=== PATIENT | male | born 1955 | race Caucasian/White ===

== ENCOUNTER 2021-07-15 10:04 | Emergency (ER) | payer MEDICARE, SELFPAY ==
[2021-07-15] VITALS (18 sets, daily range): BP systolic 117–148; BP diastolic 73–100; PULSE 57–78; RESP 14–24; TEMP 36.7; O2SAT 93–98; BMI 31.2
--- NOTE | 2021-07-15 10:16 | DI.RAD.S_ITS ---
PROCEDURE: XR CHEST 2V INDICATIONS: shortness of breath TECHNIQUE: 2 views of the chest were acquired. COMPARISON: None. FINDINGS: Surgical changes and devices: None. Lungs and pleura: Lungs are clear. No pleural effusions or pneumothorax. Mediastinum: Mediastinal contours are normal. Heart size is normal. Bones and chest wall: No suspicious bony abnormalities. Soft tissues appear unremarkable. IMPRESSION: No acute cardiopulmonary pathology. Dictated by: Taqueria Ennis M.D. on 07/15/2021 at 11:24 Approved by: Taqueria Ennis M.D. on 07/15/2021 at 11:24
[2021-07-15 10:35] LABS: Add Manual Diff / Slide Review NO; Basophils Absolute Auto 0 /uL (0-100); Basophils Percent Auto 0.8 % (0-2); Eosinophils Absolute Auto 100 /uL (0-450); Eosinophils Percent Auto 2.5 % (2-4); Hematocrit 39.5 % (41-53); Lymphocytes Absolute Auto 1200 /uL (1100-4500); Lymphocytes Percent Auto 26.2 % (25-40); Mean Corpuscular HGB Conc 35.5 % (30-36); Mean Corpuscular Hemoglobin 31.4 PG (26-34); Mean Corpuscular Volume 88.5 fL (80-100); Monocytes Absolute Auto 600 /uL (0-900); Monocytes Percent Auto 12.8 % (3-14); Neutrophils Absolute Auto 2700 /uL (1500-7000); Neutrophils Percent Auto 57.7 % (50-75); Platelet Count 185 X10^3/uL (150-400); Red Blood Cell Count 4.46 X10^6/uL (4.5-5.9); Red Cell Distribution Width 13.1 % (11.6-14.8); White Blood Cell Count 4.6 X10^3/uL (4.5-11.0)
[2021-07-15 10:44] LABS: Alanine Aminotransferase 22 IU/L (<50); Albumin 4.5 g/dL (3.5-5.0); Albumin Globulin Ratio 1.5 (1.0-2.8); Alkaline Phosphatase 78 U/L (38-126); Aspartate Aminotransferase 29 IU/L (17-59); BUN Creatinine Ratio 16.2 (6-22); Bilirubin Total 0.6 mg/dL (0.2-1.3); Blood Urea Nitrogen 17 mg/dL (9-20); Calcium 8.8 mg/dL (8.4-10.2); Carbon Dioxide 26 mmol/L (22-32); Chloride 107 mmol/L (98-107); Estimated Glomerular Filt Rate > 60 mL/min (>60); Globulin 3.1 g/dL (1.7-4.1); Glucose 117 mg/dL (80-110); HEMOLYSIS < 15 (0-50); Potassium 3.8 mmol/L (3.4-5.1); Sodium 140 mmol/L (137-145); Total Protein 7.6 g/dL (6.3-8.2)
[2021-07-15 10:45] LABS: Lactate (Lactic Acid) 1.2 mmol/L (0.7-2.1)
[2021-07-15 10:53] LABS: NT-proBNP (BNP-Adult 18+) 57 pg/mL (<125)
[2021-07-15 11:03] LABS: Creatine Kinase 206 U/L (55-170)
[2021-07-15 11:17] LABS: Troponin I < 0.012 ng/mL (0.01-0.034)
[2021-07-15 11:19] LABS: CKMB % Relative Index 1.3 % (1.5-5.0); Creatine Kinase MB 2.59 ng/mL (<2.37)
--- NOTE | 2021-07-15 13:52 | ED.EXTPRO ---
HPI - Extremity Problem <DAVION Olson - Last Filed: 07/15/21 16:36> General Chief complaint: Extremity Problem,Nontraumatic Stated complaint: Swollen Feet x 3 days Time Seen by Provider: 07/15/21 10:46 Source: patient Mode of arrival: Ambulatory History of Present Illness HPI Narrative: This is a 66-year-old male with history of hypertension on three antihypertensives who presents to the emergency department complaining of swollen lower extremities for the last three days without any trauma, pain, sensation changes, shortness of breath, chest pain, difficulty breathing or other symptom. Patient denies any cardiac history, lung problems, swelling in any other area. He states he had a fairly physical last few days of moving stuff around in the garage, states that he has been active as he normally use, denies history of swollen lower legs in the past. He states that he takes his hydrochlorothiazide approximately 5 times per week, and he also takes amlodipine and lisinopril 10 mg daily. He states that he has been taking his other medications every day and this does not take his hydrochlorothiazide before he goes to the store or has busy errand days so he doesn't have to void so much. Patient denies any diaphoresis illness, abdominal pain, or any other symptom whatsoever. Related Data Allergies Allergy/AdvReac Type Severity Reaction Status Date / Time No Known Drug Allergies Allergy Verified 07/15/21 10:16 Review of Systems <DAVION Olson - Last Filed: 07/15/21 16:36> Review of Systems Narrative: General: denies fever, chills, malaise, sweats, fatigue Head/Neck: denies headache, neck pain, dizziness Eyes: denies visual changes, eye pain Cardio: denies chest pain, palpitations, edema Respiratory: denies dyspnea, cough, orthopnea GI: denies abdominal pain, nausea, vomiting, or diarrhea : denies dysuria, hematuria, urinary retention, frequency or incontinence MSK: denies joint pain, muscle weakness, endorses lower extremity swelling which is fairly mild but equal bilaterally, denies sensation changes Skin: denies rash, itching, skin lesions or other Neuro: denies numbness, tingling Patient History <DAVION Olson - Last Filed: 07/15/21 16:36> Social History Smoking Status: Unknown if ever smoked Smoking Status: Unknown if ever smoked alcohol intake frequency: holidays/special occasions only Substance Use Type: does not use Exam <DAVION Olson - Last Filed: 07/15/21 16:36> Narrative Exam Narrative: Independently reviewed vitals signs and nursing notes. General: cooperative, comfortable, in no acute distress, well groomed Head: atraumatic, symmetrical facial expressions Neck: supple Eyes: equal round and reactive, EOMI, conjunctiva normal Nose: nares patent, no rhinorrhea Mouth/Throat: moist mucus membranes Cardiovascular: regular rate and rhythm, no peripheral edema, warm extremities, S1-S2 without murmur, pulses are 2+ in extremities x4, cap refills brisk, dependent edema in lower extremities approximately 1+, no pitting edema over the tibial tuberosities bilaterally, no discoloration, erythema, wound, or sensation changes Respiratory: normal effort, able to speak in complete sentences, no audible wheezing, stridor, or rales. No retractions or tachypnea. GI: abdomen soft, nontender to palpation, nondistended, no masses, no exquisite tenderness with exam, without guarding or rebound. MSK: moves all extremities, neurovascularly intact, no weakness, normal tone Skin: brisk capillary refill, no rash, no erythema Neuro: normal speech and cognition, A&O x3 Psych: mental status is grossly normal, congruent mood, normal affect, pleasant and cooperative Initial Vital Signs Initial Vital Signs: Vital Signs Pulse Oximetry 96 07/15/21 10:13 <Melissa Meyer DO - Last Filed: 07/16/21 20:02> Initial Vital Signs Initial Vital Signs: Vital Signs Pulse Oximetry 96 07/15/21 10:13 Course <DAVION Olson - Last Filed: 07/15/21 16:36> Orders Ordered: ED Orders 07/15/21 10:16 XR chest 2V Stat Troponin & CK Cardiac Panel Stat EKG-12 Lead Stat Measure peak expiratory flow ONCE RT Consult Eval and Treat Now 07/15/21 10:25 Complete Blood Count AUTO DIFF Stat Comprehensive Metabolic Panel Stat Lactate (Lactic Acid) Stat NT-proBNP (BNP-Adult 18+) Stat Vital Signs Vital signs: Vital Signs - 8 hr 07/15/21 10:13 07/15/21 10:14 07/15/21 10:16 Temperature 98.1 F Pulse Rate 77 78 Pulse Rate [Bilateral Dorsalis Pedis] Respiratory Rate 15 Blood Pressure 134/100 H 134/100 H Pulse Oximetry 96 97 97 07/15/21 10:18 07/15/21 10:34 07/15/21 11:00 Temperature Pulse Rate 72 72 61 Pulse Rate [Bilateral Dorsalis Pedis] Respiratory Rate 19 23 14 Blood Pressure 145/73 H Pulse Oximetry 97 98 96 07/15/21 11:28 07/15/21 11:30 07/15/21 11:45 Temperature Pulse Rate 63 67 63 Pulse Rate [Bilateral Dorsalis Pedis] 60 Respiratory Rate 18 24 24 Blood Pressure 125/83 136/87 Pulse Oximetry 97 98 96 07/15/21 12:00 07/15/21 12:15 07/15/21 12:43 Temperature Pulse Rate 59 L 58 L 62 Pulse Rate [Bilateral Dorsalis Pedis] Respiratory Rate 16 14 16 Blood Pressure 117/79 120/77 Pulse Oximetry 96 93 95 07/15/21 12:45 07/15/21 13:00 07/15/21 13:15 Temperature Pulse Rate 64 57 L 58 L Pulse Rate [Bilateral Dorsalis Pedis] Respiratory Rate 18 16 15 Blood Pressure 127/81 Pulse Oximetry 98 95 97 07/15/21 13:30 07/15/21 13:45 07/15/21 13:58 Temperature Pulse Rate 68 67 61 Pulse Rate [Bilateral Dorsalis Pedis] Respiratory Rate 18 19 Blood Pressure 134/78 148/84 H Pulse Oximetry 97 96 96 <Melissa Meyer, - Last Filed: 07/16/21 20:02> Orders Ordered: ED Orders 07/15/21 10:16 XR chest 2V Stat Troponin & CK Cardiac Panel Stat EKG-12 Lead Stat Measure peak expiratory flow ONCE RT Consult Eval and Treat Now 07/15/21 10:25 Complete Blood Count AUTO DIFF Stat Comprehensive Metabolic Panel Stat Lactate (Lactic Acid) Stat NT-proBNP (BNP-Adult 18+) Stat Vital Signs Vital signs: Vital Signs - 8 hr 07/15/21 10:13 07/15/21 10:14 07/15/21 10:16 Temperature 98.1 F Pulse Rate 77 78 Pulse Rate [Bilateral Dorsalis Pedis] Respiratory Rate 15 Blood Pressure 134/100 H 134/100 H Pulse Oximetry 96 97 97 07/15/21 10:18 07/15/21 10:34 07/15/21 11:00 Temperature Pulse Rate 72 72 61 Pulse Rate [Bilateral Dorsalis Pedis] Respiratory Rate 19 23 14 Blood Pressure 145/73 H Pulse Oximetry 97 98 96 07/15/21 11:28 07/15/21 11:30 07/15/21 11:45 Temperature Pulse Rate 63 67 63 Pulse Rate [Bilateral Dorsalis Pedis] 60 Respiratory Rate 18 24 24 Blood Pressure 125/83 136/87 Pulse Oximetry 97 98 96 07/15/21 12:00 07/15/21 12:15 07/15/21 12:43 Temperature Pulse Rate 59 L 58 L 62 Pulse Rate [Bilateral Dorsalis Pedis] Respiratory Rate 16 14 16 Blood Pressure 117/79 120/77 Pulse Oximetry 96 93 95 07/15/21 12:45 07/15/21 13:00 07/15/21 13:15 Temperature Pulse Rate 64 57 L 58 L Pulse Rate [Bilateral Dorsalis Pedis] Respiratory Rate 18 16 15 Blood Pressure 127/81 Pulse Oximetry 98 95 97 07/15/21 13:30 07/15/21 13:45 07/15/21 13:58 Temperature Pulse Rate 68 67 61 Pulse Rate [Bilateral Dorsalis Pedis] Respiratory Rate 18 19 Blood Pressure 134/78 148/84 H Pulse Oximetry 97 96 96 MDM - Extremity (Nontraumatic) <Kailee Carreon [facility] - Last Filed: 07/15/21 16:36> Lab Data Result diagrams: 07/15/21 10:25 07/15/21 10:25 Labs: Lab Results 07/15/21 07/15/21 07/15/21 Range/Units 10:16 10:25 10:25 WBC 4.6 (4.5-11.0) X10^3/uL RBC 4.46 L (4.5-5.9) X10^6/uL Hgb 14.0 (13.5-17.5) g/dL Hct 39.5 L (41-53) % MCV 88.5 (80-100) fL MCH 31.4 (26-34) PG MCHC 35.5 (30-36) % RDW 13.1 (11.6-14.8) % Plt Count 185 (150-400) X10^3/uL Neut % (Auto) 57.7 (50-75) % Lymph % (Auto) 26.2 (25-40) % Noble % (Auto) 12.8 (3-14) % Eos % (Auto) 2.5 (2-4) % Baso % (Auto) 0.8 (0-2) % Neut # (Auto) 2700 (6958-2766) /uL Lymph # (Auto) 1200 (8503-5241) /uL Noble # (Auto) 600 (0-900) /uL Eos # (Auto) 100 (0-450) /uL Baso # (Auto) 0 (0-100) /uL Sodium 140 (137-145) mmol/L Potassium 3.8 (3.4-5.1) mmol/L Chloride 107 (98-107) mmol/L Carbon Dioxide 26 (22-32) mmol/L BUN 17 (9-20) mg/dL Creatinine 1.05 (0.66-1.25) mg/dL Estimated GFR > 60 (>60) mL/min BUN/Creatinine Ratio 16.2 (6-22) Glucose 117 H (80-110) mg/dL Lactate (0.7-2.1) mmol/L Calcium 8.8 (8.4-10.2) mg/dL Total Bilirubin 0.6 (0.2-1.3) mg/dL AST 29 (17-59) IU/L ALT 22 (<50) IU/L Alkaline Phosphatase 78 (38-126) U/L Total Creatine Kinase 206 H (55-170) U/L CK-MB (CK-2) 2.59 H (<2.37) ng/mL CK-MB (CK-2) Rel Index 1.3 L (1.5-5.0) % Troponin I < 0.012 (0.01-0.034) ng/mL NT-Pro-B Natriuret Pep 57 (<125) pg/mL Total Protein 7.6 (6.3-8.2) g/dL Albumin 4.5 (3.5-5.0) g/dL Globulin 3.1 (1.7-4.1) g/dL Albumin/Globulin Ratio 1.5 (1.0-2.8) 07/15/21 Range/Units 10:25 WBC (4.5-11.0) X10^3/uL RBC (4.5-5.9) X10^6/uL Hgb (13.5-17.5) g/dL Hct (41-53) % MCV (80-100) fL MCH (26-34) PG MCHC (30-36) % RDW (11.6-14.8) % Plt Count (150-400) X10^3/uL Neut % (Auto) (50-75) % Lymph % (Auto) (25-40) % Noble % (Auto) (3-14) % Eos % (Auto) (2-4) % Baso % (Auto) (0-2) % Neut # (Auto) (1621-7782) /uL Lymph # (Auto) (6346-4050) /uL Noble # (Auto) (0-900) /uL Eos # (Auto) (0-450) /uL Baso # (Auto) (0-100) /uL Sodium (137-145) mmol/L Potassium (3.4-5.1) mmol/L Chloride (98-107) mmol/L Carbon Dioxide (22-32) mmol/L BUN (9-20) mg/dL Creatinine (0.66-1.25) mg/dL Estimated GFR (>60) mL/min BUN/Creatinine Ratio (6-22) Glucose (80-110) mg/dL Lactate 1.2 (0.7-2.1) mmol/L Calcium (8.4-10.2) mg/dL Total Bilirubin (0.2-1.3) mg/dL AST (17-59) IU/L ALT (<50) IU/L Alkaline Phosphatase (38-126) U/L Total Creatine Kinase (55-170) U/L CK-MB (CK-2) (<2.37) ng/mL CK-MB (CK-2) Rel Index (1.5-5.0) % Troponin I (0.01-0.034) ng/mL NT-Pro-B Natriuret Pep (<125) pg/mL Total Protein (6.3-8.2) g/dL Albumin (3.5-5.0) g/dL Globulin (1.7-4.1) g/dL Albumin/Globulin Ratio (1.0-2.8) Imaging Data Chest x-ray: Radiologist's Impression: PROCEDURE:? XR CHEST 2V ? INDICATIONS:? shortness of breath ? TECHNIQUE:? 2 views of the chest were acquired.? ? COMPARISON:? None. ? FINDINGS:? ? Surgical changes and devices:? None.? ? Lungs and pleura:? Lungs are clear.? No pleural effusions or pneumothorax.? ? Mediastinum:? Mediastinal contours are normal.? Heart size is normal.? ? Bones and chest wall:? No suspicious bony abnormalities.? Soft tissues appear unremarkable.? ? IMPRESSION:? No acute cardiopulmonary pathology. ? ? Dictated by: Taqueria Ennis M.D. on 07/15/2021 at 11:24 ? ? Approved by: Taqueria Ennis M.D. on 07/15/2021 at 11:24 ? ECG Data Interpretation: EKG independently reviewed by myself and Dr. Meyer and reveals normal sinus rhythm at 72 bpm with regular axis and intervals. No STEMI, ST segment changes, arrhythmia, or acute ischemic changes. MDM Narrative Medical decision making narrative: This is a pleasant 66-year-old male with history of hypertension, who presents to the emergency department with only symptom of swelling in his lower extremities for the last three days. He states that increased physical exertion over the last couple of days while he has been moving things around in his garage. He denies any pain anywhere, denies any symptoms of heart failure including shortness of breath, difficulty breathing, chest pain, palpitations, denies any symptoms of illness including sore throat, cough, denies any pain in her lower extremities or muscle spasms. Denies any discoloration, on exam, he has mild lower extremity edema bilaterally, no discoloration, erythema, or tenderness to palpation. Lab work is grossly unremarkable, troponin is negative, BNP is 57, total CK is 206, CK-MB is 2.59, CK-MB relative index is 0.3 is low. No leukocytosis, or other abnormal lab findings. This is likely related to physical exertion, diet, or inconsistent HCTZ dosing at home. Recommend patient continue to take his HCTZ daily, put his feet up a couple times a day, consume a low-sodium diet, stay hydrated, and monitor his legs for worsening. They are equal bilaterally, no pitting edema over tibial tuberosities, PT and DP pulses are 2+, brisk cap refill. Discussed these findings with patient, chest x-ray does not show any pulmonary infiltrate, pleural effusion, cardiomegaly or other abnormal finding. Recommend patient follow-up with his primary care provider for any new or worsening symptoms. Patient is appropriate and amenable to discharge home. Vital signs are stable on repeat examination is unremarkable. Patient has been informed of results. Patient has been given strict return to ER precautions for any new or worsening symptoms. Patient understands to follow up closely with outpatient providers as instructed. Patient understands plan and agrees to discharge home. All questions and concerns answered at this time. <Melissa Meyer, DO - Last Filed: 07/16/21 20:02> Lab Data Labs: Lab Results 07/15/21 07/15/21 07/15/21 Range/Units 10:16 10:25 10:25 WBC 4.6 (4.5-11.0) X10^3/uL RBC 4.46 L (4.5-5.9) X10^6/uL Hgb 14.0 (13.5-17.5) g/dL Hct 39.5 L (41-53) % MCV 88.5 (80-100) fL MCH 31.4 (26-34) PG MCHC 35.5 (30-36) % RDW 13.1 (11.6-14.8) % Plt Count 185 (150-400) X10^3/uL Neut % (Auto) 57.7 (50-75) % Lymph % (Auto) 26.2 (25-40) % Noble % (Auto) 12.8 (3-14) % Eos % (Auto) 2.5 (2-4) % Baso % (Auto) 0.8 (0-2) % Neut # (Auto) 2700 (6719-9010) /uL Lymph # (Auto) 1200 (4781-9678) /uL Noble # (Auto) 600 (0-900) /uL Eos # (Auto) 100 (0-450) /uL Baso # (Auto) 0 (0-100) /uL Sodium 140 (137-145) mmol/L Potassium 3.8 (3.4-5.1) mmol/L Chloride 107 (98-107) mmol/L Carbon Dioxide 26 (22-32) mmol/L BUN 17 (9-20) mg/dL Creatinine 1.05 (0.66-1.25) mg/dL Estimated GFR > 60 (>60) mL/min BUN/Creatinine Ratio 16.2 (6-22) Glucose 117 H (80-110) mg/dL Lactate (0.7-2.1) mmol/L Calcium 8.8 (8.4-10.2) mg/dL Total Bilirubin 0.6 (0.2-1.3) mg/dL AST 29 (17-59) IU/L ALT 22 (<50) IU/L Alkaline Phosphatase 78 (38-126) U/L Total Creatine Kinase 206 H (55-170) U/L CK-MB (CK-2) 2.59 H (<2.37) ng/mL CK-MB (CK-2) Rel Index 1.3 L (1.5-5.0) % Troponin I < 0.012 (0.01-0.034) ng/mL NT-Pro-B Natriuret Pep 57 (<125) pg/mL Total Protein 7.6 (6.3-8.2) g/dL Albumin 4.5 (3.5-5.0) g/dL Globulin 3.1 (1.7-4.1) g/dL Albumin/Globulin Ratio 1.5 (1.0-2.8) 07/15/21 Range/Units 10:25 WBC (4.5-11.0) X10^3/uL RBC (4.5-5.9) X10^6/uL Hgb (13.5-17.5) g/dL Hct (41-53) % MCV (80-100) fL MCH (26-34) PG MCHC (30-36) % RDW (11.6-14.8) % Plt Count (150-400) X10^3/uL Neut % (Auto) (50-75) % Lymph % (Auto) (25-40) % Noble % (Auto) (3-14) % Eos % (Auto) (2-4) % Baso % (Auto) (0-2) % Neut # (Auto) (0758-8515) /uL Lymph # (Auto) (0391-8056) /uL Noble # (Auto) (0-900) /uL Eos # (Auto) (0-450) /uL Baso # (Auto) (0-100) /uL Sodium (137-145) mmol/L Potassium (3.4-5.1) mmol/L Chloride (98-107) mmol/L Carbon Dioxide (22-32) mmol/L BUN (9-20) mg/dL Creatinine (0.66-1.25) mg/dL Estimated GFR (>60) mL/min BUN/Creatinine Ratio (6-22) Glucose (80-110) mg/dL Lactate 1.2 (0.7-2.1) mmol/L Calcium (8.4-10.2) mg/dL Total Bilirubin (0.2-1.3) mg/dL AST (17-59) IU/L ALT (<50) IU/L Alkaline Phosphatase (38-126) U/L Total Creatine Kinase (55-170) U/L CK-MB (CK-2) (<2.37) ng/mL CK-MB (CK-2) Rel Index (1.5-5.0) % Troponin I (0.01-0.034) ng/mL NT-Pro-B Natriuret Pep (<125) pg/mL Total Protein (6.3-8.2) g/dL Albumin (3.5-5.0) g/dL Globulin (1.7-4.1) g/dL Albumin/Globulin Ratio (1.0-2.8) ECG Data Interpretation: EKG independently reviewed by myself and Dr. Meyer and reveals normal sinus rhythm at 72 bpm with regular axis and intervals. No STEMI, ST segment changes, arrhythmia, or acute ischemic changes. EKG rate of 72, pr of 190, qrs of 102, qtc 422. No acute ST changes appreciated. Discharge Plan Departure Patient Disposition: Home Clinical Impression: Leg swelling Activity Restrictions/Additional Instructions: *You have been diagnosed with swelling of your lower extremities without cardiac cause. This is likely related to your increased activity over the last three days, potentially a component of not taking your HCTZ, sodium in your diet, or GIST muscle fatigue and localized swelling of her muscles in her lower legs with generalized swelling in both. You did have some muscle strain evidence on your lab work but it was not much, and it was not cardiac related. Your heart and lungs were normal on chest x-ray without any signs of fluid in your lungs, or heart failure evidence on your lab work. Your kidney function and liver function all look great. Please follow-up with Dr. Santiago as you need to in the future, continue taking your medications each day, I would recommend taking HCTZ each day since you have swelling currently. Try to eat a low-sodium diet, put your legs up a couple times each day. Please return for any new or worsening concerns, thank you for trusting us with your care, your electrolytes and everything else were imbalance on your lab work. I hope you have a great week. *What to do: *Please continue to take your regular medications as directed. [ ] New medication prescriptions sent to your pharmacy: [ ] [ ] New medication written as a paper prescription [ x] No new medications given *Please follow up with your primary care provider in 2-3 days, call for an appointment. Let them know you were seen in the Emergency Department and that we asked that you be seen for follow-up. We will electronically transmit a record of today's note if your PCP is in our system *If you do not have a primary care provider please contact [phone] to establish care with one of the [facility] primary care providers. *Return to Emergency Department if you should have any new, worsening or concerning symptoms, such as [fever greater than 101F, chills, worsening pain, persistent vomiting or other bothersome symptoms] Referrals: Darwin Morgan DO [Primary Care Provider] -
== END 2021-07-15 13:59 | disposition home or self-care (01) ==
PROVIDERS: Emergency Medicine; Emergency Provider Nurse Practitioner Critical Care Medicine; PCP Family Medicine
DX: M79.89 Other specified soft tissue disorders (principal); R06.02 Shortness of breath
CPT/HCPCS: 36415; 71046; 80053; 82550; 82553; 83605; 83880; 84484; 85025; 93005; 99284

== ENCOUNTER 2021-07-23 11:27 | Emergency (ER) | payer MEDICARE, SELFPAY ==
[2021-07-23] VITALS (7 sets, daily range): BP systolic 110–144; BP diastolic 70–89; PULSE 66–83; RESP 10–18; TEMP 36.6; O2SAT 94–99; BMI 27.5
--- NOTE | 2021-07-23 11:29 | DI.RAD.S_ITS ---
PROCEDURE: XR CHEST 1V INDICATIONS: chest pain TECHNIQUE: One view of the chest was acquired. COMPARISON: [facility], CR, XR CHEST 2V, 07/15/2021, 10:15. FINDINGS: Surgical changes and devices: None. Lungs and pleura: Lungs are clear. No pleural effusions or pneumothorax. Mediastinum: Mediastinal contours appear normal. Heart size is normal. Bones and chest wall: No suspicious bony lesions. Overlying soft tissues appear unremarkable. IMPRESSION: No acute cardiopulmonary abnormality. Dictated by: Flavio Clark M.D. on 07/23/2021 at 12:05 Approved by: Flavio Clark M.D. on 07/23/2021 at 12:07
[2021-07-23 11:52] LABS: INR 1.1 (0.9-1.3); Prothrombin Time 11.7 SECONDS (10.1-12.7)
[2021-07-23 11:55] LABS: PTT Partial Thromboplastin Tim 33 SECONDS (26.4-36.2)
[2021-07-23 11:59] LABS: Alanine Aminotransferase 26 IU/L (<50); Albumin 4.7 g/dL (3.5-5.0); Albumin Globulin Ratio 1.4 (1.0-2.8); Alkaline Phosphatase 80 U/L (38-126); Aspartate Aminotransferase 34 IU/L (17-59); BUN Creatinine Ratio 13.9 (6-22); Bilirubin Total 0.9 mg/dL (0.2-1.3); Blood Urea Nitrogen 16 mg/dL (9-20); Calcium 9.3 mg/dL (8.4-10.2); Carbon Dioxide 24 mmol/L (22-32); Chloride 104 mmol/L (98-107); Creatine Kinase 174 U/L (55-170); Estimated Glomerular Filt Rate > 60 mL/min (>60); Globulin 3.4 g/dL (1.7-4.1); Glucose 111 mg/dL (80-110); HEMOLYSIS < 15 (0-50); Lipase 65 U/L (23-300); Magnesium 1.8 mg/dL (1.6-2.3); Potassium 3.8 mmol/L (3.4-5.1); Sodium 139 mmol/L (137-145); Total Protein 8.1 g/dL (6.3-8.2)
[2021-07-23 12:06] LABS: Add Manual Diff / Slide Review NO; Basophils Absolute Auto 100 /uL (0-100); Basophils Percent Auto 1.1 % (0-2); Eosinophils Absolute Auto 100 /uL (0-450); Eosinophils Percent Auto 1.7 % (2-4); Hematocrit 40.6 % (41-53); Hemoglobin 14.4 g/dL (13.5-17.5); Lymphocytes Absolute Auto 1500 /uL (1100-4500); Lymphocytes Percent Auto 20.4 % (25-40); Mean Corpuscular HGB Conc 35.4 % (30-36); Mean Corpuscular Hemoglobin 30.9 PG (26-34); Mean Corpuscular Volume 87.3 fL (80-100); Monocytes Absolute Auto 800 /uL (0-900); Monocytes Percent Auto 10.7 % (3-14); Neutrophils Absolute Auto 4800 /uL (1500-7000); Neutrophils Percent Auto 66.1 % (50-75); Platelet Count 247 X10^3/uL (150-400); Red Blood Cell Count 4.65 X10^6/uL (4.5-5.9); White Blood Cell Count 7.2 X10^3/uL (4.5-11.0)
[2021-07-23 12:11] LABS: NT-proBNP (BNP-Adult 18+) 68 pg/mL (<125); Troponin I < 0.012 ng/mL (0.01-0.034)
[2021-07-23 12:14] LABS: CKMB % Relative Index 1.5 % (1.5-5.0); Creatine Kinase MB 2.53 ng/mL (<2.37)
--- NOTE | 2021-07-23 12:46 | ED.CHESTPAIN ---
HPI - Chest Pain General Chief Complaint: Chest Pain Stated Complaint: Swollen feet & chest pain Time Seen by Provider: 07/23/21 11:43 Source: patient Mode of arrival: Ambulatory Limitations: no limitations History of Present Illness HPI narrative: Patient is a 66-year-old male with history of hypertension presenting today with chest discomfort. He says that he has had chest heaviness ongoing for at least 24 hours. It is worse when he rolls over or takes a deep breath. It is nonradiating. He has never had any discomfort like this before. He denies any shortness of breath with exertion. He was seen evaluated here on July 15 for lower extremity edema. He is on hydrochlorothiazide he does not take it every day but he has been taking. He is currently getting established with any primary care provider but he has yet to see them. He was concerned today because of his constellation of symptoms. He denies any orthopnea. No fevers no cough. He has not traveled anywhere no hemoptysis. Related Data Allergies Allergy/AdvReac Type Severity Reaction Status Date / Time No Known Drug Allergies Allergy Verified 07/23/21 11:33 Review of Systems Review of Systems Narrative: GENERAL: Denies chills, fatigue, malaise, fever, sweats, travel HEENT: Denies sinus pain, ear pain, sore throat, difficulty swallowing, neck pain RESPIRATORY: Denies dyspnea, cough, wheezing, hemoptysis, sputum. CARDIOVASCULAR: See HPI GASTROINTESTINAL: Denies nausea, vomiting, abdominal pain, diarrhea, constipation, melena. : Denies dysuria, frequency, incontinence, hematuria, urinary retention, flank pain. MUSCULOSKELETAL: Denies weakness, joint pain, or bony pain SKIN: No rash, no erythema, no pruritus NEUROLOGIC: Denies weakness, dizziness, headache, numbness, change in speech, confusion PSYCHIATRIC: No concerning psychosocial issues. 12 point review of systems is negative except for those stated above and HPI Patient History Social History Smoking Status: Former smoker Smoking Status: Former smoker alcohol intake frequency: holidays/special occasions only Substance Use Type: does not use Exam Initial Vital Signs Initial Vital Signs: Vital Signs Pulse Rate 83 07/23/21 11:32 Blood Pressure 144/89 H 07/23/21 11:32 Pulse Oximetry 96 07/23/21 11:32 Oxygen Delivery Method 07/23/21 11:32 GENERAL: Alert well-appearing 66-year-old male and in no acute distress. HEENT: Head atraumatic,EOMI, pupils reactive, face symmetric, moist mucous membranes CARDIOVASCULAR: Regular rate and rhythm without murmurs, rubs or gallops. RESPIRATORY: Breath sounds equal bilaterally, no wheezes rales or rhonchi. ABDOMEN: Soft, nontender. Normoactive bowel sounds all 4 quadrants. No guarding or rebound. EXTREMITIES: Normal range of motion, no clubbing or edema. Neurovascularly intact NEUROLOGICAL: Alert and oriented x4.Normal gait and speech. SKIN: Warm, dry, no laceration, no petechiae, no rashes or lesions. Scores HEART Score Heart Score history: Slightly Suspicious Heart Score EKG: Normal Heart Score Age: > or = 65 years old Heart Score risk factors: 1-2 risk factors Heart Score troponin: < or = to normal limit Heart Score Total: 3 Course Orders Ordered: ED Orders 07/23/21 11:29 XR chest 1V Stat EKG-12 Lead Stat 07/23/21 11:35 BNP [NT-proBNP (BNP-Adult 18+)] Stat BNP [NT-proBNP (BNP-Adult 18+)] Stat Complete Blood Count AUTO DIFF Stat Comprehensive Metabolic Panel Stat Lipase Stat Magnesium Stat Partial Thromboplastin Time Stat Prothrombin Time INR Stat Troponin & CK Cardiac Panel Stat Vital Signs Vital signs: Vital Signs - 8 hr 07/23/21 11:36 07/23/21 11:52 07/23/21 11:32 Temperature 97.9 F Pulse Rate 78 Respiratory Rate 18 Blood Pressure 144/89 H 144/89 H Pulse Oximetry 99 Oxygen Delivery Method Room Air 07/23/21 11:32 07/23/21 12:00 07/23/21 12:00 Temperature Pulse Rate 83 67 Respiratory Rate 10 L Blood Pressure 110/70 Pulse Oximetry 96 96 Oxygen Delivery Method Room Air Room Air 07/23/21 12:30 07/23/21 12:31 07/23/21 12:31 Temperature Pulse Rate 66 66 Respiratory Rate 11 L 13 Blood Pressure 116/73 Pulse Oximetry 94 97 Oxygen Delivery Method Room Air 07/23/21 13:00 07/23/21 13:00 Temperature Pulse Rate 71 Respiratory Rate 18 Blood Pressure 132/86 Pulse Oximetry 97 Oxygen Delivery Method Room Air MDM - Chest Pain Lab Data Result diagrams: 07/23/21 11:35 07/23/21 11:35 Labs: Lab Results 07/23/21 07/23/21 07/23/21 Range/Units 11:35 11:35 11:35 WBC 7.2 (4.5-11.0) X10^3/uL RBC 4.65 (4.5-5.9) X10^6/uL Hgb 14.4 (13.5-17.5) g/dL Hct 40.6 L (41-53) % MCV 87.3 (80-100) fL MCH 30.9 (26-34) PG MCHC 35.4 (30-36) % RDW 13.0 (11.6-14.8) % Plt Count 247 (150-400) X10^3/uL Neut % (Auto) 66.1 (50-75) % Lymph % (Auto) 20.4 L (25-40) % [place] % (Auto) 10.7 (3-14) % Eos % (Auto) 1.7 L (2-4) % Baso % (Auto) 1.1 (0-2) % Neut # (Auto) 4800 (0282-0509) /uL Lymph # (Auto) 1500 (1800-4257) /uL [place] # (Auto) 800 (0-900) /uL Eos # (Auto) 100 (0-450) /uL Baso # (Auto) 100 (0-100) /uL PT 11.7 (10.1-12.7) SECONDS INR 1.1 (0.9-1.3) APTT 33 (26.4-36.2) SECONDS Sodium 139 (137-145) mmol/L Potassium 3.8 (3.4-5.1) mmol/L Chloride 104 (98-107) mmol/L Carbon Dioxide 24 (22-32) mmol/L BUN 16 (9-20) mg/dL Creatinine 1.15 (0.66-1.25) mg/dL Estimated GFR > 60 (>60) mL/min BUN/Creatinine Ratio 13.9 (6-22) Glucose 111 H (80-110) mg/dL Calcium 9.3 (8.4-10.2) mg/dL Magnesium 1.8 (1.6-2.3) mg/dL Total Bilirubin 0.9 (0.2-1.3) mg/dL AST 34 (17-59) IU/L ALT 26 (<50) IU/L Alkaline Phosphatase 80 (38-126) U/L Total Creatine Kinase 174 H (55-170) U/L CK-MB (CK-2) 2.53 H (<2.37) ng/mL CK-MB (CK-2) Rel Index 1.5 (1.5-5.0) % Troponin I < 0.012 (0.01-0.034) ng/mL NT-Pro-B Natriuret Pep 68 (<125) pg/mL Total Protein 8.1 (6.3-8.2) g/dL Albumin 4.7 (3.5-5.0) g/dL Globulin 3.4 (1.7-4.1) g/dL Albumin/Globulin Ratio 1.4 (1.0-2.8) Lipase 65 (23-300) U/L 07/23/21 Range/Units 11:35 WBC (4.5-11.0) X10^3/uL RBC (4.5-5.9) X10^6/uL Hgb (13.5-17.5) g/dL Hct (41-53) % MCV (80-100) fL MCH (26-34) PG MCHC (30-36) % RDW (11.6-14.8) % Plt Count (150-400) X10^3/uL Neut % (Auto) (50-75) % Lymph % (Auto) (25-40) % [place] % (Auto) (3-14) % Eos % (Auto) (2-4) % Baso % (Auto) (0-2) % Neut # (Auto) (1357-3662) /uL Lymph # (Auto) (7903-4597) /uL [place] # (Auto) (0-900) /uL Eos # (Auto) (0-450) /uL Baso # (Auto) (0-100) /uL PT (10.1-12.7) SECONDS INR (0.9-1.3) APTT (26.4-36.2) SECONDS Sodium (137-145) mmol/L Potassium (3.4-5.1) mmol/L Chloride (98-107) mmol/L Carbon Dioxide (22-32) mmol/L BUN (9-20) mg/dL Creatinine (0.66-1.25) mg/dL Estimated GFR (>60) mL/min BUN/Creatinine Ratio (6-22) Glucose (80-110) mg/dL Calcium (8.4-10.2) mg/dL Magnesium (1.6-2.3) mg/dL Total Bilirubin (0.2-1.3) mg/dL AST (17-59) IU/L ALT (<50) IU/L Alkaline Phosphatase (38-126) U/L Total Creatine Kinase (55-170) U/L CK-MB (CK-2) (<2.37) ng/mL CK-MB (CK-2) Rel Index (1.5-5.0) % Troponin I (0.01-0.034) ng/mL NT-Pro-B Natriuret Pep 68 (<125) pg/mL Total Protein (6.3-8.2) g/dL Albumin (3.5-5.0) g/dL Globulin (1.7-4.1) g/dL Albumin/Globulin Ratio (1.0-2.8) Lipase (23-300) U/L Imaging Data Chest x-ray: Radiologist's Impression: XRay Report Signed Patient: Govind Gillespie MR#: [id number] : 1955 Acct:[id number] Age/Sex: 66 / M Date of Service: 07/23/21 Loc: ED Accession Number: [id number] ?? Procedure: XR chest 1V Ordering Provider: Rosey Lieberman D.O. PROCEDURE:? XR CHEST 1V ? INDICATIONS:? chest pain ? TECHNIQUE:? One view of the chest was acquired.? ? COMPARISON:? [facility], , XR CHEST 2V, 07/15/2021, 10:15. ? FINDINGS:? ? Surgical changes and devices:? None.? ? Lungs and pleura:? Lungs are clear.? No pleural effusions or pneumothorax.? ? Mediastinum:? Mediastinal contours appear normal.? Heart size is normal.? ? Bones and chest wall:? No suspicious bony lesions.? Overlying soft tissues appear unremarkable.? ? IMPRESSION:? No acute cardiopulmonary abnormality. ? ? Dictated by: Flavio Clark M.D. on 07/23/2021 at 12:05 ? ? Approved by: Flavio Clark M.D. on 07/23/2021 at 12:07 ? ECG Data Interpretation: Normal sinus rhythm rate 70 p.r. interval 182 QRS [address] changes no T-wave inversion MDM Narrative Medical decision making narrative: Patient is here with chest heaviness which is worse with movement and deep breaths. More sounds more like pleurisy however he does have a history of hypertension. I still recommend outpatient cardiac stress testing. Heart score today in the emergency department is 3. He is not having any discomfort here. Discharge Plan Departure Patient Disposition: Home Clinical Impression: Atypical chest pain Instructions: DI for Atypical Chest Pain Activity Restrictions/Additional Instructions: *You have been diagnosed with atypical chest pain *What to do: At this time I do recommend outpatient cardiac testing such as stress test and echocardiogram. You need to return to emergency department immediately if symptoms are worsening. *Continue to take medications as directed Please take all blood pressure medications as prescribed *Follow up with your primary care provider in 2-3 days or call [phone] *Return to ER if you should have increasing chest discomfort shortness of breath palpitations passing out or or any new, worsening or concerning symptoms Referrals: Darwin Morgan DO [Primary Care Provider] - Visit Report Forms: Patient Portal/API
[2021-07-23 13:54] LABS: NT-proBNP (BNP-Adult 18+) 68 pg/mL (<125)
== END 2021-07-23 13:21 | disposition home or self-care (01) ==
PROVIDERS: Emergency Provider Emergency Medicine; PCP Family Medicine
DX: R07.9 Chest pain, unspecified (principal)
CPT/HCPCS: 36415; 71045; 80053; 82550; 82553; 83690; 83735; 83880; 84484; 85025; 85610; 85730; 93005; 93010; 99284

== ENCOUNTER 2021-07-25 06:29 | Emergency (ER) | payer MEDICARE, SELFPAY ==
[2021-07-25] VITALS (29 sets, daily range): BP systolic 90–140; BP diastolic 68–91; PULSE 56–120; RESP 14–26; TEMP 36.8; O2SAT 94–100; BMI 30.8
[2021-07-25 06:58] LABS: Add Manual Diff / Slide Review NO; Basophils Absolute Auto 100 /uL (0-100); Basophils Percent Auto 1.3 % (0-2); Eosinophils Absolute Auto 100 /uL (0-450); Eosinophils Percent Auto 2.6 % (2-4); Hematocrit 39.5 % (41-53); Hemoglobin 14.1 g/dL (13.5-17.5); Lymphocytes Absolute Auto 1100 /uL (1100-4500); Lymphocytes Percent Auto 19.4 % (25-40); Mean Corpuscular HGB Conc 35.6 % (30-36); Mean Corpuscular Hemoglobin 31.1 PG (26-34); Mean Corpuscular Volume 87.3 fL (80-100); Monocytes Absolute Auto 600 /uL (0-900); Monocytes Percent Auto 11.4 % (3-14); Neutrophils Absolute Auto 3600 /uL (1500-7000); Neutrophils Percent Auto 65.3 % (50-75); Platelet Count 205 X10^3/uL (150-400); Red Blood Cell Count 4.53 X10^6/uL (4.5-5.9); Red Cell Distribution Width 12.7 % (11.6-14.8); White Blood Cell Count 5.6 X10^3/uL (4.5-11.0)
[2021-07-25 07:04] LABS: INR 1.1 (0.9-1.3); Prothrombin Time 11.9 SECONDS (10.1-12.7)
[2021-07-25 07:06] LABS: PTT Partial Thromboplastin Tim 33 SECONDS (26.4-36.2)
[2021-07-25 07:08] LABS: Alanine Aminotransferase 27 IU/L (<50); Albumin 4.5 g/dL (3.5-5.0); Albumin Globulin Ratio 1.4 (1.0-2.8); Alkaline Phosphatase 72 U/L (38-126); Aspartate Aminotransferase 33 IU/L (17-59); Blood Urea Nitrogen 19 mg/dL (9-20); Carbon Dioxide 27 mmol/L (22-32); Chloride 106 mmol/L (98-107); Creatine Kinase 152 U/L (55-170); Estimated Glomerular Filt Rate > 60 mL/min (>60); Globulin 3.2 g/dL (1.7-4.1); Glucose 120 mg/dL (80-110); HEMOLYSIS < 15 (0-50); Lipase 65 U/L (23-300); Magnesium 1.8 mg/dL (1.6-2.3); Potassium 3.7 mmol/L (3.4-5.1); Sodium 138 mmol/L (137-145); Total Protein 7.7 g/dL (6.3-8.2)
[2021-07-25 07:19] LABS: Troponin I < 0.012 ng/mL (0.01-0.034)
[2021-07-25 07:23] LABS: CKMB % Relative Index 1.7 % (1.5-5.0); Creatine Kinase MB 2.62 ng/mL (<2.37)
--- NOTE | 2021-07-25 07:24 | ED_ITS ---
HPI - Arrhythmia/Palpitations General Chief Complaint: Arrhythmia/Palpitations Stated Complaint: thinks irregular heartbeat Time Seen by Provider: 07/25/21 06:33 Source: patient and other (girlfriend) Mode of arrival: Ambulatory Limitations: no limitations History of Present Illness HPI narrative: This is a 66-year-old male on HCTZ, amlodipine and lisinopril for hypertension, no dyslipidemia. No daily anticoagulants or aspirin. Patient started having some leg swelling at the beginning of the month, he had some intermittent chest discomfort which is changed side and occasional dyspnea exertion with stairs. He states no syncope. No chest pain overnight but patient woke up and felt an irregular beat in his chest, he checked his pulse and noted that it was fast and irregular. He has not had this typically in past. He denies any diaphoresis, no nausea or vomiting, no other GI or urinary symptoms. He states lower extremities are still swollen. Patient has not been diagnosed with AFib in past. He is new to the area and is established with a primary care to be seen August [address] Morgan. He moved here from [facility]. Patient denies any major surgeries. No known drug allergies. Denies tobacco, has 1 medium-sized alcoholic drink nightly, no illicit. He is accompanied by his girlfriend today. Related Data Previous Rx's Medication Instructions Recorded diltiazem HCl 180 mg 180 mg PO DAILY #30 caps 07/25/21 capsule,extended release 24 hr lisinopril 30 mg tablet 30 mg PO DAILY #30 tabs 07/25/21 rivaroxaban 20 mg tablet (Xarelto) 20 mg PO DAILY #30 tabs 07/25/21 Allergies Allergy/AdvReac Type Severity Reaction Status Date / Time No Known Drug Allergies Allergy Verified 07/23/21 11:33 Review of Systems Review of Systems ROS Unobtainable: All systems reviewed & are unremarkable except as noted in HPI and below Patient History Social History Smoking Status: Former smoker Smoking Status: Former smoker alcohol intake frequency: holidays/special occasions only Substance Use Type: does not use Exam Narrative Exam Narrative: GENERAL: Alert and oriented x three, male in mild distress. HEENT: Head normocephalic, atraumatic, EOMI, pupils reactive, face symmetric, moist mucous membranes NECK: Supple, full range of motion CARDIOVASCULAR: Tachycardic and irregularly irregular rate and rhythm without murmurs, rubs or gallops. No JVD. Positive pedal edema bilaterally. RESPIRATORY: Breath sounds equal bilaterally, no wheezes rales or rhonchi. No tachypnea accessory muscle use. ABDOMEN: Soft, nontender. Normoactive bowel sounds all 4 quadrants. No guarding or rebound, rigidity, no mass : No CVA tenderness EXTREMITIES: Normal range of motion, no clubbing or edema. Neurovascularly intact NEUROLOGICAL: Cranial nerves II through XII grossly intact. Moving all extremities SKIN: Warm, dry, no petechiae, no rashes or lesions. Initial Vital Signs Initial Vital Signs: Vital Signs Temperature 98.2 F 07/25/21 06:44 Pulse Rate 120 H 07/25/21 06:44 Respiratory Rate 18 07/25/21 06:44 Blood Pressure 139/81 07/25/21 06:44 Pulse Oximetry 98 07/25/21 06:44 Oxygen Delivery Method 07/25/21 06:44 Procedures Procedural Sedation Consent signed: Yes Time out performed: Yes Indication: cardioversion ASA Class: II Mallampati Airway Classification: Class II Time of Last PO Intake: 19:00 Preparation: monitoring coordinator applied, pulse oximeter, capnometry used, supplemental O2 applied, suction/airway equipment at bedside and IV secured Scores CHADS-VASc Congestive heart failure: no Hypertension: yes Age 75 years or older: no Diabetes mellitus: no Stroke, TIA, or TE: no Vascular disease: no Age 65 to 74 years: yes Sex category (female): Male CHADS-VASc Score: 2 Course Orders Ordered: Discontinued Medications Etomidate (Etomidate 2 Mg/Ml 10 Ml Vial) 10 mg 0.1 mg/kg (10 mg) IV NOW ONE Stop: 07/25/21 08:47 Last Admin: 07/25/21 10:07 Dose: Not Given Documented By: CONSUELO Rivaroxaban (Rivaroxaban 10 Mg Tablet) 20 mg PO NOW ONE Stop: 07/25/21 09:33 Last Admin: 07/25/21 10:07 Dose: 20 mg Documented By: CONSUELO Vital Signs Vital signs: Vital Signs - 8 hr 07/25/21 09:40 07/25/21 09:40 07/25/21 09:45 Pulse Rate 63 Respiratory Rate 19 Blood Pressure 121/80 138/85 Pulse Oximetry 98 07/25/21 09:45 07/25/21 09:50 07/25/21 09:50 Pulse Rate 59 L 61 Respiratory Rate 15 15 Blood Pressure 138/89 Pulse Oximetry 100 100 07/25/21 09:55 07/25/21 09:55 07/25/21 10:00 Pulse Rate 59 L Respiratory Rate 15 Blood Pressure 134/84 136/89 Pulse Oximetry 100 07/25/21 10:00 07/25/21 10:05 07/25/21 10:05 Pulse Rate 60 59 L Respiratory Rate 21 17 Blood Pressure 134/84 Pulse Oximetry 100 100 07/25/21 10:10 07/25/21 10:11 07/25/21 10:11 Pulse Rate 70 66 Respiratory Rate 18 17 Blood Pressure 138/86 Pulse Oximetry 100 100 MDM - Arrhythmia/Palpitations Lab Data Result diagrams: 07/25/21 06:45 07/25/21 06:45 Labs: Lab Results 07/25/21 07/25/21 07/25/21 Range/Units 06:45 06:45 06:45 WBC 5.6 (4.5-11.0) X10^3/uL RBC 4.53 (4.5-5.9) X10^6/uL Hgb 14.1 (13.5-17.5) g/dL Hct 39.5 L (41-53) % MCV 87.3 (80-100) fL MCH 31.1 (26-34) PG MCHC 35.6 (30-36) % RDW 12.7 (11.6-14.8) % Plt Count 205 (150-400) X10^3/uL Neut % (Auto) 65.3 (50-75) % Lymph % (Auto) 19.4 L (25-40) % [place] % (Auto) 11.4 (3-14) % Eos % (Auto) 2.6 (2-4) % Baso % (Auto) 1.3 (0-2) % Neut # (Auto) 3600 (7588-1621) /uL Lymph # (Auto) 1100 (5115-4255) /uL [place] # (Auto) 600 (0-900) /uL Eos # (Auto) 100 (0-450) /uL Baso # (Auto) 100 (0-100) /uL PT 11.9 (10.1-12.7) SECONDS INR 1.1 (0.9-1.3) APTT 33 (26.4-36.2) SECONDS Sodium 138 (137-145) mmol/L Potassium 3.7 (3.4-5.1) mmol/L Chloride 106 (98-107) mmol/L Carbon Dioxide 27 (22-32) mmol/L BUN 19 (9-20) mg/dL Creatinine 1.19 (0.66-1.25) mg/dL Estimated GFR > 60 (>60) mL/min BUN/Creatinine Ratio 16.0 (6-22) Glucose 120 H (80-110) mg/dL Calcium 9.0 (8.4-10.2) mg/dL Magnesium 1.8 (1.6-2.3) mg/dL Total Bilirubin 1.0 (0.2-1.3) mg/dL AST 33 (17-59) IU/L ALT 27 (<50) IU/L Alkaline Phosphatase 72 (38-126) U/L Total Creatine Kinase 152 (55-170) U/L CK-MB (CK-2) 2.62 H (<2.37) ng/mL CK-MB (CK-2) Rel Index 1.7 (1.5-5.0) % Troponin I < 0.012 (0.01-0.034) ng/mL Total Protein 7.7 (6.3-8.2) g/dL Albumin 4.5 (3.5-5.0) g/dL Globulin 3.2 (1.7-4.1) g/dL Albumin/Globulin Ratio 1.4 (1.0-2.8) Lipase 65 (23-300) U/L SARS-CoV-2 (PCR) (Negative) 07/25/21 Range/Units 06:45 WBC (4.5-11.0) X10^3/uL RBC (4.5-5.9) X10^6/uL Hgb (13.5-17.5) g/dL Hct (41-53) % MCV (80-100) fL MCH (26-34) PG MCHC (30-36) % RDW (11.6-14.8) % Plt Count (150-400) X10^3/uL Neut % (Auto) (50-75) % Lymph % (Auto) (25-40) % [place] % (Auto) (3-14) % Eos % (Auto) (2-4) % Baso % (Auto) (0-2) % Neut # (Auto) (9191-3601) /uL Lymph # (Auto) (6764-0013) /uL [place] # (Auto) (0-900) /uL Eos # (Auto) (0-450) /uL Baso # (Auto) (0-100) /uL PT (10.1-12.7) SECONDS INR (0.9-1.3) APTT (26.4-36.2) SECONDS Sodium (137-145) mmol/L Potassium (3.4-5.1) mmol/L Chloride (98-107) mmol/L Carbon Dioxide (22-32) mmol/L BUN (9-20) mg/dL Creatinine (0.66-1.25) mg/dL Estimated GFR (>60) mL/min BUN/Creatinine Ratio (6-22) Glucose (80-110) mg/dL Calcium (8.4-10.2) mg/dL Magnesium (1.6-2.3) mg/dL Total Bilirubin (0.2-1.3) mg/dL AST (17-59) IU/L ALT (<50) IU/L Alkaline Phosphatase (38-126) U/L Total Creatine Kinase (55-170) U/L CK-MB (CK-2) (<2.37) ng/mL CK-MB (CK-2) Rel Index (1.5-5.0) % Troponin I (0.01-0.034) ng/mL Total Protein (6.3-8.2) g/dL Albumin (3.5-5.0) g/dL Globulin (1.7-4.1) g/dL Albumin/Globulin Ratio (1.0-2.8) Lipase (23-300) U/L SARS-CoV-2 (PCR) Negative (Negative) Imaging Data Chest x-ray: Radiologist's Impresson: Close Chest X-Ray (Signed) Flavio Clark - 07/25/[address] [address] XRay Report Signed Patient: Govind Gillespie MR#: [id number] : 1955 Acct:[id number] Age/Sex: 66 / M Date of Service: 07/25/21 Loc: ED Accession Number: [id number] ?? Procedure: XR chest 1V Ordering Provider: Melissa Meyer D.O. PROCEDURE:? XR CHEST 1V ? INDICATIONS:? afib rvr. ? TECHNIQUE:? One view of the chest was acquired.? ? COMPARISON:? [facility], , XR CHEST 1V, 07/23/2021, 11:49. ? FINDINGS:? ? Surgical changes and devices:? None.? ? Lungs and pleura:? Lungs are clear.? No pleural effusions or pneumothorax.? ? Mediastinum:? Mediastinal contours appear normal.? Heart size is normal.? ? Bones and chest wall:? No suspicious bony lesions.? Overlying soft tissues appear unremarkable.? ? IMPRESSION:? No acute cardiopulmonary abnormality. ? ? Dictated by: Flavio Clark M.D. on 07/25/2021 at 8:25 ? ? Approved by: Flavio Clark M.D. on 07/25/2021 at 8:26?? ECG Data Attestation: I personally reviewed and interpreted this ECG as follows: Prior ECG tracings: available for review Interpretation: AFib with rapid ventricular response rate of 116 QRS of 98 QTC of 472. No acute ST elevation or depression noted. No acute ST changes in comparison is 07/15/2021. EKG2. Sinus rhythm rate of 60 MO 190 QRS of 14. No acute ST elevation depression noted. Patient is back in a sinus rhythm from his prior EKG. MDM Narrative Medical decision making narrative: This is a 66-year-old male who is on anticoagulated with new onset atrial fibrillation with recent visit for chest pain, he has had some increased swelling in his lower extremities he is on multiple medications for hypertension but no history of dyslipidemia, diabetes or heart failure. Patient's BNP has been negative, his chest x-ray has not shown any pulmonary edema. After discussion patient is open to cardioversion and I feel he would be an appropriate candidate. Risk versus benefits was discussed with patient and his family at bedside. Patient CHADS-VASC score is 2. Patient I discussed cardioversion he had spontaneous cardioversion to a sinus rhythm while in the department so this was deferred. Discussed his risk factors and he is open to starting anticoagulation. We also discussed he is on lisinopril, amlodipine but no other medications that would help with rate control so I would change his amlodipine today to diltiazem. Patient feels comfortable with this plan. Discharge Plan Departure Patient Disposition: Home Clinical Impression: Atrial fibrillation with rapid ventricular response Instructions: DI for Atrial Fibrillation Activity Restrictions/Additional Instructions: Follow-up with primary care, see if they can move your appointment sooner date or you can follow-up with cardiology referrals included below. You spontaneously cardioverted back to a sinus rhythm today but you may flipped in in out of rhythm. Your risk score recommend that you be anticoagulated for atrial fibrillation. P lease take blood thinner as prescribed. I would also have you stop your amlodipine and changed to diltiazem today. If you have already taken your amlodipine today start the diltiazem tomorrow. Prescription was sent to [facility] in [place]. Please return for recurrent symptoms, new chest pain, shortness of breath, recurrent episodes of AFib or fast irregular heartbeat, lightheadedness or pass ing out, worsening swelling extremities or other new or concerning symptoms. Prescriptions: New Xarelto 20 mg tablet 20 mg PO DAILY Qty: 30 0RF Rx Instructions: must administer with evening meal diltiazem HCl 180 mg capsule,extended release 24hr 180 mg PO DAILY Qty: 30 0RF lisinopril 30 mg tablet 30 mg PO DAILY Qty: 30 0RF Referrals: Braydon Watson MD [Physician] - Darwin Morgan DO [Primary Care Provider] - Visit Report Forms: Patient Portal/API
[2021-07-25 07:25] LABS: COVID19 -Nasal RAPID Negative (Negative)
--- NOTE | 2021-07-25 07:50 | DI.RAD.S_ITS ---
PROCEDURE: XR CHEST 1V INDICATIONS: afib rvr. TECHNIQUE: One view of the chest was acquired. COMPARISON: [facility], CR, XR CHEST 1V, 07/23/2021, 11:49. FINDINGS: Surgical changes and devices: None. Lungs and pleura: Lungs are clear. No pleural effusions or pneumothorax. Mediastinum: Mediastinal contours appear normal. Heart size is normal. Bones and chest wall: No suspicious bony lesions. Overlying soft tissues appear unremarkable. IMPRESSION: No acute cardiopulmonary abnormality. Dictated by: Flavio Clark M.D. on 07/25/2021 at 8:25 Approved by: Flavio Clark M.D. on 07/25/2021 at 8:26
--- NOTE | 2021-07-25 09:05 | PC.NURSE ---
pt self converted. ekg confirmed normal sinus rythm
[2021-07-25] MEDS: RIVAROXABAN 10 MG TABLET 20 MG PO (10:07)
== END 2021-07-25 10:24 | disposition home or self-care (01) ==
PROVIDERS: Emergency Medicine; Emergency Provider Emergency Medicine; PCP Family Medicine
DX: I48.91 Unspecified atrial fibrillation (principal); Z20.822 Contact with and (suspected) exposure to COVID-19; Z79.01 Long term (current) use of anticoagulants
CPT/HCPCS: 36415; 71045; 80053; 82550; 82553; 83690; 83735; 84484; 85025; 85610; 85730; 87635; 92960; 93005; 93010; 99285; C9803

== ENCOUNTER 2021-08-24 09:03 | Emergency (ER) | payer MEDICARE, SELFPAY ==
[2021-08-24] VITALS (24 sets, daily range): BP systolic 99–145; BP diastolic 64–116; PULSE 77–151; RESP 12–23; TEMP 36.7; O2SAT 91–99; BMI 29.8
--- NOTE | 2021-08-24 09:20 | DI.RAD.S_ITS ---
PROCEDURE: XR CHEST 1V INDICATIONS: chest pain TECHNIQUE: One view of the chest was acquired. COMPARISON: [facility], , XR CHEST 1V, 07/23/2021, 11:49. [facility], CR, XR CHEST 1V, 07/25/2021, 8:00. FINDINGS: Surgical changes and devices: None. Lungs and pleura: Lungs are clear. No pleural effusions or pneumothorax. Mediastinum: Mediastinal contours appear normal. Heart size is normal. Bones and chest wall: No suspicious bony lesions. Overlying soft tissues appear unremarkable. IMPRESSION: No acute cardiopulmonary abnormality. Dictated by: Flavio Clark M.D. on 08/24/2021 at 9:32 Approved by: Flavio Clark M.D. on 08/24/2021 at 9:33
--- NOTE | 2021-08-24 09:24 | ED_ITS ---
HPI - Chest Pain General Chief Complaint: Arrhythmia/Palpitations Stated Complaint: high blood pressure/heart rate Time Seen by Provider: 08/24/21 09:24 History of Present Illness HPI narrative: Patient is a 66-year-old male with new onset of atrial fibrillation. He actually was diagnosed on July 25. Since then he has been seen by Cardiology he got started on Xarelto and diltiazem. He states he has not yet had an echocardiogram. This morning he woke up and started fever and feeling fluttering in his chest. Heart rate is currently 150. He denies any shortness of breath. Previously cardioverted on his own. He said he was feeling in his normal state of health yesterday. Related Data Previous Rx's Medication Instructions Recorded diltiazem HCl 180 mg 180 mg PO DAILY #90 caps 07/29/21 capsule,extended release 24 hr fluoxetine 20 mg capsule 20 mg PO DAILY #90 caps 07/29/21 furosemide 20 mg tablet 20 mg PO DAILY #90 tabs 07/29/21 lisinopril 30 mg tablet 30 mg PO DAILY #90 tabs 07/29/21 nitroglycerin 0.4 mg sublingual 0.4 mg sublingual Q5M PRN chest 08/03/21 tablet pain #20 tabs rivaroxaban 20 mg tablet (Xarelto) 20 mg PO DAILY #90 tabs 08/18/21 metoprolol succinate 25 mg capsule 25 mg PO DAILY #30 ea 08/24/21 sprinkle, ext. release 24 hr Allergies Allergy/AdvReac Type Severity Reaction Status Date / Time No Known Drug Allergies Allergy Verified 07/23/21 11:33 Review of Systems Review of Systems Narrative: GENERAL: Denies chills, fatigue, malaise, fever, sweats, travel HEENT: Denies sinus pain, ear pain, sore throat, difficulty swallowing, neck pain RESPIRATORY: Denies dyspnea, cough, wheezing, hemoptysis, sputum. CARDIOVASCULAR: see HPI GASTROINTESTINAL: Denies nausea, vomiting, abdominal pain, diarrhea, constipation, melena. : Denies dysuria, frequency, incontinence, hematuria, urinary retention, flank pain. MUSCULOSKELETAL: Denies weakness, joint pain, or bony pain SKIN: No rash, no erythema, no pruritus NEUROLOGIC: Denies weakness, dizziness, headache, numbness, change in speech, confusion PSYCHIATRIC: No concerning psychosocial issues. 12 point review of systems is negative except for those stated above and HPI Patient History Medical History (Updated 08/24/21 @ 11:32 by Rosey Lieberman DO) Anxiety Hypertension Social History Smoking Status: Former smoker Smoking Status: Former smoker alcohol intake frequency: holidays/special occasions only Substance Use Type: does not use Exam Initial Vital Signs Initial Vital Signs: Vital Signs Temperature 98.1 F 08/24/21 09:05 Pulse Rate 150 H 08/24/21 09:05 Respiratory Rate 20 08/24/21 09:05 Blood Pressure 136/88 08/24/21 09:05 Pulse Oximetry 99 08/24/21 09:05 Oxygen Delivery Method 08/24/21 09:05 GENERAL: Alert pleasant 66-year-old male and in no acute distress. HEENT: Head atraumatic,EOMI, pupils reactive, face symmetric, moist mucous membranes CARDIOVASCULAR: Irregularly irregular tachycardic RESPIRATORY: Breath sounds equal bilaterally, no wheezes rales or rhonchi. ABDOMEN: Soft, nontender. Normoactive bowel sounds all 4 quadrants. No gu arding or rebound. EXTREMITIES: Normal range of motion, no clubbing or edema. Neurovascularly intact NEUROLOGICAL: Alert and oriented x4.Normal gait and speech. SKIN: Warm, dry, no laceration, no petechiae, no rashes or lesions. Course Orders Ordered: ED Orders 08/24/21 09:11 BNP [NT-proBNP (BNP-Adult 18+)] Stat COVID19 -Nasal RAPID/Pre-Proc Stat Complete Blood Count AUTO DIFF Stat Comprehensive Metabolic Panel Stat Lipase Stat Magnesium Stat Troponin & CK Cardiac Panel Stat 08/24/21 09:20 XR chest 1V Stat Discontinued Medications Diltiazem HCl (Diltiazem 30 Mg Tablet) 60 mg PO NOW ONE Stop: 08/24/21 10:25 Last Admin: 08/24/21 10:51 Dose: 60 mg Documented By: AMU Sodium Chloride (Normal Saline 0.9%) 1,000 mls @ 1,000 mls/hr IV BOLUS ONE Stop: 08/24/21 10:49 Last Infusion: 08/24/21 11:22 Dose: 0 mls/hr Documented By: Admin: 08/24/21 09:51 Dose: 1,000 mls/hr Documented By: KARL Metoprolol Succinate (Metoprolol Er 25 Mg Tablet) 25 mg PO NOW ONE Stop: 08/24/21 11:46 Last Admin: 08/24/21 11:59 Dose: 25 mg Documented By: TED Metoprolol Tartrate (Metoprolol Tartrate 5 Mg/5 Ml Inj) 5 mg IV NOW ONE Stop: 08/24/21 09:40 Last Admin: 08/24/21 10:52 Dose: Not Given Documented By: KARL Vital Signs Vital signs: Vital Signs - 8 hr 08/24/21 09:59 08/24/21 09:59 08/24/21 10:00 Pulse Rate 82 111 H Respiratory Rate 20 23 Blood Pressure 126/84 Pulse Oximetry 98 98 08/24/21 10:01 08/24/21 10:01 08/24/21 10:15 Pulse Rate 78 Respiratory Rate 15 Blood Pressure 111/76 119/76 Pulse Oximetry 97 08/24/21 10:15 08/24/21 10:30 08/24/21 10:30 Pulse Rate 84 77 Respiratory Rate 18 16 Blood Pressure 143/99 H Pulse Oximetry 98 98 08/24/21 10:45 08/24/21 10:45 08/24/21 10:51 Pulse Rate 79 78 Respiratory Rate 12 Blood Pressure 113/78 113/78 Pulse Oximetry 98 08/24/21 11:59 08/24/21 11:00 08/24/21 11:00 Pulse Rate 85 79 Respiratory Rate 12 Blood Pressure 122/89 121/90 Pulse Oximetry 93 08/24/21 11:15 08/24/21 11:15 08/24/21 11:30 Pulse Rate 78 81 Respiratory Rate 13 13 Blood Pressure 122/82 Pulse Oximetry 97 91 08/24/21 11:33 08/24/21 11:33 08/24/21 11:45 Pulse Rate 94 H Respiratory Rate 15 Blood Pressure 114/86 122/89 Pulse Oximetry 98 08/24/21 11:45 08/24/21 12:00 08/24/21 12:01 Pulse Rate 79 109 H 100 H Respiratory Rate 23 23 16 Blood Pressure Pulse Oximetry 97 97 99 08/24/21 12:01 08/24/21 12:28 08/24/21 12:15 Pulse Rate 88 Respiratory Rate Blood Pressure 145/116 H 125/88 125/88 Pulse Oximetry 08/24/21 12:15 Pulse Rate 79 Respiratory Rate 12 Blood Pressure Pulse Oximetry 96 MDM - Chest Pain Lab Data Result diagrams: 08/24/21 09:11 08/24/21 09:11 Labs: Lab Results 08/24/21 08/24/21 08/24/21 Range/Units 09:11 09:11 09:11 WBC 5.8 (4.5-11.0) X10^3/uL RBC 4.48 L (4.5-5.9) X10^6/uL Hgb 14.1 (13.5-17.5) g/dL Hct 40.1 L (41-53) % MCV 89.3 (80-100) fL MCH 31.4 (26-34) PG MCHC 35.1 (30-36) % RDW 13.3 (11.6-14.8) % Plt Count 202 (150-400) X10^3/uL Neut % (Auto) 67.1 (50-75) % Lymph % (Auto) 17.7 L (25-40) % [place] % (Auto) 12.5 (3-14) % Eos % (Auto) 1.5 L (2-4) % Baso % (Auto) 1.2 (0-2) % Neut # (Auto) 3900 (3226-2666) /uL Lymph # (Auto) 1000 L (8774-3565) /uL [place] # (Auto) 700 (0-900) /uL Eos # (Auto) 100 (0-450) /uL Baso # (Auto) 100 (0-100) /uL Sodium 142 (137-145) mmol/L Potassium 4.0 (3.4-5.1) mmol/L Chloride 107 (98-107) mmol/L Carbon Dioxide 26 (22-32) mmol/L BUN 16 (9-20) mg/dL Creatinine 1.19 (0.66-1.25) mg/dL Estimated GFR > 60 (>60) mL/min BUN/Creatinine Ratio 13.4 (6-22) Glucose 111 H (80-110) mg/dL Calcium 8.9 (8.4-10.2) mg/dL Magnesium 2.1 (1.6-2.3) mg/dL Total Bilirubin 0.9 (0.2-1.3) mg/dL AST 27 (17-59) IU/L ALT 19 (<50) IU/L Alkaline Phosphatase 76 (38-126) U/L Total Creatine Kinase 159 (55-170) U/L CK-MB (CK-2) 3.15 H (<2.37) ng/mL CK-MB (CK-2) Rel Index 2.0 (1.5-5.0) % Troponin I 0.064 H (0.01-0.034) ng/mL NT-Pro-B Natriuret Pep (<125) pg/mL Total Protein 7.5 (6.3-8.2) g/dL Albumin 4.5 (3.5-5.0) g/dL Globulin 3.0 (1.7-4.1) g/dL Albumin/Globulin Ratio 1.5 (1.0-2.8) Lipase 69 (23-300) U/L SARS-CoV-2 (PCR) Negative (Negative) 08/24/21 Range/Units 09:11 WBC (4.5-11.0) X10^3/uL RBC (4.5-5.9) X10^6/uL Hgb (13.5-17.5) g/dL Hct (41-53) % MCV (80-100) fL MCH (26-34) PG MCHC (30-36) % RDW (11.6-14.8) % Plt Count (150-400) X10^3/uL Neut % (Auto) (50-75) % Lymph % (Auto) (25-40) % [place] % (Auto) (3-14) % Eos % (Auto) (2-4) % Baso % (Auto) (0-2) % Neut # (Auto) (4185-6490) /uL Lymph # (Auto) (2577-7707) /uL [place] # (Auto) (0-900) /uL Eos # (Auto) (0-450) /uL Baso # (Auto) (0-100) /uL Sodium (137-145) mmol/L Potassium (3.4-5.1) mmol/L Chloride (98-107) mmol/L Carbon Dioxide (22-32) mmol/L BUN (9-20) mg/dL Creatinine (0.66-1.25) mg/dL Estimated GFR (>60) mL/min BUN/Creatinine Ratio (6-22) Glucose (80-110) mg/dL Calcium (8.4-10.2) mg/dL Magnesium (1.6-2.3) mg/dL Total Bilirubin (0.2-1.3) mg/dL AST (17-59) IU/L ALT (<50) IU/L Alkaline Phosphatase (38-126) U/L Total Creatine Kinase (55-170) U/L CK-MB (CK-2) (<2.37) ng/mL CK-MB (CK-2) Rel Index (1.5-5.0) % Troponin I (0.01-0.034) ng/mL NT-Pro-B Natriuret Pep 831 H (<125) pg/mL Total Protein (6.3-8.2) g/dL Albumin (3.5-5.0) g/dL Globulin (1.7-4.1) g/dL Albumin/Globulin Ratio (1.0-2.8) Lipase (23-300) U/L SARS-CoV-2 (PCR) (Negative) Imaging Data Chest x-ray: Radiologist's Impression: XRay Report Signed Patient: Govind Gillespie MR#: [id number] : 1955 Acct:[id number] Age/Sex: 66 / M Date of Service: 08/24/21 Loc: Accession Number: [id number] ?? Procedure: XR chest 1V Ordering Provider: Rosey Lieberman D.O. PROCEDURE:? XR CHEST 1V ? INDICATIONS:? chest pain ? TECHNIQUE:? One view of the chest was acquired.? ? COMPARISON:? [facility], CR, XR CHEST 1V, 07/23/2021, 11:49.? [facility], , XR CHEST 1V, 07/25/2021, 8:00. ? FINDINGS:? ? Surgical changes and devices:? None.? ? Lungs and pleura:? Lungs are clear.? No pleural effusions or pneumothorax.? ? Mediastinum:? Mediastinal contours appear normal.? Heart size is normal.? ? Bones and chest wall:? No suspicious bony lesions.? Overlying soft tissues appear unremarkable.? ? IMPRESSION:? No acute cardiopulmonary abnormality. ? ? Dictated by: Flavio Clark M.D. on 08/24/2021 at 9:32 ? ? ECG Data Interpretation: Atrial flutter rate 150 2-[address] change EKG 2 atrial flutter rate 84 MDM Narrative Medical decision making narrative: It has onset paroxysmal atrial flutter atrial fibrillation. He was started on Xarelto he said he finished 1 month's worth, he was started on it from the emergency department on July 25, roughly on Xarelto for 3-4 weeks without an echocardiogram that I see. Patient's heart rate spontaneously slowed to well below 100 he is completely asymptomatic at this time. Difficult to tell when he went into atrial flutter, he seems to only notices it when it was fast. Patient is really completely asymptomatic unless have his heart rate is fast. He is on Xarelto but really has not been on Xarelto for more than 3 weeks. Cardiology did state at could cardiovert if needed his. However patient was hesitant to do so because he was asymptomatic with the heart rate under 100. I agree is. His cardiology also recommended adding metoprolol 25 mg ER to help with rate control Discharge Plan Departure Patient Disposition: Home Clinical Impression: Atrial fibrillation Instructions: DI for Atrial Flutter Activity Restrictions/Additional Instructions: *You have been diagnosed with atrial flutter *What to do: Atrial flutter please monitor your heart rate. At this time we decided not to cardiovert her symptoms were very minimal however please monitor your heart rate and command it is faster than 120 over 1-2 hours *Continue to take medications as directed Start taking metoprolol 25 mg once daily in addition to your other medications *Follow up with your primary care provider in 2-3 days or call [phone] *Return to ER if you should have increasing heart rate chest pain palpitations dizziness or any new, worsening or concerning symptoms Prescriptions: New metoprolol succinate 25 mg capsule,sprinkle,ER 24hr 25 mg PO DAILY Qty: 30 0RF No Action furosemide 20 mg tablet 20 mg PO DAILY Qty: 90 1RF diltiazem HCl 180 mg capsule,extended release 24hr 180 mg PO DAILY Qty: 90 1RF lisinopril 30 mg tablet 30 mg PO DAILY Qty: 90 1RF nitroglycerin 0.4 mg tablet, sublingual 0.4 mg sublingual Q5M PRN (Reason: chest pain) Qty: 20 1RF Rx Instructions: do not exceed 3 doses per episode Xarelto 20 mg tablet 20 mg PO DAILY Qty: 90 1RF Rx Instructions: must administer with evening meal fluoxetine 20 mg capsule 20 mg PO DAILY Qty: 90 1RF Referrals: Turner Mcgregor DO [Primary Care Provider] - Visit Report Forms: Patient Portal/API
[2021-08-24 09:31] LABS: Add Manual Diff / Slide Review NO; Basophils Absolute Auto 100 /uL (0-100); Basophils Percent Auto 1.2 % (0-2); Eosinophils Absolute Auto 100 /uL (0-450); Eosinophils Percent Auto 1.5 % (2-4); Hematocrit 40.1 % (41-53); Hemoglobin 14.1 g/dL (13.5-17.5); Lymphocytes Absolute Auto 1000 /uL (1100-4500); Lymphocytes Percent Auto 17.7 % (25-40); Mean Corpuscular HGB Conc 35.1 % (30-36); Mean Corpuscular Hemoglobin 31.4 PG (26-34); Mean Corpuscular Volume 89.3 fL (80-100); Monocytes Absolute Auto 700 /uL (0-900); Monocytes Percent Auto 12.5 % (3-14); Neutrophils Absolute Auto 3900 /uL (1500-7000); Neutrophils Percent Auto 67.1 % (50-75); Platelet Count 202 X10^3/uL (150-400); Red Blood Cell Count 4.48 X10^6/uL (4.5-5.9); Red Cell Distribution Width 13.3 % (11.6-14.8); White Blood Cell Count 5.8 X10^3/uL (4.5-11.0)
[2021-08-24 09:36] LABS: Alanine Aminotransferase 19 IU/L (<50); Albumin 4.5 g/dL (3.5-5.0); Albumin Globulin Ratio 1.5 (1.0-2.8); Alkaline Phosphatase 76 U/L (38-126); Aspartate Aminotransferase 27 IU/L (17-59); BUN Creatinine Ratio 13.4 (6-22); Bilirubin Total 0.9 mg/dL (0.2-1.3); Blood Urea Nitrogen 16 mg/dL (9-20); Calcium 8.9 mg/dL (8.4-10.2); Carbon Dioxide 26 mmol/L (22-32); Chloride 107 mmol/L (98-107); Creatine Kinase 159 U/L (55-170); Estimated Glomerular Filt Rate > 60 mL/min (>60); Glucose 111 mg/dL (80-110); HEMOLYSIS < 15 (0-50); Lipase 69 U/L (23-300); Magnesium 2.1 mg/dL (1.6-2.3); Sodium 142 mmol/L (137-145); Total Protein 7.5 g/dL (6.3-8.2)
[2021-08-24 09:45] LABS: COVID19 -Nasal RAPID Negative (Negative)
[2021-08-24 09:46] LABS: Troponin I 0.064 ng/mL (0.01-0.034)
[2021-08-24 09:50] LABS: Creatine Kinase MB 3.15 ng/mL (<2.37)
[2021-08-24] MEDS: SODIUM CHLORIDE 0.9% 1,000 ML 1000 ML IV (09:51)
[2021-08-24 10:37] LABS: NT-proBNP (BNP-Adult 18+) 831 pg/mL (<125)
[2021-08-24] MEDS: dilTIAZem 30 MG TABLET 60 MG PO (10:51)
[2021-08-24] MEDS: METOPROLOL ER 25 MG TABLET PO (11:59)
== END 2021-08-24 12:29 | disposition home or self-care (01) ==
PROVIDERS: Emergency Provider Emergency Medicine; PCP Family Medicine
DX: I48.91 Unspecified atrial fibrillation (principal); Z79.01 Long term (current) use of anticoagulants; Z20.822 Contact with and (suspected) exposure to COVID-19
CPT/HCPCS: 36415; 71045; 80053; 82550; 82553; 83690; 83735; 83880; 84484; 85025; 87635; 93005; 93010; 96360; 96361; 99284; C9803

== ENCOUNTER → 2021-09-02 08:53 | Outpatient (CLI) | payer MEDICARE, SELFPAY ==
[2021-09-02 10:03] LABS: Cholesterol 146 mg/dL (140-199); HDL Cholesterol 28 mg/dL (40-60); LDL Cholesterol Calculated 99 mg/dL (<100); Triglycerides 94 mg/dL (35-150)
[2021-09-02 10:29] LABS: Thyroid Stimulating Hormone 0.785 uIU/mL (0.47-4.68)
[2021-09-02 14:20] LABS: COVID19 -Nasal RAPID POSITIVE (Negative)
== END ==
PROVIDERS: Physician Assistant; PCP Family Medicine; Referring Provider Nurse Practitioner Family; Visit Provider Nurse Practitioner Family
DX: I48.0 Paroxysmal atrial fibrillation (principal); I10 Essential (primary) hypertension; R00.2 Palpitations; U07.1 COVID-19
CPT/HCPCS: 80061; 84443; 87635

== ENCOUNTER → 2021-09-14 09:58 | Outpatient (CLI) | payer MEDICARE, SELFPAY ==
[2021-09-14 10:42] LABS: COVID19 -Nasal RAPID POSITIVE (Negative)
== END ==
PROVIDERS: PCP Family Medicine; Referring Provider Nurse Practitioner Family; Visit Provider Nurse Practitioner Family
DX: U07.1 COVID-19 (principal); I48.0 Paroxysmal atrial fibrillation; R07.89 Other chest pain
CPT/HCPCS: 87635

== ENCOUNTER 2021-11-18 11:40 | Emergency (ER) | payer MEDICARE, SELFPAY ==
[2021-11-18] VITALS (19 sets, daily range): BP systolic 101–130; BP diastolic 76–95; PULSE 50–152; RESP 11–35; TEMP 36.6; O2SAT 93–99; BMI 29.9
--- NOTE | 2021-11-18 11:47 | DI.RAD.S_ITS ---
PROCEDURE: XR CHEST 1V INDICATIONS: chest pain TECHNIQUE: One view of the chest was acquired. COMPARISON: [facility], CR, XR CHEST 1V, 08/24/2021, 9:19. FINDINGS: Surgical changes and devices: None. Lungs and pleura: Lungs are clear. No pleural effusions or pneumothorax. Mediastinum: Mediastinal contours appear normal. Heart size is normal. Bones and chest wall: No suspicious bony lesions. Overlying soft tissues appear unremarkable. IMPRESSION: No acute pulmonary process. Dictated by: Madelyn Giles M.D. on 11/18/2021 at 12:27 Approved by: Madelyn Giles M.D. on 11/18/2021 at 12:28
--- NOTE | 2021-11-18 11:52 | ED.ARRPALP ---
HPI - Arrhythmia/Palpitations General Chief Complaint: Arrhythmia/Palpitations Stated Complaint: AFIB x 2 days Time Seen by Provider: 11/18/21 11:51 Source: patient Mode of arrival: Ambulatory History of Present Illness HPI narrative: The patient was diagnosed with atrial fib May 2021. He is in and out of AFib, resulting in multiple ER visits. He developed tachycardia yesterday. He has no chest pain, no palpitations, no dyspnea. He denies orthopnea or peripheral edema. He does feel a little winded when up walking only. He has no history [place]. he is compliant with medications. He is anticoagulated with Xarelto. He denies recent illness. Denies URI symptoms, headache, sore throat. He has no cough, no dyspnea wrist. His no GI symptoms. He has no peripheral edema. Related Data Previous Rx's Medication Instructions Recorded diltiazem HCl 180 mg 180 mg PO DAILY #90 caps 07/29/21 capsule,extended release 24 hr fluoxetine 20 mg capsule 20 mg PO DAILY #90 caps 07/29/21 furosemide 20 mg tablet 20 mg PO DAILY #90 tabs 07/29/21 lisinopril 30 mg tablet 30 mg PO DAILY #90 tabs 07/29/21 nitroglycerin 0.4 mg sublingual 0.4 mg sublingual Q5M PRN chest 08/03/21 tablet pain #20 tabs rivaroxaban 20 mg tablet (Xarelto) 20 mg PO DAILY #90 tabs 08/18/21 metoprolol succinate 25 mg capsule 25 mg PO DAILY #30 ea 08/24/21 sprinkle, ext. release 24 hr omeprazole 20 mg capsule,delayed 20 mg PO DAILY #90 caps 10/10/21 release Allergies Allergy/AdvReac Type Severity Reaction Status Date / Time No Known Drug Allergies Allergy Verified 11/18/21 11:45 Review of Systems Review of Systems ROS Unobtainable: All systems reviewed & are unremarkable except as noted in HPI and below Constitutional Constitutional: Denies body ache(s), Denies chills, Denies fatigue and Denies fever(s) Eyes Eyes: Denies change in vision ENT Ears, Nose, Mouth, and Throat: Denies dizziness, Denies mouth pain and Denies sore throat Cardiovascular Cardiovascular: Denies chest pain, Denies syncope, Denies pedal edema, Denies edema, Reports irregular heart rhythm, Denies leg edema, Denies lightheadedness and Denies dyspnea Respiratory Respiratory: Denies cough and Denies dyspnea Gastrointestinal Gastrointestinal: Denies abdominal pain, Denies nausea and Denies vomiting Genitourinary Genitourinary: Denies dysuria Musculoskeletal Musculoskeletal: Denies arthralgias, Denies back pain and Reports other (No lower extremity pain) Integumentary/Breasts Skin/Breast: Denies lesions and Denies rash Neurologic Neurologic: Denies confusion, Denies dizziness and Denies syncope Psychiatric Psychiatric: Denies confusion Endocrine Endocrine: Denies fatigue Hematologic/Lymphatic On Anticoagulants: Yes Patient History Medical History Anxiety Chronic atrial fibrillation Chronic low back pain Hypertension Obstructive sleep apnea Well adult exam Family History Mother No problems noted. Father Cancer Sister No problems noted. Social History Smoking Status: Former smoker Smoking Status: Former smoker alcohol intake frequency: holidays/special occasions only Substance Use Type: does not use Exam Initial Vital Signs Initial Vital Signs: Vital Signs Temperature 97.8 F 11/18/21 11:40 Pulse Rate 152 H 11/18/21 11:40 Respiratory Rate 16 11/18/21 11:40 Blood Pressure 130/82 11/18/21 11:40 Pulse Oximetry 98 11/18/21 11:40 Oxygen Delivery Method 11/18/21 11:40 Const General: cooperative and healthy appearing Orientation: Orientation (Normal) [facility] Head: normocephalic and atraumatic Mouth: oral mucosae normal and moist mucous membranes Eyes General: Yes appearance normal, both eyes and all related structures Pupils: PERRL EOM: EOM intact bilaterally Neck Neck: No JVD Lymphatic: lymphedema Chest Chest: normal inspection of the chest Resp Effort & Inspection: no cough Auscultation: clear to auscultation bilaterally Cardio Rate: regular rate Rhythm: regular rhythm Heart Sounds: S1 normal and S2 normal GI Inspection: normal to inspection Percussion: normal to percussion Back/Spine/Pelvis Back: normal to inspection Skin General: no rashes or lesions noted Neuro General: patient alert, patient awake, patient oriented x3 and no focal motor deficits Extrem General: normal to inspection, no pedal edema and no calf tenderness Psych Appearance: grossly normal Course Course Course Narrative: Patient received Cardizem 20 mg IV. His right rate improved from 140-150 to 80s. He remained in AFib/a flutter. A brief time later he converted to sinus [place], rate 50s. There was about a 2nd sinus pause as he converted. He felt a brief tightness in his chest, no weakness or near syncope. He feels well after conversion. I contacted his au pair, Dr. Betancur. The patient takes diltiazem 180 mg extended release as well as metoprolol 25 mg as needed. The patient is advised to take the metoprolol daily. Consultation with with Dr. Hodge is sought for potential ablation. No appointment has been obtained. Dr. Betancur while will intervene to move forward with the appointment. Orders Ordered: ED Orders 11/18/21 11:47 XR chest 1V Stat EKG-12 Lead Stat 11/18/21 11:48 COVID19 -Nasal RAPID/Pre-Proc Stat 11/18/21 12:15 Complete Blood Count AUTO DIFF Stat Comprehensive Metabolic Panel Stat Lipase Stat Magnesium Stat Partial Thromboplastin Time Stat Prothrombin Time INR Stat Troponin & CK Cardiac Panel Stat 11/18/21 13:45 EKG-12 Lead Stat Sodium Chloride (Normal Saline 0.9%) 1,000 mls @ 150 mls/hr IV CONT ASAEL Last Infusion: 11/18/21 14:08 Dose: 0 mls/hr Documented By: Infusion: 11/18/21 13:04 Dose: 1,000 mls/hr Documented By: Admin: 11/18/21 12:22 Dose: 150 mls/hr Documented By: CTS Discontinued Medications Diltiazem HCl (Diltiazem 5 Mg/Ml Sdv) 20 mg IV NOW ONE Stop: 11/18/21 12:01 Last Admin: 11/18/21 12:21 Dose: 20 mg Documented By: CTS Vital Signs Vital signs: Vital Signs - 8 hr 11/18/21 11:40 11/18/21 12:21 11/18/21 11:52 Temperature 97.8 F Pulse Rate 152 H 150 H Respiratory Rate 16 Blood Pressure 130/82 129/86 Pulse Oximetry 98 Oxygen Delivery Method Room Air 11/18/21 11:52 11/18/21 12:00 11/18/21 12:23 Temperature Pulse Rate 50 L 151 H 150 H Respiratory Rate 35 H 29 H Blood Pressure Pulse Oximetry 93 99 97 Oxygen Delivery Method 11/18/21 12:23 11/18/21 12:30 11/18/21 12:31 Temperature Pulse Rate 78 Respiratory Rate 29 H Blood Pressure 101/76 113/87 Pulse Oximetry 97 Oxygen Delivery Method 11/18/21 12:31 11/18/21 13:00 11/18/21 13:00 Temperature Pulse Rate 78 81 Respiratory Rate 34 H 16 Blood Pressure 115/87 Pulse Oximetry 96 98 Oxygen Delivery Method 11/18/21 13:30 11/18/21 13:30 11/18/21 13:38 Temperature Pulse Rate 82 50 L Respiratory Rate 11 L 23 Blood Pressure 115/89 Pulse Oximetry 96 97 Oxygen Delivery Method Room Air 11/18/21 13:38 11/18/21 13:45 11/18/21 13:45 Temperature Pulse Rate 55 L Respiratory Rate 16 Blood Pressure 121/95 H 120/91 H Pulse Oximetry 99 Oxygen Delivery Method 11/18/21 14:00 11/18/21 14:00 11/18/21 14:15 Temperature Pulse Rate 63 Respiratory Rate 26 H Blood Pressure 127/90 110/80 Pulse Oximetry 96 Oxygen Delivery Method Room Air 11/18/21 14:15 11/18/21 14:30 11/18/21 14:30 Temperature Pulse Rate 62 63 Respiratory Rate 16 12 Blood Pressure 108/79 Pulse Oximetry 94 93 Oxygen Delivery Method Room Air 11/18/21 14:45 11/18/21 14:45 11/18/21 15:00 Temperature Pulse Rate 61 66 Respiratory Rate 12 Blood Pressure 114/76 Pulse Oximetry 96 97 Oxygen Delivery Method Room Air 11/18/21 15:01 11/18/21 15:01 Temperature Pulse Rate 68 Respiratory Rate Blood Pressure 127/89 Pulse Oximetry 97 Oxygen Delivery Method MDM - Arrhythmia/Palpitations Lab Data Result diagrams: 11/18/21 12:15 11/18/21 12:15 Labs: Lab Results 11/18/21 11/18/21 11/18/21 Range/Units 11:48 12:15 12:15 WBC 7.6 (4.5-11.0) X10^3/uL RBC 4.53 (4.5-5.9) X10^6/uL Hgb 13.8 (13.5-17.5) g/dL Hct 40.4 L (41-53) % MCV 89.3 (80-100) fL MCH 30.6 (26-34) PG MCHC 34.2 (30-36) % RDW 13.6 (11.6-14.8) % Plt Count 265 (150-400) X10^3/uL Neut % (Auto) 66.6 (50-75) % Lymph % (Auto) 20.1 L (25-40) % [place] % (Auto) 10.3 (3-14) % Eos % (Auto) 1.9 L (2-4) % Baso % (Auto) 1.1 (0-2) % Neut # (Auto) 5100 (3421-5909) /uL Lymph # (Auto) 1500 (8304-8187) /uL [place] # (Auto) 800 (0-900) /uL Eos # (Auto) 100 (0-450) /uL Baso # (Auto) 100 (0-100) /uL PT 18.4 H (10.1-12.7) SECONDS INR 1.6 H (0.9-1.3) APTT 37 H (26-36) SECONDS Sodium (137-145) mmol/L Potassium (3.4-5.1) mmol/L Chloride (98-107) mmol/L Carbon Dioxide (22-32) mmol/L BUN (9-20) mg/dL Creatinine (0.66-1.25) mg/dL Estimated GFR (>60) mL/min BUN/Creatinine Ratio (6-22) Glucose (80-110) mg/dL Calcium (8.4-10.2) mg/dL Magnesium (1.6-2.3) mg/dL Total Bilirubin (0.2-1.3) mg/dL AST (17-59) IU/L ALT (<50) IU/L Alkaline Phosphatase (38-126) U/L Total Creatine Kinase (55-170) U/L CK-MB (CK-2) CK-MB (CK-2) Rel Index Troponin I (0.01-0.034) ng/mL Total Protein (6.3-8.2) g/dL Albumin (3.5-5.0) g/dL Globulin (1.7-4.1) g/dL Albumin/Globulin Ratio (1.0-2.8) Lipase (23-300) U/L SARS-CoV-2 (PCR) Negative (Negative) 11/18/21 Range/Units 12:15 WBC (4.5-11.0) X10^3/uL RBC (4.5-5.9) X10^6/uL Hgb (13.5-17.5) g/dL Hct (41-53) % MCV (80-100) fL MCH (26-34) PG MCHC (30-36) % RDW (11.6-14.8) % Plt Count (150-400) X10^3/uL Neut % (Auto) (50-75) % Lymph % (Auto) (25-40) % [place] % (Auto) (3-14) % Eos % (Auto) (2-4) % Baso % (Auto) (0-2) % Neut # (Auto) (6729-4101) /uL Lymph # (Auto) (9626-9952) /uL [place] # (Auto) (0-900) /uL Eos # (Auto) (0-450) /uL Baso # (Auto) (0-100) /uL PT (10.1-12.7) SECONDS INR (0.9-1.3) APTT (26-36) SECONDS Sodium 140 (137-145) mmol/L Potassium 4.3 (3.4-5.1) mmol/L Chloride 107 (98-107) mmol/L Carbon Dioxide 23 (22-32) mmol/L BUN 20 (9-20) mg/dL Creatinine 1.18 (0.66-1.25) mg/dL Estimated GFR > 60 (>60) mL/min BUN/Creatinine Ratio 16.9 (6-22) Glucose 105 (80-110) mg/dL Calcium 9.0 (8.4-10.2) mg/dL Magnesium 1.8 (1.6-2.3) mg/dL Total Bilirubin 0.5 (0.2-1.3) mg/dL AST 24 (17-59) IU/L ALT 17 (<50) IU/L Alkaline Phosphatase 77 (38-126) U/L Total Creatine Kinase 99 (55-170) U/L CK-MB (CK-2) TNP CK-MB (CK-2) Rel Index TNP Troponin I 0.022 (0.01-0.034) ng/mL Total Protein 7.4 (6.3-8.2) g/dL Albumin 4.2 (3.5-5.0) g/dL Globulin 3.2 (1.7-4.1) g/dL Albumin/Globulin Ratio 1.3 (1.0-2.8) Lipase 69 (23-300) U/L SARS-CoV-2 (PCR) (Negative) Imaging Data Chest x-ray: Radiologist's Impresson: Normal ECG Data Attestation: I personally reviewed and interpreted this ECG as follows: (EKG 1.: A flutter rate 150s. EKG 2.: A flutter with 4-1 block. Left axis deviation. Rate 80 beats per minute. No acute ST elevations. EKG 3. Sinus bradycardia rate 54 beats per minute. RBBB. No ectopy. No acute ST T wave changes.) Discharge Plan Departure Patient Disposition: Home Clinical Impression: AF (paroxysmal atrial fibrillation) Instructions: DI for Atrial Fibrillation Activity Restrictions/Additional Instructions: Continue your current medications. Metoprolol 25 mg daily. This is now a regular medication. Seek follow-up with Dr. Betancur, and/or Dr. Hodge. Return here as needed. Prescriptions: No Action furosemide 20 mg tablet 20 mg PO DAILY Qty: 90 1RF diltiazem HCl 180 mg capsule,extended release 24hr 180 mg PO DAILY Qty: 90 1RF lisinopril 30 mg tablet 30 mg PO DAILY Qty: 90 1RF nitroglycerin 0.4 mg tablet, sublingual 0.4 mg sublingual Q5M PRN (Reason: chest pain) Qty: 20 1RF Rx Instructions: do not exceed 3 doses per episode Xarelto 20 mg tablet 20 mg PO DAILY Qty: 90 1RF Rx Instructions: must administer with evening meal fluoxetine 20 mg capsule 20 mg PO DAILY Qty: 90 1RF omeprazole 20 mg capsule,delayed release(DR/EC) 20 mg PO DAILY Qty: 90 1RF metoprolol succinate 25 mg capsule,sprinkle,ER 24hr 25 mg PO DAILY Qty: 30 0RF Referrals: Turner Mcgregor, DO [Primary Care Provider] -
[2021-11-18 12:19] LABS: COVID19 -Nasal RAPID Negative (Negative)
[2021-11-18] MEDS: dilTIAZem 5 MG/ML SDV 20 MG IV (12:21)
[2021-11-18] MEDS: SODIUM CHLORIDE 0.9% 1,000 ML 150 ML IV (12:22)
--- NOTE | 2021-11-18 12:31 | PC.NURSE ---
Pt is Afib 150's. Asymptomatic. cardizem 20mg given per MAR. pt HR slowed within 5 min. Appears to be in aflutter 80-90's. RT called for repeat EKG. Dr Bolaños aware. Pt remains asymptomatic.
[2021-11-18 12:34] LABS: Add Manual Diff / Slide Review NO; Basophils Absolute Auto 100 /uL (0-100); Basophils Percent Auto 1.1 % (0-2); Eosinophils Absolute Auto 100 /uL (0-450); Eosinophils Percent Auto 1.9 % (2-4); Hematocrit 40.4 % (41-53); Hemoglobin 13.8 g/dL (13.5-17.5); Lymphocytes Absolute Auto 1500 /uL (1100-4500); Lymphocytes Percent Auto 20.1 % (25-40); Mean Corpuscular HGB Conc 34.2 % (30-36); Mean Corpuscular Hemoglobin 30.6 PG (26-34); Mean Corpuscular Volume 89.3 fL (80-100); Monocytes Absolute Auto 800 /uL (0-900); Monocytes Percent Auto 10.3 % (3-14); Neutrophils Absolute Auto 5100 /uL (1500-7000); Neutrophils Percent Auto 66.6 % (50-75); Platelet Count 265 X10^3/uL (150-400); Red Blood Cell Count 4.53 X10^6/uL (4.5-5.9); Red Cell Distribution Width 13.6 % (11.6-14.8); White Blood Cell Count 7.6 X10^3/uL (4.5-11.0)
[2021-11-18 12:41] LABS: Alanine Aminotransferase 17 IU/L (<50); Albumin 4.2 g/dL (3.5-5.0); Albumin Globulin Ratio 1.3 (1.0-2.8); Alkaline Phosphatase 77 U/L (38-126); Aspartate Aminotransferase 24 IU/L (17-59); BUN Creatinine Ratio 16.9 (6-22); Bilirubin Total 0.5 mg/dL (0.2-1.3); Blood Urea Nitrogen 20 mg/dL (9-20); Carbon Dioxide 23 mmol/L (22-32); Chloride 107 mmol/L (98-107); Creatine Kinase 99 U/L (55-170); Estimated Glomerular Filt Rate > 60 mL/min (>60); Globulin 3.2 g/dL (1.7-4.1); Glucose 105 mg/dL (80-110); HEMOLYSIS < 15 (0-50); Lipase 69 U/L (23-300); Magnesium 1.8 mg/dL (1.6-2.3); Potassium 4.3 mmol/L (3.4-5.1); Sodium 140 mmol/L (137-145); Total Protein 7.4 g/dL (6.3-8.2)
[2021-11-18 12:45] LABS: INR 1.6 (0.9-1.3); Prothrombin Time 18.4 SECONDS (10.1-12.7)
[2021-11-18 12:47] LABS: PTT Partial Thromboplastin Tim 37 SECONDS (26-36)
[2021-11-18 12:52] LABS: Troponin I 0.022 ng/mL (0.01-0.034)
--- NOTE | 2021-11-18 13:47 | PC.NURSE ---
At 1336 pt noted on telemetry to have an approximately 4 second pause then a sinus bradycardia rhythm. Checked on pt and he states I suddenly felt a spaciness. Pt denies SOB/CP/dizziness. BP stable. Strip printed and Dr. Bolaños notified.
== END 2021-11-18 15:50 | disposition home or self-care (01) ==
PROVIDERS: Emergency Provider Emergency Medicine; PCP Family Medicine
DX: I48.0 Paroxysmal atrial fibrillation (principal); Z79.01 Long term (current) use of anticoagulants; Z20.822 Contact with and (suspected) exposure to COVID-19
CPT/HCPCS: 36415; 71045; 80053; 82550; 83690; 83735; 84484; 85025; 85610; 85730; 87635; 93005; 96361; 96374; 99284; C9803

== ENCOUNTER → 2021-12-29 09:30 | Outpatient (CLI) | payer MEDICARE, SELFPAY ==
[2021-12-29 10:08] LABS: BUN Creatinine Ratio 14.8 (6-22); Blood Urea Nitrogen 17 mg/dL (9-20); Calcium 8.8 mg/dL (8.4-10.2); Carbon Dioxide 28 mmol/L (22-32); Chloride 103 mmol/L (98-107); Estimated Glomerular Filt Rate > 60 mL/min (>60); Glucose 134 mg/dL (80-110); HEMOLYSIS < 15 (0-50); Magnesium 1.8 mg/dL (1.6-2.3); Potassium 3.9 mmol/L (3.4-5.1); Sodium 140 mmol/L (137-145)
== END ==
PROVIDERS: PCP Family Medicine; Referring Provider Internal Medicine Cardiovascular Disease; Visit Provider Internal Medicine Cardiovascular Disease
DX: I48.0 Paroxysmal atrial fibrillation (principal); I10 Essential (primary) hypertension
CPT/HCPCS: 36415; 80048; 83735

== ENCOUNTER → 2022-02-16 09:45 | Outpatient (CLI) | payer MEDICARE, SELFPAY ==
[2022-02-16 10:20] LABS: Hematocrit 38.2 % (41-53); Hemoglobin 12.9 g/dL (13.5-17.5); Mean Corpuscular HGB Conc 33.7 % (30-36); Mean Corpuscular Hemoglobin 29.5 PG (26-34); Mean Corpuscular Volume 87.7 fL (80-100); Platelet Count 210 X10^3/uL (150-400); Red Blood Cell Count 4.36 X10^6/uL (4.5-5.9); Red Cell Distribution Width 13.2 % (11.6-14.8); White Blood Cell Count 4.2 X10^3/uL (4.5-11.0)
[2022-02-16 10:39] LABS: Alanine Aminotransferase 20 IU/L (<50); Albumin 4.2 g/dL (3.5-5.0); Albumin Globulin Ratio 1.2 (1.0-2.8); Alkaline Phosphatase 69 U/L (38-126); Aspartate Aminotransferase 27 IU/L (17-59); BUN Creatinine Ratio 14.3 (6-22); Bilirubin Total 0.8 mg/dL (0.2-1.3); Blood Urea Nitrogen 16 mg/dL (9-20); Calcium 8.9 mg/dL (8.4-10.2); Carbon Dioxide 27 mmol/L (22-32); Chloride 101 mmol/L (98-107); Estimated Glomerular Filt Rate > 60 mL/min (>60); Globulin 3.4 g/dL (1.7-4.1); Glucose 102 mg/dL (80-110); HEMOLYSIS < 15 (0-50); Potassium 4.2 mmol/L (3.4-5.1); Sodium 137 mmol/L (137-145); Total Protein 7.6 g/dL (6.3-8.2)
[2022-02-16 10:50] LABS: Neutrophils Absolute Manual 2352 /uL (3000-5900); Total Cells Counted 100
[2022-02-16 10:51] LABS: RBC Morphology Normal Morphology
[2022-02-16 11:04] LABS: TSH w/ Reflex to FT4 1.37 uIU/mL (0.47-4.68)
[2022-02-16 11:15] LABS: Prostate Specific Antigen 2.23 ng/mL (0.10-4.00)
== END ==
PROVIDERS: PCP Family Medicine; Referring Provider Family Medicine; Visit Provider Family Medicine
DX: Z00.00 Encounter for general adult medical examination without abnormal findings (principal); R07.89 Other chest pain; I10 Essential (primary) hypertension; F41.9 Anxiety disorder, unspecified
CPT/HCPCS: 36415; 80053; 84153; 84443; 85025

== ENCOUNTER → 2022-05-25 09:27 | Outpatient (CLI) | payer MEDICARE, SELFPAY ==
[2022-05-25 10:17] LABS: Reticulocyte Count, Percent 1.6 % (0.9-2.6)
[2022-05-25 10:18] LABS: Add Manual Diff / Slide Review NO; Basophils Absolute Auto 100 /uL (0-100); Basophils Percent Auto 1.1 % (0-2); Eosinophils Absolute Auto 200 /uL (0-450); Eosinophils Percent Auto 2.9 % (2-4); Hematocrit 40.3 % (41-53); Hemoglobin 13.8 g/dL (13.5-17.5); Lymphocytes Absolute Auto 1200 /uL (1100-4500); Lymphocytes Percent Auto 21.2 % (25-40); Mean Corpuscular HGB Conc 34.3 % (30-36); Mean Corpuscular Hemoglobin 29.7 PG (26-34); Mean Corpuscular Volume 86.6 fL (80-100); Monocytes Absolute Auto 600 /uL (0-900); Monocytes Percent Auto 10.4 % (3-14); Neutrophils Absolute Auto 3600 /uL (1500-7000); Neutrophils Percent Auto 64.4 % (50-75); Platelet Count 223 X10^3/uL (150-400); Red Blood Cell Count 4.65 X10^6/uL (4.5-5.9); Red Cell Distribution Width 14.1 % (11.6-14.8); White Blood Cell Count 5.6 X10^3/uL (4.5-11.0)
[2022-05-25 10:38] LABS: HEMOLYSIS < 15 (0-50); Iron 74 ug/dL (49-181)
[2022-05-25 10:49] LABS: Percent Iron Saturation 17 % (20-50); Total Iron Binding Capacity 430 ug/dL (261-462); Transferrin 309 mg/dL (206-381)
[2022-05-25 11:27] LABS: Vitamin B12 573 pg/mL (239-931)
== END ==
PROVIDERS: PCP Family Medicine; Referring Provider Family Medicine; Visit Provider Family Medicine
DX: I10 Essential (primary) hypertension (principal); D64.9 Anemia, unspecified; I48.20 Chronic atrial fibrillation, unspecified
CPT/HCPCS: 36415; 82607; 83540; 83550; 85025; 85045

== ENCOUNTER → 2022-07-08 10:07 | Outpatient (CLI) | payer MEDICARE, SELFPAY ==
--- NOTE | 2022-07-08 10:09 | DI.RAD.S_ITS ---
PROCEDURE: XR KNEE LT 3V INDICATIONS: Knee injury TECHNIQUE: 3 views of the knee were acquired. COMPARISON: None. FINDINGS: Bones: No fractures or dislocations. No suspicious bony lesions. No displaced fracture or significant degenerative change. Soft tissues: No joint effusion. No suspicious soft tissue calcifications. IMPRESSION: No displaced fracture. Dictated by: Joseph Granados M.D. on 07/08/2022 at 13:06 Approved by: Joseph Granados M.D. on 07/08/2022 at 13:06
== END ==
PROVIDERS: PCP Family Medicine; Referring Provider Nurse Practitioner Family; Visit Provider Nurse Practitioner Family
DX: S89.92XA Unspecified injury of left lower leg, initial encounter (principal)
CPT/HCPCS: 73562

== ENCOUNTER → 2022-07-09 09:43 | Outpatient (CLI) | payer MEDICARE, SELFPAY ==
--- NOTE | 2022-07-09 09:44 | DI.RAD.S_ITS ---
PROCEDURE: XR WRIST RT MIN 3V INDICATIONS: Hand pain TECHNIQUE: 4 views of the wrist were acquired. COMPARISON: None. FINDINGS: Bones: No fractures or dislocations. No suspicious bony lesions. Scaphoid view: No acute fracture identified Soft tissues: No suspicious soft tissue calcifications. IMPRESSION: No acute osseous abnormality. If symptoms persist, follow-up radiographs and/or CT or MRI may be helpful for further evaluation. Dictated by: Flavio Connolly M.D. on 07/09/2022 at 12:31 Approved by: Flavio Connolly M.D. on 07/09/2022 at 12:34
--- NOTE | 2022-07-09 09:44 | DI.RAD.S_ITS ---
PROCEDURE: XR HAND RT MIN 3V INDICATIONS: Hand pain TECHNIQUE: 3 views of the hand(s) acquired. COMPARISON: None. FINDINGS: Bones: No fractures or dislocations. Carpal bones are normally aligned. No suspicious bony lesions. Mild Polyarticular degenerative changes present involving multiple MCP joints and IP joints. Soft tissues: No suspicious soft tissue calcifications. IMPRESSION: No acute osseous abnormality. If symptoms persist, follow-up radiographs and/or CT or MRI may be helpful for further evaluation. Dictated by: Flavio Connolly M.D. on 07/09/2022 at 12:27 Approved by: Flavio Connolly M.D. on 07/09/2022 at 12:31
== END ==
PROVIDERS: PCP Family Medicine; Referring Provider Nurse Practitioner Family; Visit Provider Nurse Practitioner Family
DX: M79.641 Pain in right hand (principal)
CPT/HCPCS: 73110; 73130

== ENCOUNTER 2022-07-12 13:37 | Emergency (ER) | payer MEDICARE, SELFPAY ==
[2022-07-12 13:46] VITALS: BP 136/85; PULSE 60; RESP 14; TEMP 36.6; O2SAT 99; BMI 30.7
--- NOTE | 2022-07-12 13:55 | DI.RAD.S_ITS ---
PROCEDURE: XR WRIST RT MIN 3V INDICATIONS: atraumatic swelling/tingling/discoloration TECHNIQUE: Four views of the wrist were acquired. COMPARISON: [facility], , XR WRIST RT MIN 3V, 07/09/2022, 9:56. FINDINGS: Bones: No fractures or dislocations. No suspicious bony lesions. Mild arthritic changes at the 2nd and 3rd MCP, 1st CMC joints, and triscaphe articulation. Scaphoid view: Intact scaphoid. Soft tissues: No suspicious soft tissue calcifications. No soft tissue gas or foreign bodies. IMPRESSION: Intact right wrist with scattered arthritic change. Dictated by: Yajaira Montenegro M.D. on 07/12/2022 at 14:08 Approved by: Yajaira Montenegro M.D. on 07/12/2022 at 14:09
--- NOTE | 2022-07-12 13:55 | DI.RAD.S_ITS ---
PROCEDURE: XR HAND RT MIN 3V INDICATIONS: atraumatic swelling/tingling/discoloration TECHNIQUE: 3 views of the hand(s) acquired. COMPARISON: [facility], CR, XR HAND RT MIN 3V, 07/09/2022, 9:55. FINDINGS: Bones: No fractures or dislocations. Carpal bones are normally aligned. No suspicious bony lesions. There are mild chronic arthritic changes at the 2nd and 3rd MCP joints. Mild subcortical cystic change seen at the 2nd head. Soft tissues: No suspicious soft tissue calcifications. No soft tissue gas. IMPRESSION: 1. No acute abnormality. 2. Scattered arthritic changes. Dictated by: Yajaira Montenegro M.D. on 07/12/2022 at 14:07 Approved by: Yajaira Montenegro M.D. on 07/12/2022 at 14:08
[2022-07-12 15:24] VITALS: PULSE 70
--- NOTE | 2022-07-12 15:30 | PC.NURSE ---
+ brown discoloration which appears to line up with where brace is.
[2022-07-12 15:39] VITALS: BP 146/92; PULSE 52; O2SAT 98
--- NOTE | 2022-07-12 15:45 | ED_ITS ---
HPI - Extremity Problem <Kassi Zamudio PA-C - Last Filed: 07/12/22 16:15> General Chief complaint: Extremity Problem,Nontraumatic Stated complaint: RT hand hurts swollen discolored tingles T-8 Time Seen by Provider: 07/12/22 14:51 Source: patient Mode of arrival: Ambulatory History of Present Illness HPI Narrative: 67-year-old male presents to the ED with 3 days of right hand swelling, discoloration, tingling. Patient states that he is had some numbness and tingling for the last week, was seen at the walk-in clinic on 07/09/2022, diagnosed with tendinitis and fitted with a removable wrist brace. Patient stat es that he has been wearing the brace on and off, however since then he has seen discoloration in the areas where the brace covers. Patient denies weakness. Patient denies being on blood thinners. Patient denies trauma. Related Data Home Medications Medication Instructions Recorded Confirmed hydrochlorothiazide 12.5 mg tablet 12.5 mg PO 02/18/22 05/25/22 magnesium oxide 400 mg (241.3 mg 400 mg PO 02/18/22 05/25/22 magnesium) tablet metoprolol succinate 25 mg capsule 25 mg PO BID 02/18/22 05/25/22 sprinkle, ext. release 24 hr potassium chloride 10 mEq 10 meq PO DAILY 02/18/22 05/25/22 tablet,extended release Previous Rx's Medication Instructions Recorded fluoxetine 20 mg capsule 20 mg PO DAILY #90 caps 05/25/22 sildenafil 100 mg tablet 100 mg PO DAILY PRN sexual 05/25/22 activity #30 tabs omeprazole 20 mg capsule,delayed 40 mg PO DAILY #90 caps 06/18/22 release Allergies Allergy/AdvReac Type Severity Reaction Status Date / Time No Known Drug Allergies Allergy Verified 07/12/22 13:50 Review of Systems <Kassi Zamudio PA-C - Last Filed: 07/12/22 16:15> Review of Systems ROS Unobtainable: All systems reviewed & are unremarkable except as noted in HPI and below Constitutional Constitutional: Denies chills, Denies fatigue, Denies fever(s), Denies frequent falls, Denies lethargy and Denies weakness Eyes Eyes: Denies change in vision, Denies eye discharge, Denies irritation and Denies loss of vision ENT Ears, Nose, Mouth, and Throat: Denies change in voice, Denies dizziness, Denies neck pain, Denies sore throat and Denies throat swelling Cardiovascular Cardiovascular: Denies chest pain, Denies irregular heart rhythm, Denies lightheadedness, Denies palpitations, Denies dyspnea, Denies dyspnea on exertion and Denies orthopnea Respiratory Respiratory: Denies cough, Denies dyspnea, Denies dyspnea on exertion and Denies wheezing Gastrointestinal Gastrointestinal: Denies abdominal pain, Denies change in bowel habits, Denies diarrhea, Denies nausea and Denies vomiting Genitourinary Genitourinary: Denies hematuria, Denies flank pain, Denies urinary incontinence and Denies urinary urgency Musculoskeletal Musculoskeletal: Denies back pain, Denies muscle weakness, Denies neck pain, Denies numbness and Denies tingling Comments: Right hand swelling, discoloration, tingling, numbness Integumentary/Breasts Skin/Breast: Denies pruritus, Denies erythema, Denies rash and Denies wounds Neurologic Neurologic: Denies behavioral changes, Denies confusion, Denies dizziness, Denies frequent falls, Denies loss of vision, Denies numbness, Denies tingling and Denies weakness Psychiatric Psychiatric: Denies anxiety, Denies behavioral changes, Denies confusion, Denies depression, Denies homicidal ideation and Denies suicidal ideation Endocrine Endocrine: Denies fatigue, Denies flushing and Denies palpitations Hematologic/Lymphatic Hematologic/Lymphatic: Denies easy bruising Allergic/Immunologic Allergic/Immunologic: Denies urticaria, Denies throat swelling and Denies wheez ing Patient History <Kassi Zamudio PA-C - Last Filed: 07/12/22 16:15> Medical History Anemia Anxiety Chronic atrial fibrillation Chronic low back pain Erectile dysfunction GERD (gastroesophageal reflux disease) Hypertension Obstructive sleep apnea Well adult exam Surgical History H/O cardiac radiofrequency ablation Family History Mother No problems noted. Father Cancer Sister No problems noted. Social History Smoking Status: Former smoker Smoking Status: Former smoker alcohol intake frequency: holidays/special occasions only Substance Use Type: does not use Exam <Kassi Zamudio PA-C - Last Filed: 07/12/22 16:15> Narrative Exam Narrative: Const General:?cooperative, healthy appearing and comfortable [facility] Head:?normal to inspection Ears:?hearing grossly normal bilaterally Nose:?external nose normal Face and sinus:?normal facial exam and sinuses nontender Mouth:?oral mucosae normal Throat:?posterior oropharynx normal Eyes General:?appearance normal, both eyes and all related structures Neck Neck:?normal visual inspection and no lymphadenopathy noted Resp Effort & Inspection:?normal respiratory effort Auscultation:?clear to auscultation bilaterally Cardio Rate:?regular rate Rhythm:?regular rhythm Musculoskeletal There is bruising of the right palm, dorsal aspect of the right hand. There is also some discoloration below the wrist wear the wrist brace covers the skin. There is full range of motion. Strength and sensation is intact. Patient is neurovascularly intact. Compartments are soft. Neuro General:?patient alert, patient awake and patient oriented x3 Initial Vital Signs Initial Vital Signs: Vital Signs Temperature 97.9 F 07/12/22 13:46 Pulse Rate 60 07/12/22 13:46 Respiratory Rate 14 07/12/22 13:46 Blood Pressure 136/85 07/12/22 13:46 Pulse Oximetry 99 07/12/22 13:46 Oxygen Delivery Method Room Air 07/12/22 13:46 <Melissa Meyer DO - Last Filed: 07/12/22 19:23> Initial Vital Signs Initial Vital Signs: Vital Signs Temperature 97.9 F 07/12/22 13:46 Pulse Rate 60 07/12/22 13:46 Respiratory Rate 14 07/12/22 13:46 Blood Pressure 136/85 07/12/22 13:46 Pulse Oximetry 99 07/12/22 13:46 Oxygen Delivery Method Room Air 07/12/22 13:46 Course <Kassi Zamudio PA-C - Last Filed: 07/12/22 16:15> Orders Ordered: ED Orders 07/12/22 13:55 XR hand RT min 3V Stat XR wrist RT min 3V Stat Vital Signs Vital signs: Vital Signs - 8 hr 07/12/22 13:46 07/12/22 15:24 07/12/22 15:39 Temperature 97.9 F Pulse Rate 60 52 L Pulse Rate [Bilateral Radial] 70 Respiratory Rate 14 Blood Pressure 136/85 146/92 H Pulse Oximetry 99 98 Oxygen Delivery Method Room Air <Melissa Meyer DO - Last Filed: 07/12/22 19:23> Orders Ordered: ED Orders 07/12/22 13:55 XR hand RT min 3V Stat XR wrist RT min 3V Stat Vital Signs Vital signs: Vital Signs - 8 hr 07/12/22 13:46 07/12/22 15:24 07/12/22 15:39 Temperature 97.9 F Pulse Rate 60 52 L Pulse Rate [Bilateral Radial] 70 Respiratory Rate 14 Blood Pressure 136/85 146/92 H Pulse Oximetry 99 98 Oxygen Delivery Method Room Air MDM - Extremity (Nontraumatic) <Kassi Zamudio PA-C - Last Filed: 07/12/22 16:15> MDM Narrative Medical decision making narrative: 67-year-old male presents to the ED with 3 days of right hand swelling, discoloration, tingling. Concern for fracture/dislocation versus traumatic bruising versus other. Obtained x-rays which did not show evidence of fractures or dislocations. It is unclear why patient has the bruising and discoloration, possibly related to the wrist brace since that is when the discoloration started. Advise patient stop using the brace until he is able to see his primary care doctor. Patient has a appointment with his PCP next week. ED return precautions were discussed with patient. Patient verbalized understanding. Medical records reviewed: Yes Discharge Plan Departure Patient Disposition: Home Clinical Impression: Hand pain Instructions: DI for Hand Pain Activity Restrictions/Additional Instructions: You were evaluated in the ED today for right hand swelling and pain. Your x- rays were negative for fractures or dislocations. The cause of your symptoms is unclear, though it can be caused by trauma or by the recent use of the wrist brace. Please stop using the brace until you are able to see your primary care provider next week. Return to the ED if you have worsening symptoms, tingling, numbness, weakness. Prescriptions: No Action omeprazole 20 mg capsule,delayed release(DR/EC) 40 mg PO DAILY Qty: 90 2RF metoprolol succinate 25 mg capsule,sprinkle,ER 24hr 25 mg PO BID hydrochlorothiazide 12.5 mg tablet 12.5 mg PO magnesium oxide 400 mg (241.3 mg magnesium) tablet 400 mg PO potassium chloride 10 mEq tablet extended release 10 meq PO DAILY fluoxetine 20 mg capsule 20 mg PO DAILY Qty: 90 3RF sildenafil 100 mg tablet 100 mg PO DAILY PRN (Reason: sexual activity) Qty: 30 2RF Rx Instructions: administer 30 minutes to 4 hours before activity Referrals: Turner Mcgregor DO [Primary Care Provider] - Stand Alone Forms: Patient Portal/API <Melissa Meyer DO - Last Filed: 07/12/22 19:23> Cosign ED Attending [place]onne[place] Attestation: I was immediately available in the department for consultation. Documentation has been reviewed.
== END 2022-07-12 15:48 | disposition home or self-care (01) ==
PROVIDERS: Emergency Provider Student in an Organized Health Care Education/Training Program; PCP Family Medicine
DX: M79.641 Pain in right hand (principal)
CPT/HCPCS: 73110; 73130; 99283

== ENCOUNTER → 2022-12-08 07:50 | Outpatient (CLI) | payer MEDICARE, SELFPAY ==
--- NOTE | 2022-12-08 07:51 | DI.RAD.S_ITS ---
PROCEDURE: FL UPPER GI SERIES INDICATIONS: Chronic Gerd COMPARISON: None. FINDINGS: KUB: Preprocedural spinning frame tender film demonstrates a normal bowel gas pattern. No suspicious abdominal calcifications. Visualized solid organ contours appear normal. Bony structures appear unremarkable. Esophagus: There is mildly weakened esophageal peristalsis. No strictures, extrinsic mass effects, or diverticula. Small to moderate hiatal hernia. Moderate gastroesophageal reflux. Stomach: Stomach is normally distensible, without extrinsic mass effects. Pylorus and duodenal bulb demonstrate normal single-contrast morphology. There is ready transit of contrast through the gastric outlet into the small bowel. IMPRESSION: Small to moderate hiatal hernia, with moderate gastroesophageal reflux. Mild esophageal dysmotility. This would likely be worse in the absence of omeprazole. Dictated by: Joseph Granados M.D. on 12/08/2022 at 10:04 Approved by: Joseph Granados M.D. on 12/08/2022 at 10:05
== END ==
PROVIDERS: PCP Family Medicine; Referring Provider Family Medicine; Visit Provider Family Medicine
DX: K21.9 Gastro-esophageal reflux disease without esophagitis (principal); K44.9 Diaphragmatic hernia without obstruction or gangrene; K22.4 Dyskinesia of esophagus
CPT/HCPCS: 74240

== ENCOUNTER → 2022-12-14 09:10 | Outpatient (CLI) | payer MEDICARE, SELFPAY ==
[2022-12-14 10:23] LABS: Add Manual Diff / Slide Review NO; Basophils Absolute Auto 100 /uL (0-100); Basophils Percent Auto 1.1 % (0-2); Eosinophils Absolute Auto 100 /uL (0-450); Eosinophils Percent Auto 2.5 % (2-4); Hemoglobin 13.4 g/dL (13.5-17.5); Lymphocytes Absolute Auto 1200 /uL (1100-4500); Lymphocytes Percent Auto 25.1 % (25-40); Mean Corpuscular HGB Conc 34.2 % (30-36); Mean Corpuscular Hemoglobin 30.3 PG (26-34); Mean Corpuscular Volume 88.6 fL (80-100); Monocytes Absolute Auto 600 /uL (0-900); Monocytes Percent Auto 11.6 % (3-14); Neutrophils Absolute Auto 2900 /uL (1500-7000); Neutrophils Percent Auto 59.7 % (50-75); Platelet Count 184 X10^3/uL (150-400); Red Blood Cell Count 4.41 X10^6/uL (4.5-5.9); Red Cell Distribution Width 14.1 % (11.6-14.8); White Blood Cell Count 4.9 X10^3/uL (4.5-11.0)
[2022-12-14 10:43] LABS: HEMOLYSIS < 15 (0-50); Iron 69 ug/dL (49-181)
[2022-12-14 10:45] LABS: Alanine Aminotransferase 22 IU/L (<50); Albumin 4.3 g/dL (3.5-5.0); Albumin Globulin Ratio 1.3 (1.0-2.8); Alkaline Phosphatase 66 U/L (38-126); Aspartate Aminotransferase 27 IU/L (17-59); BUN Creatinine Ratio 15.1 (6-22); Bilirubin Total 0.9 mg/dL (0.2-1.3); Blood Urea Nitrogen 19 mg/dL (9-20); Calcium 9.2 mg/dL (8.4-10.2); Carbon Dioxide 29 mmol/L (22-32); Chloride 102 mmol/L (98-107); Estimated Glomerular Filt Rate > 60 mL/min (>60); Globulin 3.2 g/dL (1.7-4.1); Glucose 101 mg/dL (80-110); HEMOLYSIS < 15 (0-50); Potassium 4.1 mmol/L (3.4-5.1); Sodium 139 mmol/L (137-145); Total Protein 7.5 g/dL (6.3-8.2)
[2022-12-14 10:54] LABS: Percent Iron Saturation 18 % (20-50); Total Iron Binding Capacity 377 ug/dL (261-462); Transferrin 293 mg/dL (206-381)
[2022-12-14 11:33] LABS: Vitamin B12 697 pg/mL (239-931)
== END ==
PROVIDERS: PCP Family Medicine; Referring Provider Family Medicine; Visit Provider Family Medicine
DX: D64.9 Anemia, unspecified (principal); I48.20 Chronic atrial fibrillation, unspecified; F41.9 Anxiety disorder, unspecified; I10 Essential (primary) hypertension
CPT/HCPCS: 36415; 80053; 82607; 83540; 83550; 85025

== ENCOUNTER → 2023-01-26 09:20 | Outpatient (CLI) | payer MEDICARE, SELFPAY | PROVIDERS: PCP Family Medicine; Visit Provider Nurse Practitioner Family | DX: J02.9 Acute pharyngitis, unspecified (principal) | CPT/HCPCS: 87070 ==

== ENCOUNTER → 2023-03-14 08:52 | Outpatient (CLI) | payer OTHER, SELFPAY ==
[2023-03-14 10:19] LABS: Add Manual Diff / Slide Review NO; Basophils Absolute Auto 0 /uL (0-100); Basophils Percent Auto 0.8 % (0-2); Eosinophils Absolute Auto 200 /uL (0-450); Eosinophils Percent Auto 3.4 % (2-4); Hematocrit 41.3 % (41-53); Hemoglobin 14.3 g/dL (13.5-17.5); Lymphocytes Absolute Auto 1200 /uL (1100-4500); Mean Corpuscular HGB Conc 34.7 % (30-36); Mean Corpuscular Hemoglobin 31.4 PG (26-34); Mean Corpuscular Volume 90.5 fL (80-100); Monocytes Absolute Auto 700 /uL (0-900); Neutrophils Absolute Auto 3600 /uL (1500-7000); Neutrophils Percent Auto 62.8 % (50-75); Platelet Count 202 X10^3/uL (150-400); Red Blood Cell Count 4.56 X10^6/uL (4.5-5.9); Red Cell Distribution Width 13.2 % (11.6-14.8); White Blood Cell Count 5.7 X10^3/uL (4.5-11.0)
[2023-03-14 10:49] LABS: Alanine Aminotransferase 24 IU/L (<50); Albumin 4.3 g/dL (3.5-5.0); Albumin Globulin Ratio 1.3 (1.0-2.8); Alkaline Phosphatase 68 U/L (38-126); Aspartate Aminotransferase 28 IU/L (17-59); BUN Creatinine Ratio 15.6 (6-22); Blood Urea Nitrogen 20 mg/dL (9-20); Calcium 9.6 mg/dL (8.4-10.2); Carbon Dioxide 28 mmol/L (22-32); Chloride 103 mmol/L (98-107); Cholesterol 184 mg/dL (140-199); Estimated Glomerular Filt Rate > 60 mL/min (>60); Globulin 3.3 g/dL (1.7-4.1); Glucose 100 mg/dL (80-110); HDL Cholesterol 31 mg/dL (40-60); HEMOLYSIS < 15 (0-50); LDL Cholesterol Calculated 100 mg/dL (<100); Potassium 4.1 mmol/L (3.4-5.1); Sodium 138 mmol/L (137-145); Total Protein 7.6 g/dL (6.3-8.2); Triglycerides 266 mg/dL (35-150)
[2023-03-14 11:15] LABS: Prostate Specific Antigen Scrn 2.02 ng/mL (0.1-4.0)
== END ==
PROVIDERS: PCP Family Medicine; Referring Provider Family Medicine; Visit Provider Family Medicine
DX: Z12.5 Encounter for screening for malignant neoplasm of prostate (principal); K21.9 Gastro-esophageal reflux disease without esophagitis; I10 Essential (primary) hypertension; D64.9 Anemia, unspecified; F41.9 Anxiety disorder, unspecified
CPT/HCPCS: 36415; 80053; 80061; 85025; G0103

== ENCOUNTER 2023-03-16 12:19 | Inpatient (IN) | payer OTHER, SELFPAY ==
[2023-03-16] VITALS (7 sets, daily range): BP systolic 109–128; BP diastolic 67–80; PULSE 62–73; RESP 14–18; TEMP 36.5–37.1; O2SAT 95–99; BMI 32.1
--- NOTE | 2023-03-16 12:56 | DI.US.S_ITS ---
PROCEDURE: US ABDOMEN LIMITED INDICATIONS: RUQ/EPIGASTRIC PAIN X 2 DAYS, VOMITING X 1 DAY TECHNIQUE: Real-time scanning was performed of the abdominal and retroperitoneal organs, with image documentation. COMPARISON: None. FINDINGS: Liver: Liver is normal in size and homogeneous in echotexture. Gallbladder: Cholelithiasis is present. No gallbladder wall thickening. Biliary ducts: Intrahepatic bile ducts are non-dilated. Extrahepatic bile duct caliber measures 8 mm. Normal is 6-7 mm or less in diameter, or 10 mm or less post-cholecystectomy. Pancreas: Visualized portions of the pancreas are sonographically normal. Spleen: Spleen is normal in size and homogeneous in echotexture. Kidneys: Multiple right renal cysts. No hydronephrosis. IMPRESSION: Cholelithiasis. No acute process. Dictated by: Brett Torres M.D. on 03/16/2023 at 13:42 Approved by: Brett Torres M.D. on 03/16/2023 at 13:43
--- NOTE | 2023-03-16 13:00 | ED_ITS ---
HPI - Abdominal Pain General Chief Complaint: Abdominal Pain Stated Complaint: abd pain, sent by [place] Time Seen by Provider: 03/16/23 12:29 Source: patient Mode of arrival: Family Vehicle History of Present Illness HPI narrative: Patient is a 67-year-old male with a history of AFib status post ablation, who presents with upper abdominal pain x2 days. His current symptoms started 2 days ago. He complains of a dull pain and feeling of bloatedness in his epigastrium. He vomited once yesterday. He does not note any relieving or aggravating factors. Has not tried taking any additional medications besides his maintenance meds. Denies shortness of breath, dyspnea on exertion, chest pain, pain that radiates down his arm. Reports this pain does not radiate. Denies constipation or diarrhea, urinary symptoms. Patient reports drinking 3-4 alcoholic drinks every other day. He is currently undergoing evaluation for chronic GERD, on omeprazole 40 mg daily. Upper GI 12/06 study showed GERD and dysmotility. Referred by PCP Dr. Mcgregor for EGD and colonoscopy, scheduled for next month. Reports that this feels different than his previous GERD symptoms. No hx pancreatitis. Related Data Home Medications Medication Instructions Recorded Confirmed magnesium oxide 400 mg (241.3 mg 400 mg PO DAILY 02/18/22 03/16/23 magnesium) tablet potassium chloride 10 mEq 10 meq PO DAILY 02/18/22 03/16/23 tablet,extended release aspirin 81 mg tablet,delayed 81 mg PO DAILY 01/26/23 03/16/23 release lisinopril 30 mg tablet 30 mg PO DAILY 01/26/23 03/16/23 metoprolol succinate 25 mg 25 mg PO BID 01/26/23 03/16/23 tablet,extended release 24 hr Previous Rx's Medication Instructions Recorded fluoxetine 20 mg capsule 20 mg PO DAILY #90 caps 05/25/22 omeprazole 20 mg capsule,delayed 40 mg (2 x 20 mg) PO DAILY #180 11/19/22 release caps sildenafil 100 mg tablet 100 mg PO DAILY PRN sexual 01/20/23 activity #30 tabs Allergies Allergy/AdvReac Type Severity Reaction Status Date / Time No Known Drug Allergies Allergy Verified 02/01/23 15:44 Review of Systems Review of Systems ROS Unobtainable: All systems reviewed & are unremarkable except as noted in HPI and below Patient History Medical History Colon polyps Chronic GERD History of pericarditis Family history of prostate cancer Frequent PVCs Hyperlipidemia Erectile dysfunction GERD (gastroesophageal reflux disease) Anemia Chronic low back pain Obstructive sleep apnea Chronic atrial fibrillation Well adult exam Anxiety Hypertension Surgical History H/O cardiac radiofrequency ablation Family History Mother No problems noted. Father Cancer Sister No problems noted. Social History household members: family Smoking Status: Former smoker alcohol intake: current Smoking Status: Former smoker alcohol intake frequency: 3 or more drinks per day Substance Use Type: does not use Exam Narrative Exam Narrative: GENERAL: 67 year old patient appears stated age. Well-developed patient, in no acute distress. NEURO: AOx3. HEAD: Atraumatic. Normocephalic. EYES: Pupils equal round and reactive. Extraocular motions intact. No scleral icterus. No injection or drainage. ENT: Nose without bleeding or purulent drainage. Airway patent. NECK: Trachea midline. Non tender CARDIOVASCULAR: Regular rate and rhythm without murmurs, gallops, or rubs. RESPIRATORY: Clear to auscultation. Breath sounds equal bilaterally. No wheezes, rales, or rhonchi. GASTROINTESTINAL: Tender over epigastrium, +RUQ pain, no lower abdominal tenderness, no CVA tenderness. EXTREMITIES: No edema or joint tenderness. SKIN: No rash or erythema of visible areas Initial Vital Signs Initial Vital Signs: Vital Signs Temperature 97.7 F 03/16/23 12:30 Pulse Rate 73 03/16/23 12:30 Respiratory Rate 16 03/16/23 12:30 Blood Pressure 117/80 03/16/23 12:30 Pulse Oximetry 96 03/16/23 12:30 Oxygen Delivery Method Room Air 03/16/23 12:30 Course Orders Ordered: Discontinued Medications Acetaminophen (Acetaminophen 325 Mg Tablet) 650 mg PO Q4H PRN PRN Reason: Fever/Mild Pain (1-3) Last Admin: 03/17/23 05:20 Dose: 650 mg Documented By: ROMARIO Aspirin (Aspirin Ec 81 Mg Tablet) 81 mg PO DAILY ASAEL Last Admin: 03/17/23 08:40 Dose: 81 mg Documented By: DARREN Fluoxetine HCl (Fluoxetine 20 Mg Capsule) 20 mg PO DAILY [facility] Last Admin: 03/17/23 08:41 Dose: 20 mg Documented By: DARREN Folic Acid (Folic Acid 1 Mg Tablet) 1 mg PO DAILY [facility] Last Admin: 03/17/23 08:40 Dose: 1 mg Documented By: DARREN Heparin Sodium (Porcine) (Heparin 5,000 Unit/Ml Vial) 5,000 unit SUBCUT BID [facility] Last Admin: 03/17/23 08:41 Dose: 5,000 unit Documented By: Admin: 03/16/23 20:30 Dose: 5,000 unit Documented By: ROMARIO Hydrochlorothiazide (Hydrochlorothiazide 25 Mg Tablet) 12.5 mg PO DAILY [facility] Last Admin: 03/17/23 08:41 Dose: 12.5 mg Documented By: DARREN Hydromorphone HCl (Hydromorphone 0.5 Mg Inj) 0.5 mg IV Q2H PRN PRN Reason: Pain, Severe (7-10) Sodium Chloride (Normal Saline 0.9%) 1,000 mls @ 1,000 mls/hr IV BOLUS ONE Stop: 03/16/23 15:20 Last Infusion: 03/16/23 15:03 Dose: 0 mls/hr Documented By: Admin: 03/16/23 14:24 Dose: 1,000 mls/hr Documented By: ABIMBOLA Dextrose/Sodium Chloride (Dextrose 5%-0.9% Ns) 1,000 mls @ 125 mls/hr IV CONT [facility] Last Admin: 03/17/23 12:01 Dose: 125 mls/hr Documented By: Infusion: 03/17/23 11:08 Dose: Infused Documented By: Admin: 03/17/23 03:08 Dose: 125 mls/hr Documented By: Infusion: 03/17/23 01:20 Dose: Infused Documented By: Admin: 03/16/23 17:20 Dose: 125 mls/hr Documented By: DARREN Lisinopril (Lisinopril 10 Mg Tablet) 30 mg PO DAILY [facility] Last Admin: 03/17/23 08:40 Dose: 30 mg Documented By: DARREN Lorazepam (Lorazepam 1 Mg Tablet) 0 mg PO CIWAPRN PRN; Protocol PRN Reason: Alcohol Withdrawal Metoprolol Succinate (Metoprolol Er 25 Mg Tablet) 25 mg PO BID [facility] Last Admin: 03/17/23 08:41 Dose: 25 mg Documented By: Admin: 03/16/23 20:31 Dose: 25 mg Documented By: ROMARIO Multivitamins (Multivitamin 1 Tablet) 1 tab PO DAILY [facility] Last Admin: 03/17/23 08:40 Dose: 1 tab Documented By: DARREN Naloxone HCl (Naloxone 0.4 Mg/Ml Vial) 0.2 mg IV Q2MIN PRN PRN Reason: Opiate Reversal Ondansetron HCl (Ondansetron 4 Mg Odt) 4 mg SL NOW ONE Stop: 03/16/23 13:39 Last Admin: 03/16/23 15:12 Dose: Not Given Documented By: DARREN Ondansetron HCl (Ondansetron 4 Mg/2 Ml Inj) 4 mg IV NOW ONE Stop: 03/16/23 13:40 Last Admin: 03/16/23 13:43 Dose: 4 mg Documented By: ABIMBOLA Pantoprazole Sodium (Pantoprazole Dr 40 Mg Tablet) 40 mg PO 0600 [facility] Last Admin: 03/17/23 05:09 Dose: 40 mg Documented By: ROMARIO Potassium Chloride (Potassium Chloride 10 Meq Tab) 10 meq PO DAILY [facility] Last Admin: 03/17/23 08:40 Dose: 10 meq Documented By: DARREN Thiamine HCl (Thiamine 100 Mg Tablet) 100 mg PO DAILY [facility] Stop: 03/20/23 09:01 Last Admin: 03/17/23 08:40 Dose: 100 mg Documented By: DARREN Vital Signs Vital signs: Vital Signs - 8 hr 03/16/23 12:30 Temperature 97.7 F Pulse Rate 73 Respiratory Rate 16 Blood Pressure 117/80 Pulse Oximetry 96 Oxygen Delivery Method Room Air MDM - Abdominal Pain Lab Data 03/17/23 04:55 03/17/23 04:55 Labs: Lab Results 03/16/23 03/16/23 Range/Units 13:01 13:26 WBC 10.8 (4.5-11.0) X10^3/uL RBC 4.68 (4.5-5.9) X10^6/uL Hgb 14.4 (13.5-17.5) g/dL Hct 41.8 (41-53) % MCV 89.4 (80-100) fL MCH 30.8 (26-34) PG MCHC 34.4 (30-36) % RDW 13.2 (11.6-14.8) % Plt Count 222 (150-400) X10^3/uL Neut % (Auto) 74.5 (50-75) % Lymph % (Auto) 13.0 L (25-40) % Jay % (Auto) 10.5 (3-14) % Eos % (Auto) 1.1 L (2-4) % Baso % (Auto) 0.9 (0-2) % Neut # (Auto) 8100 H (8620-9182) /uL Lymph # (Auto) 1400 (2355-6349) /uL Jay # (Auto) 1100 H (0-900) /uL Eos # (Auto) 100 (0-450) /uL Baso # (Auto) 100 (0-100) /uL Sodium 137 (137-145) mmol/L Potassium 3.7 (3.4-5.1) mmol/L Chloride 103 (98-107) mmol/L Carbon Dioxide 24 (22-32) mmol/L BUN 24 H (9-20) mg/dL Creatinine 1.31 H (0.66-1.25) mg/dL Estimated GFR 59 L (>60) mL/min BUN/Creatinine Ratio 18.3 (6-22) Glucose 113 H (80-110) mg/dL Calcium 9.4 (8.4-10.2) mg/dL Total Bilirubin 0.9 (0.2-1.3) mg/dL AST 30 (17-59) IU/L ALT 23 (<50) IU/L Alkaline Phosphatase 71 (38-126) U/L Ammonia 10 (9-30) umol/L Total Creatine Kinase 124 (55-170) U/L Troponin I < 0.012 (0.01-0.034) ng/mL Total Protein 8.2 (6.3-8.2) g/dL Albumin 4.6 (3.5-5.0) g/dL Globulin 3.6 (1.7-4.1) g/dL Albumin/Globulin Ratio 1.3 (1.0-2.8) Lipase 05578 H (23-300) U/L Point of care testing: Urine Dip Bedside Urine Glucose Negative Bedside Urine Bilirubin - Negative Bedside Urine Ketone - Negative Urine Specific [place] 1.020 Bedside Urine Occult Blood - Negative Bedside Urine pH 6.0 Bedside Urine Protein - Negative Bedside Urine Urobilinogen - Negative Bedside Urine Nitrite - Negative Bedside Urine Leukocytes - Negative Esterase Imaging Data US - abdomen: Radiologist's Impression: PROCEDURE: US ABDOMEN LIMITED INDICATIONS: RUQ/EPIGASTRIC PAIN X 2 DAYS, VOMITING X 1 DAY TECHNIQUE: Real-time scanning was performed of the abdominal and retroperitoneal organs, with image documentation. COMPARISON: None. FINDINGS: Liver: Liver is normal in size and homogeneous in echotexture. Gallbladder: Cholelithiasis is present. No gallbladder wall thickening. Biliary ducts: Intrahepatic bile ducts are non-dilated. Extrahepatic bile duct caliber measures 8 mm. Normal is 6-7 mm or less in diameter, or 10 mm or less post-cholecystectomy. Pancreas: Visualized portions of the pancreas are sonographically normal. Spleen: Spleen is normal in size and homogeneous in echotexture. Kidneys: Multiple right renal cysts. No hydronephrosis. IMPRESSION: Cholelithiasis. No acute process. Dictated by: Brett Torres M.D. on 03/16/2023 at 13:42 Approved by: Brett Torres M.D. on 03/16/2023 at 13:43 [facility] Narrative Medical decision making narrative: Multiple etiologies for patient's symptoms considered including, but not limited to: GERD, gastritis, pancreatitis, GI bleed, cholecystitis, biliary colic We will obtain labs, abdominal ultrasound, EKG and urine. No current chest pain or shortness of breath but patient has a history of atrial fibrillation. Labs without leukocytosis, renal function slightly worse than baseline, UA negative, troponin negative, ammonia negative, lipase significantly elevated at 29k. Abdominal ultrasound with cholelithiasis, no evidence of gallbladder wall thickening or ductal dilation, no obstructing stones, visualized portions of pancreas appear normal on ultrasound. Suspect pancreatitis. Discussed with Dr. Zabala, hospitalist, who will admit. We will obtain CT abdomen pelvis with contrast to look for complications prior to admission. Patient agreeable to hospitalization, has had multiple episodes of nausea in the emergency room, treated with IV fluids and Zofran 4 mg IV. Patient declined pain meds at this time. Discharge Plan Departure Patient Disposition: Admitted As Inpatient Clinical Impression: Pancreatitis, acute Qualifiers: Pancreatitis type: unspecified pancreatitis type Acute pancreatitis complication: unspecified Qualified Code(s): K85.90 - Acute pancreatitis without necrosis or infection, unspecified Admit Date/Time: 03/16/23 14:35 Admit Provider: Geovani Zabala
[2023-03-16 13:13] LABS: Add Manual Diff / Slide Review NO; Basophils Absolute Auto 100 /uL (0-100); Basophils Percent Auto 0.9 % (0-2); Eosinophils Absolute Auto 100 /uL (0-450); Eosinophils Percent Auto 1.1 % (2-4); Hematocrit 41.8 % (41-53); Hemoglobin 14.4 g/dL (13.5-17.5); Lymphocytes Absolute Auto 1400 /uL (1100-4500); Mean Corpuscular HGB Conc 34.4 % (30-36); Mean Corpuscular Hemoglobin 30.8 PG (26-34); Mean Corpuscular Volume 89.4 fL (80-100); Monocytes Absolute Auto 1100 /uL (0-900); Monocytes Percent Auto 10.5 % (3-14); Neutrophils Absolute Auto 8100 /uL (1500-7000); Neutrophils Percent Auto 74.5 % (50-75); Platelet Count 222 X10^3/uL (150-400); Red Blood Cell Count 4.68 X10^6/uL (4.5-5.9); Red Cell Distribution Width 13.2 % (11.6-14.8); White Blood Cell Count 10.8 X10^3/uL (4.5-11.0)
[2023-03-16 13:30] LABS: Alanine Aminotransferase 23 IU/L (<50); Albumin 4.6 g/dL (3.5-5.0); Albumin Globulin Ratio 1.3 (1.0-2.8); Alkaline Phosphatase 71 U/L (38-126); Aspartate Aminotransferase 30 IU/L (17-59); BUN Creatinine Ratio 18.3 (6-22); Bilirubin Total 0.9 mg/dL (0.2-1.3); Blood Urea Nitrogen 24 mg/dL (9-20); Calcium 9.4 mg/dL (8.4-10.2); Carbon Dioxide 24 mmol/L (22-32); Chloride 103 mmol/L (98-107); Creatine Kinase 124 U/L (55-170); Estimated Glomerular Filt Rate 59 mL/min (>60); Globulin 3.6 g/dL (1.7-4.1); Glucose 113 mg/dL (80-110); Potassium 3.7 mmol/L (3.4-5.1); Sodium 137 mmol/L (137-145); Total Protein 8.2 g/dL (6.3-8.2)
[2023-03-16 13:42] LABS: Troponin I < 0.012 ng/mL (0.01-0.034)
[2023-03-16] MEDS: ONDANSETRON 4 MG/2 ML INJ IV (13:43)
[2023-03-16 13:46] LABS: Ammonia (NH3) 10 umol/L (9-30)
[2023-03-16 14:13] LABS: HEMOLYSIS 21 (0-50); Lipase 29541 U/L (23-300)
[2023-03-16] MEDS: SODIUM CHLORIDE 0.9% 1,000 ML 1000 ML IV (14:24)
--- NOTE | 2023-03-16 14:26 | DI.CT.S_ITS ---
PROCEDURE: CT ABDOMEN PELVIS W CON INDICATIONS: pancreatitis, eval for complications TECHNIQUE: After the administration of intravenous contrast, axial sections acquired from the lung bases to the pubic symphysis. Coronal and sagittal reformats were performed. For radiation dose reduction, the following was used: automated exposure control, adjustment of mA and/or kV according to patient size. COMPARISON: None. FINDINGS: Image quality: Diagnostic. Lower Chest: Calcification of the coronary vasculature. ABDOMEN: Liver: No solid mass. Multiple hepatic cysts. Gallbladder: Calculi within the gallbladder lumen. Biliary ducts: No biliary dilation. Pancreas: Moderate peripancreatic fat stranding. Calcifications within the pancreatic head and neck. Spleen: Size is within normal limits. Adrenal Glands: No adrenal nodules. Kidneys and Ureters: No hydronephrosis. No solid mass. No complex renal cystic lesion which requires follow up. Multiple bilateral renal cysts. Stomach and Bowel: 25 mm diverticulum of the duodenum. Peritoneum: Small hiatal hernia. No abnormal intraperitoneal fluid. No free air. Normal appendix. Diverticulosis of the descending and sigmoid colon. Ventral Wall: No hernia. Abdominal Nodes: No retroperitoneal or mesenteric adenopathy by size criteria. Vessels: Aorta and inferior vena cava are normal in size. PELVIS: Pelvic Organs: Unremarkable. Bladder: Unremarkable. Pelvic Nodes: No enlarged lymph nodes. Miscellaneous: No inguinal hernias are seen. Bones: No aggressive osseous abnormality. IMPRESSION: 1. Acute pancreatitis. 2. Cholelithiasis. 3. Normal appendix. 4. Coronary artery disease. 5. Small hiatal hernia. Dictated by: Brett Torres M.D. on 03/16/2023 at 14:46 Approved by: Brett Torres M.D. on 03/16/2023 at 14:50
--- NOTE | 2023-03-16 14:53 | P.HP_ITS ---
History of Present Illness History of Present Illness Date Patient Seen: 03/16/23 Chief complaint: abd pain, sent by [place] Narrative: This patient is a 67-year-old male who presented to urgent care with abdominal pain. The pain has been going on for 2 days. The patient has history of atrial fibrillation and ablation, as well as alcohol abuse. He reports drinking 3-4 drinks every other day on the average. The patient also has chronic GERD and takes a PPI for this. He did have an upper GI in November revealing GERD and dysmotility. The patient presented with primarily epigastric and back pain. He was found to have a very elevated lipase. He also had a normal bilirubin. An ultrasound of the right upper quadrant revealed choledocholithiasis without any evidence of stones in the common bile duct or common bile duct obstruction. He has no history of pancreatitis. He does not have a history hyperlipidemia. Is currently being treated for and evaluated for chronic GERD. He has a pending EGD and colonoscopy which is scheduled for next month. His pain is different from his usual reflux associated pain. He notes that he has been having some early satiety and fullness for about 2 weeks. He developed a pain in his epigastric region 2-3 days ago which is been escalating. Last night he tried to eat 1 bite of food and then vomited. That happened again this morning. The pain is epigastric but does radiate to the back. There is no radiation of pain to the shoulder. Nothing in particular makes the pain better or worse, and he has no history of pancreatitis. He does drink 3-4 alcoholic beverages in the evening 3-4 days a week. He denies constipation or diarrhea. No blood per rectum or hematemesis. This pain does feel different from his chronic GERD pain. [facility] Medical History Colon polyps Chronic GERD History of pericarditis Family history of prostate cancer Frequent PVCs Hyperlipidemia Erectile dysfunction GERD (gastroesophageal reflux disease) Anemia Chronic low back pain Obstructive sleep apnea Chronic atrial fibrillation Well adult exam Anxiety Hypertension Surgical History H/O cardiac radiofrequency ablation Family History Mother No problems noted. Father Cancer Sister No problems noted. Social History household members: family Smoking Status: Former smoker alcohol intake: current Meds Home Medications and Allergies Home Medications Medication Instructions Recorded Confirmed Type hydrochlorothiazide 12.5 mg tablet 12.5 mg PO DAILY 02/18/22 03/16/23 History magnesium oxide 400 mg (241.3 mg 400 mg PO DAILY 02/18/22 03/16/23 History magnesium) tablet potassium chloride 10 mEq 10 meq PO DAILY 02/18/22 03/16/23 History tablet,extended release fluoxetine 20 mg capsule 20 mg PO DAILY #90 caps 05/25/22 03/16/23 Rx omeprazole 20 mg capsule,delayed 40 mg (2 x 20 mg) PO DAILY #180 11/19/22 03/16/23 Rx release caps sildenafil 100 mg tablet 100 mg PO DAILY PRN sexual 01/20/23 03/16/23 Rx activity #30 tabs aspirin 81 mg tablet,delayed 81 mg PO DAILY 01/26/23 03/16/23 History release lisinopril 30 mg tablet 30 mg PO DAILY 01/26/23 03/16/23 History metoprolol succinate 25 mg 25 mg PO BID 01/26/23 03/16/23 History tablet,extended release 24 hr Allergies Allergy/AdvReac Type Severity Reaction Status Date / Time No Known Drug Allergies Allergy Verified 02/01/23 15:44 Review of Systems Review of Systems Narrative: All else reviewed and otherwise unremarkable except as noted in history and physical. Exam Vital Signs (past 8 hours): - 03/16/23 12:30 03/16/23 14:43 Temperature 97.7 F Pulse Rate 73 62 Respiratory Rate 16 14 Blood Pressure 117/80 117/71 Pulse Oximetry 96 95 Oxygen Delivery Method Room Air Room Air Oxygen Delivery Method Room Air Narrative Exam Narrative: NAD, fluent speech and normal judgment. Normocephalic skull, EOMI, anicteric sclera. Neck is supple, normal trachea, no adenopathy, normal thyroid. Lungs are clear with normal rate and effort. Heart is regular, no murmur. Abdomen is soft, some general diffuse tenderness in the epigastric region without guarding or rebound. Extremities are free of edema with good pedal and radial pulses. Skin is free of rash or lesions. No ecchymosis. Joints are not swollen or deformed. Cranial nerves are grossly intact and motor strength is 5/5 arms and legs. No tremor. Objective Imaging CT scan - abdomen: Radiologist's impression: IMPRESSION: 1. Acute pancreatitis. 2. Cholelithiasis. 3. Normal appendix. 4. Coronary artery disease. 5. Small hiatal hernia. US - abdomen: Radiologist's impression: IMPRESSION: Cholelithiasis. No acute process. Labs 03/16/23 13:01 03/16/23 13:01 Labs: Laboratory Results - last 24 hr 03/16/23 03/16/23 13:01 13:26 WBC 10.8 RBC 4.68 Hgb 14.4 Hct 41.8 MCV 89.4 MCH 30.8 MCHC 34.4 RDW 13.2 Plt Count 222 Neut % (Auto) 74.5 Lymph % (Auto) 13.0 L [place] % (Auto) 10.5 Eos % (Auto) 1.1 L Baso % (Auto) 0.9 Neut # (Auto) 8100 H Lymph # (Auto) 1400 [place] # (Auto) 1100 H Eos # (Auto) 100 Baso # (Auto) 100 Sodium 137 Potassium 3.7 Chloride 103 Carbon Dioxide 24 BUN 24 H Creatinine 1.31 H Estimated GFR 59 L BUN/Creatinine Ratio 18.3 Glucose 113 H Calcium 9.4 Total Bilirubin 0.9 AST 30 ALT 23 Alkaline Phosphatase 71 Ammonia 10 Total Creatine Kinase 124 Troponin I < 0.012 Total Protein 8.2 Albumin 4.6 Globulin 3.6 Albumin/Globulin Ratio 1.3 Lipase 94965 H Assessment & Plan Assessment & Plan narrative: 1. Acute pancreatitis, present on admission and active. Potential etiologies include alcohol. We will check a lipid profile as well. She has choledocholithiasis been [place] [address]. 2. Alcohol abuse, present on admission and active. 3. Acute kidney injury with mildly elevated creatinine at 1.31 and a GFR of 59. Present on admission and active. 4. Chronic GERD, present on admission and stable. PLAN: -IV fluids, nothing by mouth for bowel rest. Analgesia for pain control. Monitor clinical course. -[facility] protocol, watch for evidence of alcohol-related withdrawal symptoms. He denies any typical issues with that. -monitor renal function. Patient is full resuscitation. Time Spent With Patient Time with patient: 30 to 49 minutes with 50% spent counseling/coordinating care Quality MIPS - Admit I confirm the patient?s Advance Care Plan is present, Code status is documented, Surrogate decision maker is in patient?s record [If Yes, STOP here]: Yes [facility] - Meds 'Current medications' to include all prescriptions, [id number] products, herbals, cannabis/cannabidiol products, and vitamin/mineral/dietary (nutritional) supplements. I have utilized all available resources to obtain, update, or review the patient?s current medications. [If Yes, STOP here]: Yes
[2023-03-16] MEDS: DEXTROSE 5%-0.9% NS 1,000 ML 125 ML IV (17:20)
--- NOTE | 2023-03-16 18:55 | PC.NURSE ---
Patient is A&OX4, VSS, afebrile. Patient reports mild abdominal pain upon arrival from ED. He denies N/V. He ambulates independently to bathroom and denies any dizziness. MD at bedside evaluating patient, ordered to keep NPO except sips and chips. D5 NS IVF at 100 ml/hr. CIWA score 0. Continuous monitoring.
[2023-03-16] MEDS: HEPARIN 5,000 UNIT/ML VIAL 5000 UNIT SUBCUT (20:30)
[2023-03-16] MEDS: METOPROLOL ER 25 MG TABLET PO (20:31)
[2023-03-17] MEDS: DEXTROSE 5%-0.9% NS 1,000 ML 125 ML IV ×2 (03:08→12:01)
[2023-03-17 05:00] VITALS: BP 99/64; PULSE 69; RESP 18; TEMP 36.8; O2SAT 94
[2023-03-17] MEDS: PANTOPRAZOLE DR 40 MG TABLET PO (05:09)
[2023-03-17 05:10] LABS: Add Manual Diff / Slide Review NO; Basophils Absolute Auto 0 /uL (0-100); Basophils Percent Auto 0.5 % (0-2); Eosinophils Absolute Auto 100 /uL (0-450); Eosinophils Percent Auto 1.1 % (2-4); Hematocrit 37.6 % (41-53); Hemoglobin 13.2 g/dL (13.5-17.5); Lymphocytes Absolute Auto 800 /uL (1100-4500); Lymphocytes Percent Auto 9.1 % (25-40); Mean Corpuscular HGB Conc 35.1 % (30-36); Mean Corpuscular Hemoglobin 31.3 PG (26-34); Mean Corpuscular Volume 89.2 fL (80-100); Monocytes Absolute Auto 1000 /uL (0-900); Monocytes Percent Auto 11.8 % (3-14); Neutrophils Absolute Auto 6800 /uL (1500-7000); Neutrophils Percent Auto 77.5 % (50-75); Platelet Count 163 X10^3/uL (150-400); Red Blood Cell Count 4.21 X10^6/uL (4.5-5.9); Red Cell Distribution Width 13.5 % (11.6-14.8); White Blood Cell Count 8.7 X10^3/uL (4.5-11.0)
--- NOTE | 2023-03-17 05:12 | PC.NURSE ---
CIWA score is 2 mild headache, message to hospitalist sent. Awaiting order, did not sleep well last night. He's disturbed with the noisy bed, declined to change his bed last night. Wants to change his bed this morning if he stays tonight. Will cont. POC & report to day RN.
[2023-03-17 05:20] LABS: Alanine Aminotransferase 18 IU/L (<50); Albumin 3.8 g/dL (3.5-5.0); Albumin Globulin Ratio 1.3 (1.0-2.8); Alkaline Phosphatase 56 U/L (38-126); Aspartate Aminotransferase 23 IU/L (17-59); BUN Creatinine Ratio 16.1 (6-22); Bilirubin Total 1.3 mg/dL (0.2-1.3); Blood Urea Nitrogen 19 mg/dL (9-20); Calcium 8.8 mg/dL (8.4-10.2); Carbon Dioxide 25 mmol/L (22-32); Chloride 104 mmol/L (98-107); Estimated Glomerular Filt Rate > 60 mL/min (>60); Glucose 116 mg/dL (80-110); HEMOLYSIS < 15 (0-50); Potassium 3.8 mmol/L (3.4-5.1); Sodium 136 mmol/L (137-145); Total Protein 6.8 g/dL (6.3-8.2)
[2023-03-17] MEDS: ACETAMINOPHEN 325 MG TABLET 650 MG PO (05:20)
--- NOTE | 2023-03-17 07:30 | P.PN_ITS ---
Exam Vital Signs (past 8 hours): - 03/17/23 05:00 Temperature 98.3 F Pulse Rate 69 Respiratory Rate 18 Blood Pressure 99/64 Pulse Oximetry 94 Oxygen Flow Rate 0 Oxygen Delivery Method Room Air Oxygen Flow Rate 0 Narrative Exam Narrative: NAD, fluent speech and normal judgment. Normocephalic skull, EOMI, anicteric sclera. Neck is supple, normal trachea, no adenopathy, normal thyroid. Lungs are clear with normal rate and effort. Heart is regular, no murmur. Abdomen is soft, some general diffuse tenderness in the epigastric region without guarding or rebound. Extremities are free of edema with good pedal and radial pulses. Skin is free of rash or lesions. No ecchymosis. Joints are not swollen or deformed. Cranial nerves are grossly intact and motor strength is 5/5 arms and legs. No tremor. Objective Labs 03/17/23 04:55 03/17/23 04:55 Labs: Laboratory Results - last 24 hr 03/16/23 03/16/23 03/17/23 13:01 13:26 04:55 WBC 10.8 8.7 RBC 4.68 4.21 L Hgb 14.4 13.2 L Hct 41.8 37.6 L MCV 89.4 89.2 MCH 30.8 31.3 MCHC 34.4 35.1 RDW 13.2 13.5 Plt Count 222 163 Neut % (Auto) 74.5 77.5 H Lymph % (Auto) 13.0 L 9.1 L [place] % (Auto) 10.5 11.8 Eos % (Auto) 1.1 L 1.1 L Baso % (Auto) 0.9 0.5 Neut # (Auto) 8100 H 6800 Lymph # (Auto) 1400 800 L [place] # (Auto) 1100 H 1000 H Eos # (Auto) 100 100 Baso # (Auto) 100 0 Sodium 137 136 L Potassium 3.7 3.8 Chloride 103 104 Carbon Dioxide 24 25 BUN 24 H 19 Creatinine 1.31 H 1.18 Estimated GFR 59 L > 60 BUN/Creatinine Ratio 18.3 16.1 Glucose 113 H 116 H Calcium 9.4 8.8 Total Bilirubin 0.9 1.3 AST 30 23 ALT 23 18 Alkaline Phosphatase 71 56 Ammonia 10 Total Creatine Kinase 124 Troponin I < 0.012 Total Protein 8.2 6.8 Albumin 4.6 3.8 Globulin 3.6 3.0 Albumin/Globulin Ratio 1.3 1.3 Lipase 33176 H REPLACED BY [facility] Medical History Colon polyps Chronic GERD History of pericarditis Family history of prostate cancer Frequent PVCs Hyperlipidemia Erectile dysfunction GERD (gastroesophageal reflux disease) Anemia Chronic low back pain Obstructive sleep apnea Chronic atrial fibrillation Well adult exam Anxiety Hypertension Surgical History H/O cardiac radiofrequency ablation Family History Mother No problems noted. Father Cancer Sister No problems noted. Social History household members: family Smoking Status: Former smoker alcohol intake: current Assessment & Plan Assessment & Plan narrative: 1. Acute pancreatitis, present on admission and active. Potential etiologies include alcohol. We will check a lipid profile as well. She has cholithiasis been [place] [address]. 2. Alcohol abuse, present on admission and active. 3. Acute kidney injury with mildly elevated creatinine at 1.31 and a GFR of 59. Present on admission and active. 4. Chronic GERD, present on admission and stable. PLAN: -IV fluids, nothing by mouth for bowel rest. Analgesia for pain control. Monitor clinical course. -[facility] protocol, watch for evidence of alcohol-related withdrawal symptoms. He denies any typical issues with that. -monitor renal function. Patient is full resuscitation. Time Spent With Patient Time with patient: 30 to 49 minutes with 50% spent counseling/coordinating care
[2023-03-17 08:00] VITALS: BP 119/74; PULSE 70; RESP 16; TEMP 36.8; O2SAT 93
[2023-03-17 08:40] VITALS: BP 107/70; PULSE 76
[2023-03-17] MEDS: THIAMINE 100 MG TABLET PO (08:40)
[2023-03-17] MEDS: FOLIC ACID 1 MG TABLET PO (08:40)
[2023-03-17] MEDS: POTASSIUM CHLORIDE 10 MEQ TAB PO (08:40)
[2023-03-17] MEDS: lisinopriL 10 MG TABLET 30 MG PO (08:40)
[2023-03-17] MEDS: MULTIVITAMIN 1 TABLET 1 TAB PO (08:40)
[2023-03-17] MEDS: ASPIRIN EC 81 MG TABLET PO (08:40)
[2023-03-17 08:41] VITALS: BP 107/70; PULSE 76
[2023-03-17] MEDS: HEPARIN 5,000 UNIT/ML VIAL 5000 UNIT SUBCUT (08:41)
[2023-03-17] MEDS: FLUoxetine 20 MG CAPSULE PO (08:41)
[2023-03-17] MEDS: METOPROLOL ER 25 MG TABLET PO (08:41)
[2023-03-17] MEDS: hydroCHLOROthiazide 25 MG TABLET 12.5 MG PO (08:41)
--- NOTE | 2023-03-17 10:21 | CM.DANOTE ---
Initial DCP Assessment Visit Note Reviewed EMR and team rounds for pt's medical status and initial anticipated d/c needs. Met with pt and spouse at bedside to introduce self and role, pt found to be sitting in the recliner, alert/oriented, stating he is no longer having any pain/discomfort, and is wanting to return home kofi. Spouse will transport once he's medically cleared for d/c. Pt is a 67 year-old M who presented to the ED last evening with 2-3 days of worsening abdominal pain, nausea, and an episode of vomiting. He has a PMH of Afib and ablation, and alcohol abuse. CT imaging in the ED showed acute pancreatitis and cholelithiasis. Placed in OBS, plan i IV fluids, NPO, bowel rest, and pain management. Plan for today is to advance his diet from clears to soft foods at lunch, if he does ok, then he will be medically cleared for d/c later this afternoon. No anticipated home d/c needs are identified at this time. DCP will continue to follow and assist with further needs identified throughout the day. Discharge Planning/Care Management CM Discharge Assessment Start: 03/17/23 10:20 Freq: Status: Active Protocol: Document 03/17/23 10:20 DPL (Rec: 03/17/23 10:21 DPL [id number]) Discharge Planning Assessment Assigned College Admissions Counselor RAJESH Paredes Advance Directives? No History Provided By Patient,Family Member,Medical Record Has Patient been admitted in last 30 No days? Prior Living Arrangements House Household Members family Type of transporation used prior to Drives own vehicle admit Independent with ADL's Yes Is patient alert and oriented? Yes Caregiver for Another No Comment N/A Comment No anticipated d/c needs identified at this time. Barriers to Discharge No Discharge Plan Home Transportation Arrangement Spouse Referrals Initiated None needed Whiteboard Updated in Patient Room with Yes name and ext. # of College Admissions Counselor Review Status In Process Please Provide Date Initial DC 03/17/23 Assessment Was Performed
--- NOTE | 2023-03-17 12:52 | PM.DS.1 ---
History of Present Illness History of Present Illness Date Patient Seen: 03/16/23 Chief complaint: abd pain, sent by [place] Narrative: This patient is a 67-year-old male who presented to urgent care with abdominal pain. The pain has been going on for 2 days. The patient has history of atrial fibrillation and ablation, as well as alcohol abuse. He reports drinking 3-4 drinks every other day on the average. The patient also has chronic GERD and takes a PPI for this. He did have an upper GI in November revealing GERD and dysmotility. The patient presented with primarily epigastric and back pain. He was found to have a very elevated lipase. He also had a normal bilirubin. An ultrasound of the right upper quadrant revealed choledocholithiasis without any evidence of stones in the common bile duct or common bile duct obstruction. He has no history of pancreatitis. He does not have a history hyperlipidemia. Is currently being treated for and evaluated for chronic GERD. He has a pending EGD and colonoscopy which is scheduled for next month. His pain is different from his usual reflux associated pain. He notes that he has been having some early satiety and fullness for about 2 weeks. He developed a pain in his epigastric region 2-3 days ago which is been escalating. Last night he tried to eat 1 bite of food and then vomited. That happened again this morning. The pain is epigastric but does radiate to the back. There is no radiation of pain to the shoulder. Nothing in particular makes the pain better or worse, and he has no history of pancreatitis. He does drink 3-4 alcoholic beverages in the evening 3-4 days a week. He denies constipation or diarrhea. No blood per rectum or hematemesis. This pain does feel different from his chronic GERD pain. Discharge Providers Provider Date of admission: 03/16/23 14:35 Discharge Date: 03/17/23 Primary care physician: Turner Mcgregor DO Consults: 03/16/23 16:32 Consult to Marine Engine Machinist Routine Comment: Discharge provider: Javy Pruitt DO Summary Hospital Course Discharge Diagnosis: 1. Acute pancreatitis, present on admission and active. Potential etiologies include alcohol. TG normal. Has cholelithiasis [place] [id number]. Patient also on HCTZ which can contribute to pancreatitis, although calcium level normal. HCTZ stopped. 2. Alcohol abuse, present on admission and active. 3. Acute kidney injury with mildly elevated creatinine at 1.31 and a GFR of 59. Present on admission and resolved. 4. Chronic GERD, present on admission and stable. Hospital Course: Admitted for acute NV and abd pain. Diagnosed with pancreatitis. Also BEAN which resolved. Improved over one night with NPO, IVF. Able to tolerate clear liquids then soft residue diet without symptoms. Etiology likely alcohol related. Abd US showed cholelithiasis but no evidence of biliary obstruction. Patient should consider gen surg referral for elective cholecystectomy. TG normal. Stopped his HCTZ on discharge due to link with pancreatitis. Exam Vital Signs (past 8 hours): - 03/17/23 05:00 03/17/23 08:00 03/17/23 08:00 Temperature 98.3 F 98.3 F 98.3 F Pulse Rate 69 70 70 Respiratory Rate 18 16 16 Blood Pressure 99/64 119/74 119/74 Pulse Oximetry 94 93 93 Oxygen Flow Rate 0 03/17/23 08:40 03/17/23 08:41 Temperature Pulse Rate 76 76 Respiratory Rate Blood Pressure 107/70 107/70 Pulse Oximetry Oxygen Flow Rate Oxygen Delivery Method Room Air Oxygen Flow Rate 0 Narrative Exam Narrative: NAD, fluent speech and normal judgment. Normocephalic skull, EOMI, anicteric sclera. Neck is supple, normal trachea, no adenopathy, normal thyroid. Lungs are clear with normal rate and effort. Heart is regular, no murmur. Abdomen is soft, improved tenderness Extremities are free of edema with good pedal and radial pulses. Skin is free of rash or lesions. No ecchymosis. Joints are not swollen or deformed. Cranial nerves are grossly intact and motor strength is 5/5 arms and legs. No tremor. Objective Labs 03/17/23 04:55 03/17/23 04:55 Labs: Laboratory Results - last 24 hr 03/16/23 03/16/23 03/17/23 13:01 13:26 04:55 WBC 10.8 8.7 RBC 4.68 4.21 L Hgb 14.4 13.2 L Hct 41.8 37.6 L MCV 89.4 89.2 MCH 30.8 31.3 MCHC 34.4 35.1 RDW 13.2 13.5 Plt Count 222 163 Neut % (Auto) 74.5 77.5 H Lymph % (Auto) 13.0 L 9.1 L [place] % (Auto) 10.5 11.8 Eos % (Auto) 1.1 L 1.1 L Baso % (Auto) 0.9 0.5 Neut # (Auto) 8100 H 6800 Lymph # (Auto) 1400 800 L [place] # (Auto) 1100 H 1000 H Eos # (Auto) 100 100 Baso # (Auto) 100 0 Sodium 137 136 L Potassium 3.7 3.8 Chloride 103 104 Carbon Dioxide 24 25 BUN 24 H 19 Creatinine 1.31 H 1.18 Estimated GFR 59 L > 60 BUN/Creatinine Ratio 18.3 16.1 Glucose 113 H 116 H Calcium 9.4 8.8 Total Bilirubin 0.9 1.3 AST 30 23 ALT 23 18 Alkaline Phosphatase 71 56 Ammonia 10 Total Creatine Kinase 124 Troponin I < 0.012 Total Protein 8.2 6.8 Albumin 4.6 3.8 Globulin 3.6 3.0 Albumin/Globulin Ratio 1.3 1.3 Lipase 47625 H PFS Medical History Colon polyps Chronic GERD History of pericarditis Family history of prostate cancer Frequent PVCs Hyperlipidemia Erectile dysfunction GERD (gastroesophageal reflux disease) Anemia Chronic low back pain Obstructive sleep apnea Chronic atrial fibrillation Well adult exam Anxiety Hypertension Surgical History H/O cardiac radiofrequency ablation Family History Mother No problems noted. Father Cancer Sister No problems noted. Social History household members: family Smoking Status: Former smoker alcohol intake: current Discharge Plan Discharge Plan Patient Disposition: Home Provider Discharge Comment: I've stopped your HCTZ because it is known to contribute to pancreatitis. Discharge orders & Medications Prescriptions: Continued metoprolol succinate 25 mg tablet extended release 24 hr 25 mg PO BID lisinopril 30 mg tablet 30 mg PO DAILY aspirin 81 mg tablet,delayed release (DR/EC) 81 mg PO DAILY omeprazole 20 mg capsule,delayed release(DR/EC) 40 mg PO DAILY Qty: 180 0RF sildenafil 100 mg tablet 100 mg PO DAILY PRN (Reason: sexual activity) Qty: 30 2RF Rx Instructions: administer 30 minutes to 4 hours before activity magnesium oxide 400 mg (241.3 mg magnesium) tablet 400 mg PO DAILY potassium chloride 10 mEq tablet extended release 10 meq PO DAILY fluoxetine 20 mg capsule 20 mg PO DAILY Qty: 90 3RF Discontinued hydrochlorothiazide 12.5 mg tablet 12.5 mg PO DAILY Follow up/Referrals: Turner Mcgregor, [Primary Care Provider] - 2 Weeks Visit Report/Discharge Packet Stand Alone Forms: Patient Portal/API, Stroke Signs & Symptoms Discharge Data Primary Care Provider: Turner Mcgregor
--- NOTE | 2023-03-17 14:41 | PC.NURSE ---
Patient is A&OX4, VSS on RA this a.m. He denies c/o n/v or abdominal pain. CIWA score remains 0.He tolerates a clear diet well for lunch without any GI symptoms and is advanced to a low residue diet for lunch. He tolerates this well and MD notified. He is cleared for discharge this afternoon. Patient acknowledges understanding of medication change recommendation as well as plan for follow up with PCP in 2 weeks. He is escorted by RN to ED entrance with patient's friend for discharge home in private vehicle today at 1350.
== END 2023-03-17 13:50 | disposition home or self-care (01) | DRG 439 ==
LOC: ED 14:28 → AC 14:36
PROVIDERS: Admitting Provider Hospitalist; Emergency Provider Physician Assistant; PCP Family Medicine; Referring Provider Physician Assistant; Visit Provider Hospitalist
DX: K85.20 Alcohol induced acute pancreatitis without necrosis or infection (principal); F10.188 Alcohol abuse with other alcohol-induced disorder; N17.9 Acute kidney failure, unspecified; F10.10 Alcohol abuse, uncomplicated; K21.9 Gastro-esophageal reflux disease without esophagitis; K80.50 Calculus of bile duct without cholangitis or cholecystitis without obstruction; I10 Essential (primary) hypertension; N52.9 Male erectile dysfunction, unspecified; Z87.891 Personal history of nicotine dependence; Z12.5 Encounter for screening for malignant neoplasm of prostate; D64.9 Anemia, unspecified; F41.9 Anxiety disorder, unspecified
CPT/HCPCS: 36415; 74177; 76705; 80053; 80061; 81003; 82140; 82550; 83690; 84484; 85025; 93005; 96374; 99284; G0103; J1644; J2405; Q9967

== ENCOUNTER 2023-06-14 11:34 | Day surgery (SDC) | payer MEDICARE, SELFPAY ==
[2023-03-16 16:26] VITALS: BMI 32.1
[2023-06-14] MEDS: LACTATED RINGERS 1,000 ML 42 ML IV (11:46)
[2023-06-14 12:01] VITALS: BP 162/96; PULSE 81; RESP 16; TEMP 36.6; O2SAT 96
--- NOTE | 2023-06-14 12:21 | PM.HP.1 ---
History of Present Illness History of Present Illness Date Patient Seen: 06/14/23 Time Patient Seen: 12:21 Chief complaint: EGD/Colonoscopy Narrative: 68-year-old male history of chronic GERD and pancreatitis here for esophagogastroduodenoscopy and screening colonoscopy. Last colonoscopy 8 years ago normal. No family history of intestinal malignancy. Reporting intermittent epigastric pain. [facility] Medical History Colon polyps Chronic GERD History of pericarditis Family history of prostate cancer Frequent PVCs Hyperlipidemia Erectile dysfunction GERD (gastroesophageal reflux disease) Anemia Chronic low back pain Obstructive sleep apnea Chronic atrial fibrillation Well adult exam Anxiety Hypertension Surgical History H/O cardiac radiofrequency ablation Family History Mother No problems noted. Father Cancer Sister No problems noted. Social History household members: family Smoking Status: Former smoker alcohol intake: current Meds Home Medications and Allergies Home Medications Medication Instructions Recorded Confirmed Type magnesium oxide 400 mg (241.3 mg 400 mg PO DAILY 02/18/22 06/14/23 History magnesium) tablet potassium chloride 10 mEq 10 meq PO DAILY 02/18/22 06/14/23 History tablet,extended release sildenafil 100 mg tablet 100 mg PO DAILY PRN sexual 01/20/23 06/14/23 Rx activity #30 tabs aspirin 81 mg tablet,delayed 81 mg PO DAILY 01/26/23 06/14/23 History release lisinopril 30 mg tablet 30 mg PO DAILY 01/26/23 06/14/23 History metoprolol succinate 25 mg 25 mg PO BID 01/26/23 06/14/23 History tablet,extended release 24 hr omeprazole 20 mg capsule,delayed 40 mg (2 x 20 mg) PO DAILY #180 04/15/23 06/14/23 Rx release caps Allergies Allergy/AdvReac Type Severity Reaction Status Date / Time No Known Drug Allergies Allergy Verified 06/14/23 11:47 Exam Vital Signs (past 8 hours): - 06/14/23 12:01 Temperature 97.8 F Pulse Rate 81 Respiratory Rate 16 Blood Pressure 162/96 H Pulse Oximetry 96 Oxygen Delivery Method Room Air Oxygen Delivery Method Room Air Narrative Exam Narrative: General adult man alert oriented no acute distress Chest nonlabored respiration Extremities warm well perfused Assessment & Plan Assessment and plan (1) Abdominal pain: Qualifiers: Abdominal location: epigastric Qualified Code(s): R10.13 - Epigastric pain Status: Acute (2) Chronic GERD: Status: Acute (3) Colon polyps: Qualifiers: Colon polyp type: unspecified Colon location: unspecified part of colon Qualified Code(s): K63.5 - Polyp of colon Status: Acute Assessment & Plan narrative: 68-year-old male with chronic GERD and abdominal pain here for screening esophagogastroduodenoscopy and colonoscopy. Technical details were discussed. Risks, benefits, alternatives explained. Risks including but not limited to myocardial infarction, aspiration, bleeding, pain, missed lesion, incomplete examination, need for further radiographic studies, intestinal injury, and need for major abdominal surgery were discussed. All questions were answered to their satisfaction, and they are in agreement with this plan.
[2023-06-14 12:52] VITALS: BP 136/90; PULSE 66; RESP 22; TEMP 36.2; O2SAT 96
[2023-06-14 12:57] VITALS: BP 130/87; PULSE 66; RESP 15; O2SAT 96
[2023-06-14 12:59] VITALS: BP 122/88; PULSE 68; RESP 22; TEMP 36.8; O2SAT 96
--- NOTE | 2023-06-14 12:59 | P.OP.EGD&C_ITS ---
Operative Date/Time/Diagnoses Date of procedure: 06/14/23 Time of procedure: 12:59 Pre-op diagnosis: Chronic GERD Colorectal screening Procedure & Clinicians Study performed: Esophagogastroduodenoscopy and screening colonoscopy Same procedure as scheduled: Yes Indications: Chronic GERD Abdominal pain Colorectal screening Surgeon: Robe Nur Procedure Notes Procedure in detail: The history and physical was performed/updated and the patient is ASA class is 2. The procedure was discussed in detail with the patient. Potential risks complications including infection, bleeding, missed diagnosis, perforation, need for surgery, and were explained. Their questions were answered and informed consent was obtained. Patient was brought to the procedure room and placed standard monitoring equipment. The patient's vital signs were monitored continuously throughout the entire procedure. Prior to starting time-out was performed. The patient was placed in the left lateral recumbent position. Procedural sedation was administered by anesthesia. Examination began with a thorough inspection of the perianal area there was no evidence of fissures, fistulae, external hemorrhoids or cutaneous malignancy. The colonoscopy scope was then placed into the anal canal and was advanced to the cecum, which was identified by the ileocecal valve, the appendiceal orifice and the confluence of the taenia. The scope was then slowly withdrawn examining colon thoroughly in all directions, irrigating it of any residual stool. The scope was retroflexed within the rectum The patient tolerated the procedure well. They will be discharged once criteria are met. The prep was of fair quality. The withdrawl time was 7 minutes. FINDINGS * Hiatal hernia * Normal esophagus and duodenum * No Ray's esophagus or esophageal stricture * Bustamante diverticulosis of descending colon * Internal hemorrhoids Specimen(s): none sent Impression: Hiatal hernia Post-procedure Recommendations: High fiber diet Plan for aftercare: No further colonoscopy necessary unless symptomatic Disposition: same day surgery
== END 2023-06-14 13:14 | disposition home or self-care (01) ==
PROVIDERS: PCP Family Medicine; Referring Provider Surgery; Visit Provider Surgery
PROC: 0DJ08ZZ Inspection of Upper Intestinal Tract, Via Natural or Artificial Opening Endoscopic (ICD-10-PCS; CPT 43235; principal; 2023-06-14 13:30)
PROC: 0DJD8ZZ Inspection of Lower Intestinal Tract, Via Natural or Artificial Opening Endoscopic (ICD-10-PCS; CPT 45378; 2023-06-14 13:30)
DX: Z12.11 Encounter for screening for malignant neoplasm of colon (principal); K21.9 Gastro-esophageal reflux disease without esophagitis; K44.9 Diaphragmatic hernia without obstruction or gangrene; K57.30 Diverticulosis of large intestine without perforation or abscess without bleeding; K64.8 Other hemorrhoids
CPT/HCPCS: 43235; G0121; J2704

== ENCOUNTER → 2023-12-27 08:55 | Outpatient (CLI) | payer MEDICARE, SELFPAY ==
[2023-03-16 16:26] VITALS: BMI 32.1
[2023-12-27 10:02] LABS: Add Manual Diff / Slide Review NO; Basophils Absolute Auto 100 /uL (0-100); Eosinophils Absolute Auto 100 /uL (0-450); Eosinophils Percent Auto 2.1 % (2-4); Hematocrit 39.7 % (41-53); Hemoglobin 13.8 g/dL (13.5-17.5); Lymphocytes Absolute Auto 1100 /uL (1100-4500); Lymphocytes Percent Auto 19.3 % (25-40); Mean Corpuscular HGB Conc 34.9 % (30-36); Mean Corpuscular Hemoglobin 31.3 PG (26-34); Mean Corpuscular Volume 89.8 fL (80-100); Monocytes Absolute Auto 700 /uL (0-900); Monocytes Percent Auto 11.8 % (3-14); Neutrophils Absolute Auto 3700 /uL (1500-7000); Neutrophils Percent Auto 65.8 % (50-75); Platelet Count 198 X10^3/uL (150-400); Red Blood Cell Count 4.42 X10^6/uL (4.5-5.9); White Blood Cell Count 5.6 X10^3/uL (4.5-11.0)
[2023-12-27 10:25] LABS: Hemoglobin A1C% w Est Avg Glu 5.4 % (4.0-6.0)
[2023-12-27 10:40] LABS: Alanine Aminotransferase 19 IU/L (<50); Albumin 4.2 g/dL (3.5-5.0); Albumin Globulin Ratio 1.6 (1.0-2.8); Alkaline Phosphatase 83 U/L (38-126); Aspartate Aminotransferase 24 IU/L (17-59); BUN Creatinine Ratio 15.1 (6-22); Bilirubin Total 0.9 mg/dL (0.2-1.3); Blood Urea Nitrogen 19 mg/dL (9-20); Calcium 9.2 mg/dL (8.4-10.2); Carbon Dioxide 27 mmol/L (22-32); Chloride 104 mmol/L (98-107); Estimated Glomerular Filt Rate > 60 mL/min (>60); Globulin 2.7 g/dL (1.7-4.1); Glucose 107 mg/dL (80-110); HEMOLYSIS < 15 (0-50); Potassium 4.6 mmol/L (3.4-5.1); Sodium 137 mmol/L (137-145); Total Protein 6.9 g/dL (6.3-8.2)
== END ==
PROVIDERS: PCP Family Medicine; Referring Provider Family Medicine; Visit Provider Family Medicine
DX: R10.9 Unspecified abdominal pain (principal); K85.90 Acute pancreatitis without necrosis or infection, unspecified; K21.9 Gastro-esophageal reflux disease without esophagitis; I10 Essential (primary) hypertension; R73.03 Prediabetes; Z86.79 Personal history of other diseases of the circulatory system
CPT/HCPCS: 36415; 80053; 83036; 85025

== ENCOUNTER → 2024-04-03 09:43 | Outpatient (CLI) | payer MEDICARE, SELFPAY ==
[2023-03-16 16:26] VITALS: BMI 32.1
[2024-04-03 09:55] LABS: Appearance Urine UA CLEAR; Bilirubin Urine UA NEGATIVE (NEGATIVE); Color Urine UA YELLOW; Glucose Urine UA NEGATIVE (Negative); Ketones Urine UA NEGATIVE (NEGATIVE); Leukocyte Esterase Urine UA NEGATIVE (NEGATIVE); Nitrite Urine UA NEGATIVE (Negative); Occult Blood Urine UA NEGATIVE (Negative); Protein Urine UA TRACE (Negative)
[2024-04-03 09:59] LABS: Bacteria Urine None Seen; Culture Indicated Urine Cult Not Indicated; RBC Urine None Seen (0-5/HPF); Squamous Epithelial Cell Urine None Seen (0-5/HPF); Urine Volume 10mL (spun); WBC Urine None Seen (0-5/HPF)
== END ==
PROVIDERS: PCP Family Medicine; Visit Provider Student in an Organized Health Care Education/Training Program
DX: R10.9 Unspecified abdominal pain (principal); R30.0 Dysuria
CPT/HCPCS: 81001; 87086

== ENCOUNTER → 2024-04-11 14:49 | Outpatient (CLI) | payer MEDICARE, SELFPAY ==
[2023-03-16 16:26] VITALS: BMI 32.1
--- NOTE | 2024-04-11 14:50 | DI.RAD.S_ITS ---
PROCEDURE: XR LUMBAR SPINE 2-3V INDICATIONS: back pain x 1 mo, L>R TECHNIQUE: 3 views of the lumbar spine were acquired. COMPARISON: None. FINDINGS: Mild osseous demineralization. Five non rib-bearing lumbar vertebrae are present. The vertebral body heights are preserved. Mild intervertebral disc height loss at L4-L5 and L5-S1. The lumbar lordosis is preserved. Mild-moderate multilevel facet arthropathy, most conspicuous at L4-L5 and L5-S1. Vascular calcifications at the level of the pelvis. The visualized sacroiliac joints are within normal limits. IMPRESSION: Mild-moderate multilevel facet arthropathy, most conspicuous at L4-L5 and L5-S1. No acute radiographic abnormality. Dictated by: Sp Tucker M.D. on 04/12/2024 at 13:36 Approved by: Sp Tucker M.D. on 04/12/2024 at 13:38
[2024-04-11 16:04] LABS: Add Manual Diff / Slide Review NO; Basophils Absolute Auto 0 /uL (0-100); Basophils Percent Auto 0.7 % (0-2); Eosinophils Absolute Auto 200 /uL (0-450); Eosinophils Percent Auto 3.3 % (2-4); Hematocrit 39.6 % (41-53); Hemoglobin 13.5 g/dL (13.5-17.5); Lymphocytes Absolute Auto 1600 /uL (1100-4500); Lymphocytes Percent Auto 24.6 % (25-40); Mean Corpuscular HGB Conc 34.1 % (30-36); Mean Corpuscular Hemoglobin 30.7 PG (26-34); Mean Corpuscular Volume 89.8 fL (80-100); Monocytes Absolute Auto 700 /uL (0-900); Monocytes Percent Auto 10.7 % (3-14); Neutrophils Absolute Auto 3900 /uL (1500-7000); Neutrophils Percent Auto 60.7 % (50-75); Platelet Count 246 X10^3/uL (150-400); Red Cell Distribution Width 13.5 % (11.6-14.8); White Blood Cell Count 6.4 X10^3/uL (4.5-11.0)
[2024-04-11 16:26] LABS: Alanine Aminotransferase 22 IU/L (<50); Albumin 4.5 g/dL (3.5-5.0); Albumin Globulin Ratio 1.6 (1.0-2.8); Alkaline Phosphatase 76 U/L (38-126); Aspartate Aminotransferase 26 IU/L (17-59); BUN Creatinine Ratio 14.8 (6-22); Bilirubin Total 0.5 mg/dL (0.2-1.3); Blood Urea Nitrogen 19 mg/dL (9-20); Calcium 9.4 mg/dL (8.4-10.2); Carbon Dioxide 26 mmol/L (22-32); Chloride 105 mmol/L (98-107); Estimated Glomerular Filt Rate > 60 mL/min (>60); Globulin 2.8 g/dL (1.7-4.1); Glucose 94 mg/dL (80-110); HEMOLYSIS < 15 (0-50); Potassium 4.2 mmol/L (3.4-5.1); Sodium 140 mmol/L (137-145); Total Protein 7.3 g/dL (6.3-8.2)
[2024-04-11 16:59] LABS: Prostate Specific Antigen Scrn 2.27 ng/mL (0.1-4.0)
== END ==
PROVIDERS: PCP Family Medicine; Referring Provider Physician Assistant; Visit Provider Physician Assistant
DX: M47.816 Spondylosis without myelopathy or radiculopathy, lumbar region (principal); M47.817 Spondylosis without myelopathy or radiculopathy, lumbosacral region; M54.50 Low back pain, unspecified; Z12.5 Encounter for screening for malignant neoplasm of prostate
CPT/HCPCS: 36415; 72100; 80053; 85025; G0103

== ENCOUNTER 2024-04-13 10:21 | Emergency (ER) | payer MEDICARE, SELFPAY ==
[2023-03-16 16:26] VITALS: BMI 32.1
[2024-04-13] VITALS (30 sets, daily range): BP systolic 171–191; BP diastolic 81–111; PULSE 54–72; RESP 16–24; TEMP 37; O2SAT 94–99; BMI 33.5
--- NOTE | 2024-04-13 11:01 | EKG_ITS ---
[address] [address] Test Date: 2024-04-13 Pat Name: Govind Gillespie Department: [facility] Room: Gender: Male Environmental Conflict Manager: RACHEL : 1955 Requested By: Order Number: [id number] Reading MD: Ronny Rome Measurements Intervals [place] Rate: 56 P: 29 WI: 190 QRS: -27 QRSD: 114 T: 35 QT: 434 QTc: 418 Interpretive Statements Sinus bradycardia Incomplete right bundle branch block Electronically Signed On 04-15-2024 18:56:10 PST by Ronny Rome
--- NOTE | 2024-04-13 11:12 | ED_ITS ---
HPI - General Adult General Chief complaint: Hypertension Stated complaint: High blood pressure Time Seen by Provider: 04/13/24 10:45 Source: patient Mode of arrival: Ambulatory History of Present Illness HPI narrative: Patient here for elevated blood pressure for the past 2 days. Patient just saw his primary care 2 days ago and had normal blood pressure in the office. He is on metoprolol but no blood thinners for atrial fibrillation. His application security engineer, Dr. Betancur, took him off blood thinners a year ago. Patient has had off and on back pain for over a month. Had x-rays for this. Seen by urgent care and his primary care for this problem. It is improving. He declined physical therapy by primary care 2 days ago. Denies any chest pain or abdominal pain. No prior history of heart attack stroke or aortic aneurysm or dissection. No numbness tingling or weakness of the arms or legs. Blood pressure has gone up as high as 205 systolic and diastolic of 110. He was at the dentist's office yesterday and it was elevated. He has not had any changes in his medication for blood pressure. Related Data Home Medications Medication Instructions Recorded Confirmed magnesium oxide 400 mg (241.3 mg 400 mg PO DAILY 02/18/22 04/11/24 magnesium) tablet potassium chloride 10 mEq 10 meq PO DAILY 02/18/22 04/11/24 tablet,extended release aspirin 81 mg tablet,delayed 81 mg PO DAILY 01/26/23 04/11/24 release metoprolol succinate 25 mg 25 mg PO BID 01/26/23 04/11/24 tablet,extended release 24 hr Previous Rx's Medication Instructions Recorded omeprazole 20 mg capsule,delayed 40 mg (2 x 20 mg) PO DAILY #180 07/14/23 release caps sildenafil 100 mg tablet 100 mg PO DAILY PRN sexual 11/28/23 activity #30 tabs valacyclovir 1 gram tablet 1,000 mg PO DAILY #21 tabs 12/27/23 (Valtrex) cyclobenzaprine 10 mg tablet 10 mg PO TID PRN muscle spasm #30 04/11/24 tabs lisinopril 40 mg tablet 40 mg PO DAILY #30 tabs 04/13/24 Allergies Allergy/AdvReac Type Severity Reaction Status Date / Time No Known Drug Allergies Allergy Verified 04/11/24 14:11 Review of Systems Review of Systems Narrative: GENERAL: Negative chills, fatigue, malaise, fever, sweats. HEENT: Negative sinus pain, ear pain, sore throat RESPIRATORY: Negative dyspnea, cough CARDIOVASCULAR: Negative chest pain, palpitations GASTROINTESTINAL: Negative nausea, vomiting, abdominal pain : Negative dysuria, frequency, hematuria MUSCULOSKELETAL: Negative muscle or bony pain SKIN: Negative rash, skin lesions NEUROLOGIC: Negative weakness, numbness ROS Unobtainable: All systems reviewed & are unremarkable except as noted in HPI and below Patient History Medical History History of atrial flutter Pre-diabetes Colon polyps Chronic GERD History of pericarditis Family history of prostate cancer Frequent PVCs Hyperlipidemia Erectile dysfunction GERD (gastroesophageal reflux disease) Anemia Chronic low back pain Obstructive sleep apnea Chronic atrial fibrillation Well adult exam Anxiety Hypertension Surgical History H/O cardiac radiofrequency ablation Family History Mother No problems noted. Father Cancer Sister No problems noted. Social History household members: family Smoking Status: Former smoker alcohol intake: current Smoking Status: Former smoker alcohol intake frequency: 0-2 drinks per day Exam Narrative Exam Narrative: GENERAL: in no distress, not toxic not dyspneic HEAD: Normocephalic. EYES: Pupils equal round ENT: Mucous membranes moist. NECK: Trachea midline. CARDIOVASCULAR: Regular rate and rhythm, strong heart sounds, no murmur RESPIRATORY: Clear to auscultation. Breath sounds equal bilaterally. No wheezes, rales, or rhonchi. GASTROINTESTINAL: Abdomen soft, non-tender no peritoneal signs no pain out of portion exam. No CVA tenderness. EXTREMITIES: No gross deformities. BACK: No flank tenderness. NEURO: AOx4. 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 SKIN: Warm and dry PSYCH: Not anxious, is cooperative Initial Vital Signs Initial Vital Signs: Vital Signs Pulse Rate 63 04/13/24 10:40 Pulse Oximetry 98 04/13/24 10:40 Course Orders Ordered: Discontinued Medications Hydralazine HCl (Hydralazine 20 Mg/Ml Vial) 10 mg IV NOW ONE Stop: 04/13/24 12:38 Last Admin: 04/13/24 12:46 Dose: 10 mg Documented By: SHAYY Lisinopril (Lisinopril 20 Mg Tablet) 40 mg PO NOW ONE Stop: 04/13/24 13:44 Last Admin: 04/13/24 13:58 Dose: 40 mg Documented By: SHAYY Sodium Chloride (Sodium Chloride 0.9% Flush) 50 ml IV NOW ONE Stop: 04/13/24 11:13 Last Admin: 04/13/24 11:33 Dose: 50 ml Documented By: SHAYY Vital Signs Vital signs: Vital Signs - 8 hr 04/13/24 10:40 04/13/24 10:41 04/13/24 10:42 Temperature 98.6 F Pulse Rate 63 63 65 Respiratory Rate 18 16 Blood Pressure 191/111 H Pulse Oximetry 98 96 96 Oxygen Delivery Method Room Air 04/13/24 10:45 04/13/24 10:50 04/13/24 10:55 Temperature Pulse Rate 62 57 L 59 L Respiratory Rate 16 Blood Pressure Pulse Oximetry 96 95 94 Oxygen Delivery Method 04/13/24 11:00 04/13/24 11:01 04/13/24 11:01 Temperature Pulse Rate 60 59 L Respiratory Rate 23 18 Blood Pressure 179/102 H Pulse Oximetry 96 95 Oxygen Delivery Method 04/13/24 11:05 04/13/24 11:10 04/13/24 11:15 Temperature Pulse Rate 58 L 60 56 L Respiratory Rate 23 19 24 Blood Pressure Pulse Oximetry 97 97 95 Oxygen Delivery Method 04/13/24 11:20 04/13/24 11:30 04/13/24 11:32 Temperature Pulse Rate 58 L 70 Respiratory Rate 22 Blood Pressure 187/105 H Pulse Oximetry 96 97 Oxygen Delivery Method 04/13/24 11:32 04/13/24 11:35 04/13/24 11:40 Temperature Pulse Rate 65 66 72 Respiratory Rate Blood Pressure Pulse Oximetry 96 98 97 Oxygen Delivery Method 04/13/24 11:45 04/13/24 11:50 04/13/24 11:55 Temperature Pulse Rate 62 58 L 54 L Respiratory Rate 21 18 Blood Pressure Pulse Oximetry 96 95 96 Oxygen Delivery Method Room Air 04/13/24 12:00 04/13/24 12:00 04/13/24 12:05 Temperature Pulse Rate 54 L 56 L Respiratory Rate 17 23 Blood Pressure 174/91 H Pulse Oximetry 96 96 Oxygen Delivery Method 04/13/24 12:10 04/13/24 12:15 04/13/24 12:20 Temperature Pulse Rate 55 L 55 L 64 Respiratory Rate 19 20 24 Blood Pressure Pulse Oximetry 96 96 97 Oxygen Delivery Method 04/13/24 12:25 04/13/24 12:46 04/13/24 13:00 Temperature Pulse Rate 66 58 L 62 Respiratory Rate Blood Pressure 188/102 H 174/81 H Pulse Oximetry 99 Oxygen Delivery Method 04/13/24 13:20 04/13/24 13:24 Temperature Pulse Rate 59 L Respiratory Rate Blood Pressure 180/93 H 180/93 H Pulse Oximetry Oxygen Delivery Method Medical Decision Making Lab Data 04/13/24 11:22 04/13/24 11:22 Labs: Lab Results 04/13/24 Range/Units 11:22 WBC 5.9 (4.5-11.0) X10^3/uL RBC 4.40 L (4.5-5.9) X10^6/uL Hgb 13.4 L (13.5-17.5) g/dL Hct 38.9 L (41-53) % MCV 88.3 (80-100) fL MCH 30.6 (26-34) PG MCHC 34.6 (30-36) % RDW 13.1 (11.6-14.8) % Plt Count 246 (150-400) X10^3/uL Neut % (Auto) 66.4 (50-75) % Lymph % (Auto) 19.7 L (25-40) % [place] % (Auto) 10.2 (3-14) % Eos % (Auto) 2.7 (2-4) % Baso % (Auto) 1.0 (0-2) % Neut # (Auto) 3900 (1628-5131) /uL Lymph # (Auto) 1200 (5961-9664) /uL [place] # (Auto) 600 (0-900) /uL Eos # (Auto) 200 (0-450) /uL Baso # (Auto) 100 (0-100) /uL Sodium 138 (137-145) mmol/L Potassium 4.2 (3.4-5.1) mmol/L Chloride 102 (98-107) mmol/L Carbon Dioxide 28 (22-32) mmol/L BUN 15 (9-20) mg/dL Creatinine 1.11 (0.66-1.25) mg/dL Estimated GFR > 60 (>60) mL/min BUN/Creatinine Ratio 13.5 (6-22) Glucose 95 (80-110) mg/dL Calcium 8.9 (8.4-10.2) mg/dL Total Bilirubin 0.6 (0.2-1.3) mg/dL AST 28 (17-59) IU/L ALT 22 (<50) IU/L Alkaline Phosphatase 71 (38-126) U/L Total Creatine Kinase 56 (55-170) U/L Troponin I < 0.012 (0.01-0.034) ng/mL Total Protein 7.4 (6.3-8.2) g/dL Albumin 4.4 (3.5-5.0) g/dL Globulin 3.0 (1.7-4.1) g/dL Albumin/Globulin Ratio 1.5 (1.0-2.8) Imaging Data CT angio chest abdomen and pelvis: Radiologist's Impression: [place] [address] CT Scan Report Signed Patient: Govind Gillespie MR#: [id number] : 1955 Acct:[id number] Age/Sex: 68 / M Date of Service: 04/13/24 Loc: ED Accession Number: [id number] Procedure: CT angio chest abdomen pelvis Ordering Provider: Shayne Starkey MD PROCEDURE: CT ANGIO CHEST ABDOMEN PELVIS INDICATIONS: Back pain TECHNIQUE: Precontrast 5 mm thick sections acquired from the lung apices to the iliac crests. After the administration of intravenous contrast, 2.5 mm thick sections again acquired from the lung apices to the iliac crests. Maximum intensity projection (MIP) oblique sagittal and coronal reformats were then acquired. For radiation dose reduction, the following was used: automated exposure control. COMPARISON: None. FINDINGS: Image quality: Diagnostic. AORTA and its attachments: Ascending and descending thoracic aorta and abdominal aorta are of normal caliber without aneurysm or dissection or significant stenosis. Classic three-vessel arch anatomy. Great vessel origins are widely patent. SMA, celiac, and JENNIFER are widely patent. Bilateral common iliacs and external iliacs are widely patent. Common femorals are widely patent. CHEST: Lower Neck: No enlarged lymph nodes. Thyroid: No thyroid nodules which require sonographic evaluation. Axillae: No enlarged lymph nodes. Chest Wall: Unremarkable. Lungs and Pleura: No pneumothorax or pleural effusions. No consolidation or suspicious nodules. Heart: Heart size is normal. No pericardial effusion. Thoracic Vessels: Pulmonary arteries demonstrate normal size. Mediastinum and [place]: No enlarged lymph nodes. Esophagus: No wall thickening. No hiatal hernia. ABDOMEN: Liver: No solid mass. Multiple somewhat prominent benign-appearing cysts in the left lobe of the liver. Gallbladder: Contracted gallbladder around calcified gallstones. Biliary ducts: No biliary dilation. Pancreas: No ductal dilation. Spleen: Size is within normal limits. Adrenal Glands: No adrenal nodules. Kidneys and Ureters: No hydronephrosis. No solid mass. No complex renal cystic lesion which requires follow up. Numerous bilateral renal simple cysts, some of which are prominent. These are benign cysts. No hydronephrosis. Punctate 2 mm non- obstructing lower pole left renal stone. Stomach and Bowel: Normal colonic caliber, without significant wall thickening. Normal appendix. Sigmoid diverticulosis without evidence of acute diverticulitis. Peritoneum: No abnormal intraperitoneal fluid. No free air. Ventral Wall: No hernia. Abdominal Nodes: No retroperitoneal or mesenteric adenopathy by size criteria. Vessels: Inferior vena cava is normal in size. PELVIS: Pelvic Organs: Prostatomegaly.. Bladder: Unremarkable. Pelvic Nodes: No enlarged lymph nodes. Miscellaneous: No inguinal hernias are seen. Bones: No aggressive osseous lesion. No compression fractures. IMPRESSION: 1. Unremarkable thoracic and abdominal aorta and its attachments. 2. No acute process in the chest. 3. Cholelithiasis. 4. Note made of multiple left lobe liver cyst and multiple bilateral sizable the benign renal cysts. 5. Punctate nonobstructing left lower pole renal stone. 6. Sigmoid diverticulosis. 7. Prostatomegaly. Dictated by: Ranjan Banks M.D. on 04/13/2024 at 11:39 Approved by: Ranjan Banks M.D. on 04/13/2024 at 11:46 MDM Narrative Medical decision making narrative: Patient here for elevated blood pressure for the past 2 days. Patient just saw his primary care 2 days ago and had normal blood pressure in the office. He is on metoprolol but no blood thinners for atrial fibrillation. His application security engineer, Dr. Betacnur, took him off blood thinners a year ago. Patient has had off and on back pain for over a month. Had x-rays for this. Seen by urgent care and his primary care for this problem. It is improving. He declined physical therapy by primary care 2 days ago. Denies any chest pain or abdominal pain. No prior history of heart attack stroke or aortic aneurysm or dissection. No numbness tingling or weakness of the arms or legs. Blood pressure has gone up as high as 205 systolic and diastolic of 110. He was at the dentist's office yesterday and it was elevated. He has not had any changes in his medication for blood pressure. After history and exam, CBC CMP troponin EKG CT angio chest abdomen pelvis [facility] Medical records reviewed: Primary care office 2 days ago Differential considered: Includes but not limited to aortic dissection aneurysm essential hypertension Lab Test results independently reviewed as above. Pertinent findings: WBC 5.9 hemoglobin 13.4 sodium 138 potassium 4.2 troponin less than 0.012 Independently reviewed EKG sinus bradycardia rate 56 Imaging studies independently reviewed: CT angio chest abdomen pelvis no acute finding Consultations: 12:15 p.m.. Spoke with Cardiology, Dr. Ennis, with [facility]. He reviewed patient's chart with their cardiology office visit in January of last year. Patient is supposed to be on lisinopril 30 mg daily. He can start with 40 mg today. He would like patient to have hydralazine 10 mg IV now. Since patient just acutely changed blood pressure less than 40 hours we can lower back to his normal blood pressure level. Treatments: Hydralazine, lisinopril Re-evaluations: 1:00 p.m.. Updated patient that he was supposed to be on lisinopril, he does not recall who took it off of him or he may have taken himself off of it. But will resume it. Discussion: Appropriate for discharge home exam is reassuring. Return precautions reviewed with patient. Uncertain source of patient's sudden change in blood pressure but exam and laboratory studies imaging studies are reassuring. Cardiology service was contacted and consulted for medication recommendations and has been started. Return precautions reviewed. Patient desires discharge home. Diagnosis: Hypertension Discharge Plan Departure Patient Disposition: Home Clinical Impression: Hypertension Qualifiers: Hypertension type: unspecified Qualified Code(s): I10 - Essential (primary) hypertension Instructions: DI for High Blood Pressure Activity Restrictions/Additional Instructions: Please see your family doctor and your application security engineer next week for re-evaluation your blood pressure. Prescription for lisinopril has been provided for you to restart and continue tomorrow. Return if worse if any questions or concerns. Your laboratory studies imaging studies are reassuring today. Prescriptions: New lisinopril 40 mg tablet 40 mg PO DAILY Qty: 30 0RF No Action metoprolol succinate 25 mg tablet extended release 24 hr 25 mg PO BID aspirin 81 mg tablet,delayed release (DR/EC) 81 mg PO DAILY omeprazole 20 mg capsule,delayed release(DR/EC) 40 mg PO DAILY Qty: 180 3RF sildenafil 100 mg tablet 100 mg PO DAILY PRN (Reason: sexual activity) Qty: 30 2RF Rx Instructions: administer 30 minutes to 4 hours before activity magnesium oxide 400 mg (241.3 mg magnesium) tablet 400 mg PO DAILY potassium chloride 10 mEq tablet extended release 10 meq PO DAILY valacyclovir [Valtrex] 1 gram tablet 1,000 mg PO DAILY Qty: 21 2RF cyclobenzaprine 10 mg tablet 10 mg PO TID PRN (Reason: muscle spasm) Qty: 30 0RF Referrals: Turner Mcgregor DO [Primary Care Provider] - Stand Alone Forms: Patient Portal/API/Survey
[2024-04-13 11:28] LABS: Add Manual Diff / Slide Review NO; Basophils Absolute Auto 100 /uL (0-100); Eosinophils Absolute Auto 200 /uL (0-450); Eosinophils Percent Auto 2.7 % (2-4); Hematocrit 38.9 % (41-53); Hemoglobin 13.4 g/dL (13.5-17.5); Lymphocytes Absolute Auto 1200 /uL (1100-4500); Lymphocytes Percent Auto 19.7 % (25-40); Mean Corpuscular HGB Conc 34.6 % (30-36); Mean Corpuscular Hemoglobin 30.6 PG (26-34); Mean Corpuscular Volume 88.3 fL (80-100); Monocytes Absolute Auto 600 /uL (0-900); Monocytes Percent Auto 10.2 % (3-14); Neutrophils Absolute Auto 3900 /uL (1500-7000); Neutrophils Percent Auto 66.4 % (50-75); Platelet Count 246 X10^3/uL (150-400); Red Cell Distribution Width 13.1 % (11.6-14.8); White Blood Cell Count 5.9 X10^3/uL (4.5-11.0)
[2024-04-13] MEDS: SODIUM CHLORIDE 0.9% FLUSH 50 ML IV (11:33)
[2024-04-13 11:44] LABS: Alanine Aminotransferase 22 IU/L (<50); Albumin 4.4 g/dL (3.5-5.0); Albumin Globulin Ratio 1.5 (1.0-2.8); Alkaline Phosphatase 71 U/L (38-126); Aspartate Aminotransferase 28 IU/L (17-59); BUN Creatinine Ratio 13.5 (6-22); Bilirubin Total 0.6 mg/dL (0.2-1.3); Blood Urea Nitrogen 15 mg/dL (9-20); Calcium 8.9 mg/dL (8.4-10.2); Carbon Dioxide 28 mmol/L (22-32); Chloride 102 mmol/L (98-107); Creatine Kinase 56 U/L (55-170); Estimated Glomerular Filt Rate > 60 mL/min (>60); Glucose 95 mg/dL (80-110); HEMOLYSIS < 15 (0-50); Potassium 4.2 mmol/L (3.4-5.1); Sodium 138 mmol/L (137-145); Total Protein 7.4 g/dL (6.3-8.2)
[2024-04-13 11:56] LABS: Troponin I < 0.012 ng/mL (0.01-0.034)
[2024-04-13] MEDS: HYDRALAZINE 20 MG/ML VIAL 10 MG IV (12:46)
[2024-04-13] MEDS: lisinopriL 20 MG TABLET 40 MG PO (13:58)
== END 2024-04-13 14:11 | disposition home or self-care (01) ==
PROVIDERS: Emergency Provider Emergency Medicine; PCP Family Medicine
DX: I10 Essential (primary) hypertension (principal)
CPT/HCPCS: 36415; 71275; 74174; 80053; 82550; 84484; 85025; 93005; 96374; 96375; 99284; J0360; Q9967

== ENCOUNTER → 2024-08-15 17:49 | Outpatient (CLI) | payer MEDICARE, SELFPAY ==
[2023-03-16 16:26] VITALS: BMI 32.1
== END ==
PROVIDERS: PCP Family Medicine; Visit Provider Nurse Practitioner Family
DX: J02.9 Acute pharyngitis, unspecified (principal)
CPT/HCPCS: 87070

== ENCOUNTER → 2024-11-05 08:12 | Outpatient (CLI) | payer MEDICARE, SELFPAY ==
[2023-03-16 16:26] VITALS: BMI 32.1
[2024-11-05 09:35] LABS: Alanine Aminotransferase 20 IU/L (<50); Albumin 4.5 g/dL (3.5-5.0); Albumin Globulin Ratio 1.5 (1.0-2.8); Alkaline Phosphatase 78 U/L (38-126); Blood Urea Nitrogen 17 mg/dL (9-20); Calcium 9.5 mg/dL (8.4-10.2); Carbon Dioxide 26 mmol/L (22-32); Chloride 103 mmol/L (98-107); Cholesterol 179 mg/dL (140-199); Estimated Glomerular Filt Rate > 60 mL/min (>60); Globulin 3.0 g/dL (1.7-4.1); Glucose 106 mg/dL (70-99); HDL Cholesterol 33 mg/dL (40-60); HEMOLYSIS < 15 (0-50); Potassium 4.8 mmol/L (3.4-5.1); Sodium 139 mmol/L (137-145); Total Protein 7.5 g/dL (6.3-8.2); Triglycerides 144 mg/dL (35-150)
== END ==
PROVIDERS: PCP Family Medicine; Referring Provider Family Medicine; Visit Provider Family Medicine
DX: I10 Essential (primary) hypertension (principal); Z12.5 Encounter for screening for malignant neoplasm of prostate; Z00.00 Encounter for general adult medical examination without abnormal findings
CPT/HCPCS: 36415; 80053; 80061; G0103

== ENCOUNTER 2024-11-27 09:14 | Emergency (ER) | payer MEDICARE, SELFPAY ==
[2023-03-16 16:26] VITALS: BMI 32.1
[2024-11-27] VITALS (16 sets, daily range): BP systolic 151–219; BP diastolic 80–107; PULSE 54–78; RESP 16–39; TEMP 36.4; O2SAT 92–96; BMI 31.5
--- NOTE | 2024-11-27 09:24 | EKG_ITS ---
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
--- NOTE | 2024-11-27 09:24 | DI.RAD.S_ITS ---
PROCEDURE: XR CHEST 1V INDICATIONS: Chest Pain TECHNIQUE: One view of the chest was acquired. COMPARISON: [facility], CR, XR CHEST 1V, 11/18/2021, 11:50. FINDINGS: Surgical changes and devices: None. Lungs and pleura: Mild pulmonary vascular congestion. No definite focal infiltrate. No pleural effusions or pneumothorax. Mediastinum: Mediastinal contours appear normal. Heart size is enlarged. Bones and chest wall: No suspicious bony lesions. Overlying soft tissues appear unremarkable. IMPRESSION: Mild cardiomegaly and mild pulmonary vascular congestion. No definite focal infiltrate. No pleural effusion or pneumothorax. Dictated by: Taqueria Ennis M.D. on 11/27/2024 at 9:41 Approved by: Taqueria Ennis M.D. on 11/27/2024 at 9:43
--- NOTE | 2024-11-27 09:29 | ED.ARRPALP ---
HPI - Arrhythmia/Palpitations General Chief Complaint: Arrhythmia/Palpitations Stated Complaint: Per patient , Heart is beating weird Time Seen by Provider: 11/27/24 09:29 Source: patient Mode of arrival: Ambulatory History of Present Illness HPI narrative: Patient is a 69-year-old male history of hypertension presenting today with heart palpitations. He says for awhile he has noticed that his heart feels like it slows way down passes out but really does not. He just feels it and it happened this morning he decided to come get checked. No significant chest pain no shortness of breath. No abdominal pain nausea or vomiting. He has had AFib and ablation in the past he sees Dr. Betancur. Related Data Home Medications ?Medication ?Instructions ?Recorded ?Confirmed magnesium oxide 400 mg (241.3 mg 400 mg PO DAILY 02/18/22 11/06/24 magnesium) tablet potassium chloride 10 mEq 10 meq PO DAILY 02/18/22 11/06/24 tablet,extended release aspirin 81 mg tablet,delayed 81 mg PO DAILY 01/26/23 11/06/24 release metoprolol succinate 25 mg 25 mg PO BEDTIME 11/06/24 11/06/24 tablet,extended release 24 hr Previous Rx's ?Medication ?Instructions ?Recorded sildenafil 100 mg tablet 100 mg PO DAILY PRN sexual 11/28/23 activity #30 tabs valacyclovir 1 gram tablet 1,000 mg PO DAILY #21 tabs 12/27/23 (Valtrex) lisinopril 40 mg tablet 40 mg PO DAILY #90 tabs 06/11/24 omeprazole 10 mg capsule,delayed 10 mg PO DAILY #90 caps 11/06/24 release Allergies Allergy/AdvReac Type Severity Reaction Status Date / Time No Known Drug Allergies Allergy Verified 11/27/24 09:24 Patient History Medical History History of atrial fibrillation Borderline hyperlipidemia BPH (benign prostatic hyperplasia) Medicare annual wellness visit, subsequent Alcohol abuse with other alcohol-induced disorder Chronic atrial fibrillation History of atrial flutter Pre-diabetes Colon polyps Chronic GERD History of pericarditis Family history of prostate cancer Frequent PVCs Hyperlipidemia Erectile dysfunction GERD (gastroesophageal reflux disease) Anemia Chronic low back pain Obstructive sleep apnea Well adult exam Anxiety Hypertension Surgical History H/O cardiac radiofrequency ablation Family History Mother No problems noted. Father Cancer Sister No problems noted. Social History household members: family Smoking Status: Unknown if ever smoked alcohol intake: current Smoking Status: Unknown if ever smoked alcohol intake frequency: 0-2 drinks per day Exam Initial Vital Signs Initial Vital Signs: Vital Signs Temperature 97.6 F 11/27/24 09:18 Pulse Rate 72 11/27/24 09:18 Respiratory Rate 17 11/27/24 09:18 Blood Pressure 219/107 H 11/27/24 09:18 Pulse Oximetry 95 11/27/24 09:18 Oxygen Delivery Method Room Air 11/27/24 09:18 GENERAL: [Well-appearing, well-nourished] and in [no acute] distress. HEENT: Head atraumatic,EOMI, pupils reactive, face symmetric, [moist] mucous membranes CARDIOVASCULAR: Regular rate and rhythm without murmurs, rubs or gallops. RESPIRATORY: Breath sounds equal bilaterally, no wheezes rales or rhonchi. ABDOMEN: Soft, nontender. Normoactive bowel sounds all 4 quadrants. No guarding or rebound. : No CVA tenderness EXTREMITIES: Normal range of motion, no clubbing or edema. Neurovascularly intact NEUROLOGICAL: Alert and oriented x4.Normal gait and speech. Cranial nerves II through XII grossly intact. SKIN: Warm, dry, no laceration, no petechiae, no rashes or lesions. Course Orders Ordered: ED Orders 11/27/24 09:24 XR chest 1V Stat EKG-12 Lead Stat 11/27/24 09:30 Complete Blood Count AUTO DIFF Stat Comprehensive Metabolic Panel Stat Lipase Stat Magnesium Stat NT-proBNP (BNP-Adult 18+) Stat PTT Partial Thromboplastin Billy Stat Prothrombin Time INR Stat Troponin & CK Cardiac Panel Stat Discontinued Medications Aspirin (Aspirin 81 Mg Chew Tab) 324 mg PO NOW ONE Stop: 11/27/24 09:25 Last Admin: 11/27/24 09:37 Dose: 324 mg Documented By: BELLA Metoprolol Tartrate (Metoprolol Tartrate 5 Mg/5 Ml Inj) 5 mg IV NOW ONE Stop: 11/27/24 11:02 Last Admin: 11/27/24 11:22 Dose: 5 mg Documented By: BELLA Vital Signs Vital signs: Vital Signs - 8 hr 11/27/24 09:18 11/27/24 09:20 11/27/24 09:22 Temperature 97.6 F Pulse Rate 72 78 71 Respiratory Rate 17 30 H Blood Pressure 219/107 H Pulse Oximetry 95 96 94 Oxygen Delivery Method Room Air 11/27/24 09:22 11/27/24 09:30 11/27/24 09:31 Temperature Pulse Rate 67 69 Respiratory Rate 23 39 H Blood Pressure 219/107 H Pulse Oximetry 94 92 Oxygen Delivery Method 11/27/24 09:31 11/27/24 10:00 11/27/24 10:01 Temperature Pulse Rate 57 L Respiratory Rate 18 Blood Pressure 187/93 H 151/80 H Pulse Oximetry 92 Oxygen Delivery Method 11/27/24 10:30 11/27/24 10:30 11/27/24 11:00 Temperature Pulse Rate 60 61 Respiratory Rate 22 31 H Blood Pressure 154/94 H Pulse Oximetry 92 95 Oxygen Delivery Method 11/27/24 11:01 11/27/24 11:01 11/27/24 11:30 Temperature Pulse Rate 64 64 Respiratory Rate 26 H 18 Blood Pressure 190/92 H Pulse Oximetry 95 94 Oxygen Delivery Method 11/27/24 11:31 11/27/24 11:31 11/27/24 11:49 Temperature Pulse Rate 55 L 61 Respiratory Rate 24 30 H Blood Pressure 197/99 H Pulse Oximetry 92 95 Oxygen Delivery Method 11/27/24 11:49 11/27/24 11:50 11/27/24 11:50 Temperature Pulse Rate 59 L Respiratory Rate 24 Blood Pressure 172/105 H 182/101 H Pulse Oximetry 94 Oxygen Delivery Method 11/27/24 11:51 11/27/24 11:51 11/27/24 12:00 Temperature Pulse Rate 58 L Respiratory Rate 17 Blood Pressure 172/99 H 159/92 H Pulse Oximetry 96 Oxygen Delivery Method 11/27/24 12:00 Temperature Pulse Rate 54 L Respiratory Rate 16 Blood Pressure Pulse Oximetry 94 Oxygen Delivery Method MDM - Arrhythmia/Palpitations Lab Data 11/27/24 09:30 11/27/24 09:30 Labs: Lab Results 11/27/24 Range/Units 09:30 WBC 5.1 (4.5-11.0) X10^3/uL RBC 4.82 (4.5-5.9) X10^6/uL Hgb 14.8 (13.5-17.5) g/dL Hct 42.4 (41-53) % MCV 88.0 (80-100) fL MCH 30.8 (26-34) PG MCHC 35.0 (30-36) % RDW 13.6 (11.6-14.8) % Plt Count 173 (150-400) X10^3/uL Neut % (Auto) 66.0 (50-75) % Lymph % (Auto) 19.7 L (25-40) % [place] % (Auto) 9.3 (3-14) % Eos % (Auto) 3.8 (2-4) % Baso % (Auto) 1.2 (0-2) % Neut # (Auto) 3400 (5911-0957) /uL Lymph # (Auto) 1000 L (1400-3254) /uL [place] # (Auto) 500 (0-900) /uL Eos # (Auto) 200 (0-450) /uL Baso # (Auto) 100 (0-100) /uL PT 12.6 H (9.4-12.5) SECONDS INR 1.1 (0.9-1.3) APTT 29 (25.1-36.5) SECONDS Sodium 138 (137-145) mmol/L Potassium 3.9 (3.4-5.1) mmol/L Chloride 108 H (98-107) mmol/L Carbon Dioxide 21 L (22-32) mmol/L BUN 14 (9-20) mg/dL Creatinine 1.12 (0.66-1.25) mg/dL Estimated GFR > 60 (>60) mL/min BUN/Creatinine Ratio 12.5 (6-22) Glucose 114 H (70-99) mg/dL Calcium 8.8 (8.4-10.2) mg/dL Magnesium 1.8 (1.6-2.3) mg/dL Total Bilirubin 1.3 (0.2-1.3) mg/dL AST 40 (17-59) IU/L ALT 29 (<50) IU/L Alkaline Phosphatase 72 (38-126) U/L Total Creatine Kinase 196 H (55-170) U/L Troponin I < 0.012 (0.01-0.034) ng/mL NT-Pro-B Natriuret Pep 207 H (<125) pg/mL Total Protein 7.6 (6.3-8.2) g/dL Albumin 4.4 (3.5-5.0) g/dL Globulin 3.2 (1.7-4.1) g/dL Albumin/Globulin Ratio 1.4 (1.0-2.8) Lipase 43 (23-300) U/L Imaging Data Chest x-ray: Radiologist's Impresson: PROCEDURE: XR CHEST 1V INDICATIONS: Chest Pain TECHNIQUE: One view of the chest was acquired. COMPARISON: [facility], [place], XR CHEST 1V, 11/18/2021, 11:50. FINDINGS: Surgical changes and devices: None. Lungs and pleura: Mild pulmonary vascular congestion. No definite focal infiltrate. No pleural effusions or pneumothorax. Mediastinum: Mediastinal contours appear normal. Heart size is enlarged. Bones and chest wall: No suspicious bony lesions. Overlying soft tissues appear unremarkable. IMPRESSION: Mild cardiomegaly and mild pulmonary vascular congestion. No definite focal infiltrate. No pleural effusion or pneumothorax. Dictated by: Taqueria Ennis M.D. on 11/27/2024 at 9:41 Approved by: Taqueria Ennis M.D. on 11/27/2024 at 9:43 ECG Data Attestation: I personally reviewed and interpreted this ECG as follows: Interpretation: Normal sinus rhythm rate 67 MA interval 204 QRS 102 QTC 38 MDM Narrative Medical decision making narrative: MDM CC: Palpitations Complicating co-morbidities: Hypertension hyperlipidemia alcohol use disorder Data collected from: Patient Medical records reviewed: PCP record reviewed from 05/08/2024 Differential considered: Arrhythmia, electrolyte abnormality Exam documented above, pertinent findings include: Well-appearing 69-year-old regular rate and rhythm clear breath sounds Lab Test results independently reviewed as above. Pertinent findings: Troponin negative Electrolytes within normal CBC no anemia no leukocytosis No BEAN Independently reviewed EKG as above Sinus rhythm no ischemia first-degree AV miguelito block with a MA interval of 204 Imaging studies independently reviewed: Chest x-ray no acute cardiopulmonary process Consultations: DR. Betancur, updated patient's symptoms test results recommends metoprolol 25 twice a day his office will contact the patient. Treatments: Metoprolol 5 mg Re-evaluations: On monitor patient does have runs of PACs the last for about 30 seconds or so. He is symptomatic at the time. Discussed with him about alcohol use. He says that he does drink but not daily. Discussion: 69-year-old male presenting to day with heart palpitations. He actually used his phone leanna to record it. Frequent PACs, I do not appreciate an AV miguelito block. It is not atrial fibrillation. He does have some compensatory pauses. Blood pressure does go up slightly. He responded well to Lopressor heart rate did go down to 54. Hesitant to put him on 25 mg twice daily. Recommend 12.5 in the morning and 25 at night with monitoring of the heart rate. He will follow up closely with Cardiology. Discharge Plan Departure Patient Disposition: Home Clinical Impression: PAC (premature atrial contraction) Instructions: Premature Ventricular Beats Activity Restrictions/Additional Instructions: *You have been diagnosed with premature atrial complex *What to do: At this time Dr. Aviles's office should call you *Continue to take medications as directed Metoprolol 25 mg at night 12.5 mg in the morning, monitor your heart rate if you continue to have symptoms if heart rate remains between 55 and 60 then increase to 25 mg in the morning *Follow up with your primary care provider in 2-3 days or call [phone] *Return to ER if you should have increasing palpitations dizziness lightheaded, heart rate persistently less than 45 or any new, worsening or concerning symptoms Prescriptions: No Action aspirin 81 mg tablet,delayed release (DR/EC) 81 mg PO DAILY sildenafil 100 mg tablet 100 mg PO DAILY PRN (Reason: sexual activity) Qty: 30 2RF Rx Instructions: administer 30 minutes to 4 hours before activity lisinopril 40 mg tablet 40 mg PO DAILY Qty: 90 3RF magnesium oxide 400 mg (241.3 mg magnesium) tablet 400 mg PO DAILY potassium chloride 10 mEq tablet extended release 10 meq PO DAILY omeprazole 10 mg capsule,delayed release(DR/EC) 10 mg PO DAILY Qty: 90 3RF metoprolol succinate 25 mg tablet extended release 24 hr 25 mg PO BEDTIME valacyclovir [Valtrex] 1 gram tablet 1,000 mg PO DAILY Qty: 21 2RF Referrals: Turner Mcgregor DO [Primary Care Provider, [facility]] Stand Alone Forms: Patient Portal/API
[2024-11-27 09:37] LABS: Add Manual Diff / Slide Review NO; Hematocrit 42.4 % (41-53); Hemoglobin 14.8 g/dL (13.5-17.5); Lymphocytes Absolute Auto 1000 /uL (1100-4500); Mean Corpuscular HGB Conc 35.0 % (30-36); Mean Corpuscular Hemoglobin 30.8 PG (26-34); Mean Corpuscular Volume 88.0 fL (80-100); Platelet Count 173 X10^3/uL (150-400)
[2024-11-27] MEDS: ASPIRIN 81 MG CHEW TAB 324 MG PO (09:37)
[2024-11-27 09:48] LABS: INR 1.1 (0.9-1.3); Prothrombin Time 12.6 SECONDS (9.4-12.5)
[2024-11-27 09:50] LABS: PTT Partial Thromboplastin Tim 29 SECONDS (25.1-36.5)
[2024-11-27 09:54] LABS: Alanine Aminotransferase 29 IU/L (<50); Albumin 4.4 g/dL (3.5-5.0); Albumin Globulin Ratio 1.4 (1.0-2.8); Alkaline Phosphatase 72 U/L (38-126); Blood Urea Nitrogen 14 mg/dL (9-20); Calcium 8.8 mg/dL (8.4-10.2); Carbon Dioxide 21 mmol/L (22-32); Chloride 108 mmol/L (98-107); Creatine Kinase 196 U/L (55-170); Estimated Glomerular Filt Rate > 60 mL/min (>60); Globulin 3.2 g/dL (1.7-4.1); Glucose 114 mg/dL (70-99); HEMOLYSIS < 15 (0-50); Lipase 43 U/L (23-300); Magnesium 1.8 mg/dL (1.6-2.3); Potassium 3.9 mmol/L (3.4-5.1); Sodium 138 mmol/L (137-145); Total Protein 7.6 g/dL (6.3-8.2)
[2024-11-27 10:06] LABS: NT-proBNP (BNP-Adult 18+) 207 pg/mL (<125); Troponin I < 0.012 ng/mL (0.01-0.034)
[2024-11-27] MEDS: METOPROLOL TARTRATE 5 MG/5 ML INJ IV (11:22)
== END 2024-11-27 12:09 | disposition home or self-care (01) ==
PROVIDERS: Emergency Provider Emergency Medicine; PCP Family Medicine
DX: I49.1 Atrial premature depolarization (principal); I10 Essential (primary) hypertension; E78.5 Hyperlipidemia, unspecified; F10.90 Alcohol use, unspecified, uncomplicated
CPT/HCPCS: 36415; 71045; 80053; 82550; 83690; 83735; 83880; 84484; 85025; 85610; 85730; 93005; 93010; 96374; 99284

== ENCOUNTER → 2024-12-13 08:19 | Outpatient (CLI) | payer MEDICARE, SELFPAY ==
[2023-03-16 16:26] VITALS: BMI 32.1
[2024-12-13 10:14] LABS: Blood Urea Nitrogen 20 mg/dL (9-20); Calcium 9.5 mg/dL (8.4-10.2); Carbon Dioxide 28 mmol/L (22-32); Chloride 101 mmol/L (98-107); Estimated Glomerular Filt Rate 58 mL/min (>60); Glucose 103 mg/dL (70-99); HEMOLYSIS < 15 (0-50); Magnesium 1.9 mg/dL (1.6-2.3); Potassium 4.5 mmol/L (3.4-5.1); Sodium 140 mmol/L (137-145)
== END ==
PROVIDERS: PCP Family Medicine; Referring Provider Internal Medicine Cardiovascular Disease; Visit Provider Internal Medicine Cardiovascular Disease
DX: I10 Essential (primary) hypertension (principal)
CPT/HCPCS: 36415; 80048; 83735

== ENCOUNTER → 2025-01-29 08:13 | Outpatient (CLI) | payer MEDICARE, SELFPAY ==
[2023-03-16 16:26] VITALS: BMI 32.1
[2025-01-29 09:48] LABS: Blood Urea Nitrogen 17 mg/dL (9-20); Calcium 9.2 mg/dL (8.4-10.2); Carbon Dioxide 28 mmol/L (22-32); Chloride 105 mmol/L (98-107); Estimated Glomerular Filt Rate > 60 mL/min (>60); Glucose 100 mg/dL (70-99); HEMOLYSIS < 15 (0-50); Potassium 4.2 mmol/L (3.4-5.1); Sodium 140 mmol/L (137-145)
== END ==
PROVIDERS: PCP Family Medicine; Referring Provider Family Medicine; Visit Provider Internal Medicine Cardiovascular Disease
DX: I10 Essential (primary) hypertension (principal); I48.92 Unspecified atrial flutter
CPT/HCPCS: 36415; 80048